=== PATIENT | female | born 1955 | race Caucasian/White ===

== ENCOUNTER → 2016-08-17 | Outpatient (CLI) | payer OTHER ==
[~2016-08-17] MED LIST: ADVIN25/60 INH; AMOX875T PO; ASPI81TA28 PO; BIOT1CAP8 PO; CEPH500C2 PO; CITA40TA4 PO; CYAN100T PO; DXM/4 PO; FLUT0.15 NAE; FLV1 PO; HYDR-5688 PO; IPRA1AER2 INH; LACTCHW3 PO; LEVO1TAB35 PO; MELATAB2 PO; MULT-506 PO; NLT50 PO; OPTIRAY 320 IV PRN; POTA20TA13 PO; PRD/1 PO; PRED10TA PO; PRLSR20 PO; PROC1TAB5 PO; SALI1SPR15 NAE; THIA100T11 PO; THM100 PO; VITACRE; ZINC1CAP PO
--- NOTE | 2016-08-17 13:51 | DIAGNOSTIC IMAGING REPORT ---
CHEST CT WITH CONTRAST CT DOSE: 248.95 mGycm HISTORY: Lung carcinoma LUNG CA, BREAST CA TECHNIQUE: Multiaxial CT images of the chest were performed following the intravenous administration of contrast. COMPARISON: Chest CT 05/21/2016. PET scan 06/07/2016 FINDINGS: Improved study. Findings of adenopathy involving the hilar region on the left, mediastinal, and right axillary adenopathy are considerably improved. The largest node in the high right axilla has diminished from 3.6 to 2.4 cm maximum dimension. Similar decreases at all additional foci are noted. Lateral right breast nodule is unchanged. 1.4 cm nodular density left lower lobe has diminished to 7 mm. There are no or interval pulmonary parenchymal nodular or infiltrative-type changes. Fibrotic changes anterior aspect left upper lobe medially appears stable. IMPRESSION: 1. Considerable improvement in the appearance of the chest. 2. All pathologic findings have diminished with the right axillary dominant node dimension decreasing from 3.6 cm to 2.4 cm. 3. Nodular density left lung base has diminished from 1.4 cm to 7 mm. 4. No evidence for new interval or progressive disease Electronically signed by: Mehul Savage M.D. 08/17/2016 1:50 PM Dictated Date/Time: 08/17/2016 1:43 PM
== END | disposition home or self-care (01) ==
LOC: C.CTS 13:08
PROVIDERS: ATTEND Internal Medicine Hematology & Oncology
DX: C50.411 Malignant neoplasm of upper-outer quadrant of right female breast (principal); C34.32 Malignant neoplasm of lower lobe, left bronchus or lung

== ENCOUNTER → 2016-08-24 | Day surgery (SDC) | payer OTHER ==
[~2016-08-24] VITALS: Ht 160 cm; Wt 59.0 kg
[~2016-08-24] MED LIST changes: +ATROPINE SULFATE 0.1 MG/ML 5ML SYR IV PRN; +CEFAZOLIN 2000 MG/60 ML D5W IV SCH; +CEFAZOLIN SOD 1 GM VIAL ONE; +EpHEDrine SULFATE INJ 50 MG/ML AMP IV PRN; +FENTANYL CITRATE INJ 50 MCG/1 ML 2 ML VIAL IV PRN; +FENTANYL CITRATE INJ 50 MCG/1 ML 2 ML VIAL ONE; +HEPARIN SOD (PORCINE) 1000 UNIT/ML 10 ML VIAL ONE; +HYDROCODONE/ACETAMOPHEN 5/325MG TAB PO PRN; +LACTATED RINGER'S 1000ML 1,000 ML IV SCH; +LIDOCAINE 2% 20 MG/ML 5ML SYR ONE; +LIDOCAINE HCL 1% 20 ML VIAL ONE; +MIDAZOLAM HCL 1 MG/ML 2ML VIAL ONE; +NURSING VERBAL MED ORDER ONE; +ONDANSETRON INJ 2 MG/ML 2 ML VIAL IV PRN; -OPTIRAY 320 IV PRN; +PROMETHAZINE HCL INJ 12.5 MG in SODIUM CHLORIDE 0.9% 50ML 50 ML IV PRN; +PROPOFOL IV EMULSION 10 MG/ML 20 ML VIAL IV ONE; +SCOPOLAMINE 1.5 MG TDSY TD ONE; +THROMBIN FOR SOLN 20000 UNIT KIT ONE
[2016-08-24 05:44] VITALS: BP 106/78; PULSE 74; TEMP 36.7; O2SAT 94; Ht 160 cm; Wt 59.0 kg
--- NOTE | 2016-08-24 06:14 | History and Physical ---
History & Physical Date Aug 24, 2016. History of Present Illness The patient is a 61 year old female with a history of Lt lung small cell Ca and also Rt breast cancer w/ positive Rt axillary LNs- undergoing neoadjuvant chemo. Chemo is currently ongoing and she is in need of an access port Past Medical/Surgical History Medical Problems: (1) Acute anxiety (2) Alcohol abuse (3) Alcohol abuse (4) Alcohol abuse (5) Alcohol intoxication (6) Alcohol intoxication (7) Alcohol withdrawal (8) Alcoholism (9) Anxiety (10) Anxiety (11) COPD exacerbation (12) COPD exacerbation (13) Depression (14) Dizzy (15) Fall (16) Fibromyalgia (17) Head trauma (18) Hepatitis (19) Hypokalemia (20) Hyponatremia (21) Hypoxia (22) Malnourished (23) Nasal fracture (24) PTSD (post-traumatic stress disorder) (25) Right shoulder injury Additional History Hepatic Disease: No Endocrine Disorder: No Allergies Coded Allergies: Vinegar (Verified Allergy, Severe, ANAPHYLAXIS, 08/24/16) Sulfa Antibiotics (Verified Allergy, Intermediate, HIVES, 08/24/16) Adhesives (Verified Adverse Reaction, Mild, `, 08/24/16) Home Medications Scheduled Aspirin (Aspirin Ec), 81 MG PO DAILY Biotin (Biotin), 1 CAN PO DAILY Citalopram (Citalopram Hydrobromide), 40 MG PO DAILY Multivitamin (Multivitamin), 1 TAB PO DAILY Naltrexone HCl (Naltrexone HCl), 50 MG PO DAILY Scheduled PRN Fluticasone Prop/Salmeterol (Advair Diskus 250/50 60 Dose), 1 PUFF INH BID PRN for SOB/Wheezing Ipratropium-Albuterol (Combivent Respimat), 1 PUFFS INH Q4 PRN for Shortness of Breath Physical Examination Skin: warm/dry, no rash Head: atraumatic Neck: supple Respiratory/Chest: no respiratory distress Cardiovascular: regular rate, rhythm Abdomen / GI: non tender Extremities: normal inspection Neurologic/Psych: alert Diagnosis Lung and breast cancer Plan of Treatment for access port
--- NOTE | 2016-08-24 07:52 | [facility] Post Operative Brief Note ---
Immediate Operative Summary Operative Date Aug 24, 2016. Pre-Operative Diagnosis Breast Cancer, lung cancer Post-Operative Diagnosis Same as preoperative Procedure(s) Performed Infusaport Insertion, Left Subclavian Vein Surgeon Dr. Raheem Mercer Can Runner Surgeon(s) nurse Estimated Blood Loss 10ml Findings placed via Lt subclav vein Specimens none per surgeon Anesthesia local/ sedation Complication(s) None Disposition Recovery Room / PACU
--- NOTE | 2016-08-24 07:56 | Discharge Instructions ---
Discharge Instructions Date of Service Aug 24, 2016. Visit Reason for Visit: Breast Cancer and lung cancer Discharge Discharge Diagnosis / Problem: breast and lung cancer Discharge Goals Goal(s): Decrease discomfort, Improve function, Improve disease control Activity Recommendations Activity Limitations: as noted below Lifting Limitations: no more than 10 pounds Exercise/Sports Limitations: until after follow-up appointment May Resume Sexual Activity: when tolerated Shower/Bathe: tomorrow Driving or Machine Use: resume 1 day after discharge SPECIAL CARE INSTRUCTIONS: * Cover incisions and change daily for comfort/drainage. * May use ibuprofen for pain as tolerated. * Expect some swelling and bruising. Call your doctor if: * Temperature above 101 degrees * Pain not relieved by pain medicine ordered * There is increased drainage or redness from any incision * You have any unanswered questions or concerns [phone]. FOLLOW UP VISIT: If not already scheduled, please call the office for a follow-up visit. for 2 weeks- suture removal OFFICE PHONE NUMBER: Dr. Mercer Office Anesthesia . Post Anesthesia Instructions: If you have had General Anesthesia or IV Sedation: * Do not drive today. * Resume driving when surgeon permits. * Do not make important decisions or sign legal documents today. * Call surgeon for: 1. Temperature elevations greater than 101 degrees F. 2. Uncontrollable pain. 3. Excessive bleeding. 4. Persistent nausea and vomiting. 5. Medication intolerance (nausea, vomiting or rash). * For nausea and vomiting use only clear liquids such as: tea, soda, bouillon until nausea subsides, then gradually increase diet as tolerated. * If you have any concerns or questions, call your surgeon's office. If physician is unavailable and it is an emergency, call 911 or go to the nearest emergency room. . Diet Recommendations Recommended Home Diet: resume previous diet Procedures Procedures Performed: Infusaport Insertion, Left Subclavian Vein Pending Studies Studies pending at discharge: no Medical Emergencies . Who to Call and When: Medical Emergencies: If at any time you feel your situation is an emergency, please call 911 immediately. . Non-Emergent Contact Non-Emergency issues call your: Oncologist, Surgeon . . "Provider Documentation" section prepared by Raheem Mercer.
--- NOTE | 2016-08-24 08:06 | OPERATIVE REPORT ---
DATE OF OPERATION: 08/24/2016 PREOPERATIVE DIAGNOSIS: Breast cancer and lung cancer. POSTOPERATIVE DIAGNOSIS: Same. NAME OF OPERATION: Access port placement. STAFF SURGEON: Dr. Mercer. ANESTHESIA: 1% plain lidocaine with sedation. PROCEDURE: The patient was brought in the operating room and placed on the operating table in supine position. A roll was placed between her shoulders. Her chest was prepped and draped in usual fashion. Using 1% plain lidocaine, skin and subcutaneous tissue over the left deltopectoral groove were anesthetized. Incision made carrying dissection down to the cephalic vein which was very small. I could not use the vein for placement. There was some mild bleeding. I placed a suture around the vein. At this point the patient was placed in Trendelenburg position. Using a puncture technique the left subclavian vein was localized, a wire passed under fluoroscopy and then the needle removed. At this point, the patient was placed supine and then the dilator and introducer passed over the wire under fluoroscopy. The dilator and wire were removed and then the catheter passed through the introducer, positioned appropriately and then the introducer removed. A pocket was fashioned in the chest wall. The catheter was shortened and then attached to the port. Port was aspirated and flushed with heparinized solution. The port was placed into the pocket and secured to the chest wall using 3-0 Prolene suture. The site was irrigated with antibiotic solution. Subcutaneous tissue reapproximated using 2-0 chromic catgut suture then the skin reapproximated using 4-0 nylon suture. The patient was transferred to recovery room in stable condition. I attest to the content of the Intraoperative Record and any orders documented therein. Any exceptio ns are noted below.
--- NOTE | 2016-08-24 08:12 | DIAGNOSTIC IMAGING REPORT ---
CHEST ONE VIEW PORTABLE CLINICAL HISTORY: port dyspnea. Replacement. COMPARISON STUDY: 05/22/2016 FINDINGS: Placement of a central catheter in the superior vena cava. No evidence pneumothorax. Lungs remain clear. IMPRESSION: Central catheter placed in the superior vena cava. No evidence pneumothorax. Electronically signed by: Mehul Savage M.D. 08/24/2016 8:10 AM Dictated Date/Time: 08/24/2016 8:09 AM
--- NOTE | 2016-08-24 08:14 | Anesthesiology Progress Note ---
Anesthesia Post Op Note Date & Time Aug 24, 2016 at 08:14 Vital Signs Pain Intensity: 0 Vital Signs Past 12 Hours Date Time Temp Pulse Resp B/P Pulse Ox O2 Delivery O2 Flow Rate FiO2 08/24/16 08:05 36.5 69 18 120/67 94 Room Air 08/24/16 07:55 75 16 127/76 93 Room Air 08/24/16 07:49 36.4 74 16 107/68 96 Room Air 08/24/16 05:44 36.7 74 18 106/78 94 Room Air Notes Mental Status: alert / awake / arousable, participated in evaluation Pt Amnestic to Procedure: Yes Nausea / Vomiting: adequately controlled Pain: adequately controlled Airway Patency, RR, SpO2: stable & adequate BP & HR: stable & adequate Hydration State: stable & adequate Anesthetic Complications: no major complications apparent
[2016-08-24 08:20] VITALS: BP 115/80; PULSE 76; TEMP 36.5; O2SAT 94
[2016-08-24 08:50] VITALS: BP 126/75; PULSE 69; TEMP 36.6; O2SAT 96
[2016-08-24 09:20] VITALS: BP 127/84; PULSE 72; TEMP 36.6; O2SAT 96
== END | disposition home or self-care (01) ==
LOC: C.ACU 04:52
PROVIDERS: ATTEND Surgery
DX: C50.919 Malignant neoplasm of unspecified site of unspecified female breast (principal); C34.90 Malignant neoplasm of unspecified part of unspecified bronchus or lung; M19.90 Unspecified osteoarthritis, unspecified site; J44.9 Chronic obstructive pulmonary disease, unspecified

== ENCOUNTER → 2016-12-18 | Outpatient (CLI) | payer OTHER ==
[~2016-12-18] MED LIST changes: -ATROPINE SULFATE 0.1 MG/ML 5ML SYR IV PRN; -BIOT1CAP8 PO; -CEFAZOLIN 2000 MG/60 ML D5W IV SCH; -CEFAZOLIN SOD 1 GM VIAL ONE; -CYAN100T PO; -EpHEDrine SULFATE INJ 50 MG/ML AMP IV PRN; -FENTANYL CITRATE INJ 50 MCG/1 ML 2 ML VIAL IV PRN; -FENTANYL CITRATE INJ 50 MCG/1 ML 2 ML VIAL ONE; +GADAVIST IV PRN; -HEPARIN SOD (PORCINE) 1000 UNIT/ML 10 ML VIAL ONE; -HYDROCODONE/ACETAMOPHEN 5/325MG TAB PO PRN; -LACTATED RINGER'S 1000ML 1,000 ML IV SCH; -LIDOCAINE 2% 20 MG/ML 5ML SYR ONE; -LIDOCAINE HCL 1% 20 ML VIAL ONE; -MELATAB2 PO; -MIDAZOLAM HCL 1 MG/ML 2ML VIAL ONE; -NURSING VERBAL MED ORDER ONE; -ONDANSETRON INJ 2 MG/ML 2 ML VIAL IV PRN; -POTA20TA13 PO; -PROMETHAZINE HCL INJ 12.5 MG in SODIUM CHLORIDE 0.9% 50ML 50 ML IV PRN; -PROPOFOL IV EMULSION 10 MG/ML 20 ML VIAL IV ONE; -SCOPOLAMINE 1.5 MG TDSY TD ONE; -THROMBIN FOR SOLN 20000 UNIT KIT ONE; -ZINC1CAP PO
--- NOTE | 2016-12-18 12:38 | DIAGNOSTIC IMAGING REPORT ---
MRI OF THE BRAIN COMBO CLINICAL HISTORY: Breast cancer. COMPARISON STUDY: MRI of the brain dated 06/05/2016 and 05/22/2016. TECHNIQUE: MRI of the brain was performed utilizing various T1 and T2-weighted sequences in the axial, sagittal, and coronal planes. Contrast-enhanced sequences were acquired following the administration of 6 cc of Gadavist. FINDINGS: Brain parenchyma: There is minimal patchy subcortical and periventricular microangiopathic disease. The brain parenchyma is otherwise normal in appearance. There is no hemorrhage or mass effect. There is no restricted diffusion to suggest acute ischemia. The small focus of restricted diffusion seen in the dejan seen on 06/05/2016 is no longer apparent. There is a punctate focus of abnormal enhancement identified within the left cerebellar peduncle on axial image #6, which was also corroborated on the sagittal sequence. An additional punctate focus of enhancement is questioned in the right posterior frontal lobe, best seen on sagittal postcontrast image #7 and coronal postcontrast image #14. There is no associated edema. Manzanares-white matter differentiation is preserved. No extra-axial fluid collection is seen. The cerebellar tonsils are normal in configuration. Ventricles, sulci, and cisterns: Normal in configuration. Pituitary and sella: Partially empty sella is incidentally noted. Intracranial vasculature: Normal flow voids are maintained at the skull base. Orbits: The bony orbits are grossly intact. Orbital contents are normal in appearance. Sinuses and mastoids: There are small bilateral mastoid effusions. Mild to moderate nodular mucosal thickening is seen in the left maxillary antrum. Trace mucosal thickening is seen in the right maxillary antrum. The remaining paranasal sinuses are clear. Calvarium: Unremarkable. Cervical cord: Partially visualized cervical spinal cord is normal in morphology and signal intensity. IMPRESSION: 1. Question 2 punctate foci of abnormal enhancement within the right frontal lobe and the left cerebellar peduncle. These were both seen on more than one sequence and were not clearly identified on prior MRI examinations. Although indeterminant, these are concerning for punctate foci of metastatic disease. Close attention at follow-up is recommended. 2. No additional enhancing lesions are identified. 3. There is no hemorrhage, mass effect, or evidence of acute ischemia. 4. The tiny focus of restricted diffusion in the dejan seen on 06/05/2016 is no longer apparent. Electronically signed by: Bryson Moyer M.D. 12/18/2016 12:37 PM Dictated Date/Time: 12/18/2016 12:24 PM
== END | disposition home or self-care (01) ==
LOC: C.MRIBC 11:35
PROVIDERS: ATTEND Nurse Practitioner Family
DX: C50.411 Malignant neoplasm of upper-outer quadrant of right female breast (principal)

== ENCOUNTER 2017-01-01 07:46 | Inpatient (IN) | payer OTHER ==
[2016-12-26 13:58] VITALS: BMI 23.0
--- NOTE | 2016-12-26 14:29 | PAT Medication Instructions ---
Service Date Dec 26, 2016. Current Home Medication List Aspirin (Aspirin Ec), 81 MG PO QPM Citalopram (Citalopram Hydrobromide), 40 MG PO QAM Fluticasone Prop/Salmeterol (Advair Diskus 250/50 60 Dose), 1 PUFF INH BID PRN for SOB/Wheezing Fluticasone Propionate (Nasal) (Flonase Allergy Relief), 2 SPRAYS GISSELLE PN Ipratropium-Albuterol (Combivent Respimat), 1 PUFFS INH Q4 PRN for Shortness of Breath Multivitamin (Multivitamin), 1 TAB PO QAM Omeprazole (Prilosec), 20 MG PO QAM Saline (Saline Nasal [place] Infant), 1-2 SPRY GISSELLE PRN Medication Instructions For Your Scheduled Surgery - Stopped already in anticipation of procedure: Aspirin (Aspirin Ec), 81 MG PO QPM - Hold the following medications the morning of surgery: Multivitamin (Multivitamin), 1 TAB PO QAM - Take the following medications the morning of surgery with a sip of water OTHERWISE NOTHING TO EAT OR DRINK AFTER MIDNIGHT: Saline (Saline Nasal [place] ), 1-2 SPRY GISSELLE PRN Omeprazole (Prilosec), 20 MG PO QAM Citalopram (Citalopram Hydrobromide), 40 MG PO QAM Fluticasone Prop/Salmeterol (Advair Diskus 250/50 60 Dose), 1 PUFF INH BID PRN for SOB/Wheezing Fluticasone Propionate (Nasal) (Flonase Allergy Relief), 2 SPRAYS GISSELLE PN Ipratropium-Albuterol (Combivent Respimat), 1 PUFFS INH Q4 PRN for Shortness of Breath - Take the following medications as scheduled the night before surgery: Saline (Saline Nasal [place] ), 1-2 SPRY GISSELLE PRN Fluticasone Prop/Salmeterol (Advair Diskus 250/50 60 Dose), 1 PUFF INH BID PRN for SOB/Wheezing Fluticasone Propionate (Nasal) (Flonase Allergy Relief), 2 SPRAYS GISSELLE PN Ipratropium-Albuterol (Combivent Respimat), 1 PUFFS INH Q4 PRN for Shortness of Breath If you have any questions please call us at [phone] or [phone] or [phone]
--- NOTE | 2016-12-26 15:13 | DIAGNOSTIC IMAGING REPORT ---
TWO VIEW CHEST CLINICAL HISTORY: Preoperative examination. FINDINGS: PA and lateral chest radiographs are compared to study dated 08/24/2016 and correlated with chest CT dated 08/17/2016. A left subclavian central venous infusion port is unchanged in position. The cardiomediastinal silhouette is unremarkable. There is atherosclerotic calcification of the thoracic aorta. Calcified mediastinal and hilar lymph nodes are observed. Dizziness and chronic interstitial thickening are similar to previous. No airspace consolidation or pleural effusion is identified. There is no pneumothorax. The skeletal structures are osteopenic. Degenerative change and scoliosis are noted in the thoracic spine. IMPRESSION: Emphysema and chronic changes as above. No acute cardiopulmonary abnormality is seen. Electronically signed by: Bryson Moyer M.D. 12/26/2016 3:12 PM Dictated Date/Time: 12/26/2016 3:10 PM
[2017-01-01] VITALS (8 sets, daily range): BP systolic 96–108; BP diastolic 64–70; PULSE 74–89; TEMP 36.5–36.6; O2SAT 92–95; Ht 160 cm; Wt 59.6 kg
[~2017-01-01] VITALS: Ht 160 cm; Wt 59.6 kg
[~2017-01-01 07:46] MED LIST changes: -AMOX875T PO; +CEFAZOLIN 2000 MG/60 ML D5W IV SCH; -CEPH500C2 PO; -DXM/4 PO; -FLV1 PO; -GADAVIST IV PRN; -HYDR-5688 PO; +LACTATED RINGER'S 1000ML 1,000 ML IV SCH; -LACTCHW3 PO; -LEVO1TAB35 PO; -NLT50 PO; -PRD/1 PO; -PRED10TA PO; -PROC1TAB5 PO; -THIA100T11 PO; -THM100 PO; -VITACRE
--- NOTE | 2017-01-01 10:09 | DIAGNOSTIC IMAGING REPORT ---
LYMPHOSCINTIGRAPHY CLINICAL HISTORY: 61-year-old female with right breast cancer. PROCEDURE: Using standard sterile technique, 4 intradermal and one deep injection of 0.506 mCi of Lymphoseek was placed in the right breast. The patient tolerated the procedure well. There were no immediate complications. The patient was subsequently transported to the surgical suite. No imaging was obtained at the referring physician's request. IMPRESSION: Injection of 0.506 mCi of Lymphoseek in the right breast. Electronically signed by: Ethan Benitez M.D. 01/01/2017 10:08 AM Dictated Date/Time: 01/01/2017 10:07 AM
--- NOTE | 2017-01-01 11:41 | History & Physical Bridge Note ---
H&P Re-Evaluation Bridge Note: I have examined the patient, reviewed the History & Physical and in the interval since the performance of the History & Physical I have noted the following changes of clinical significance: No changes noted
[2017-01-01] MEDS ORDERED: ISOSULFAN BLUE 10 MG/ML VIAL 5 ML ONE (11:43)
[2017-01-01] MEDS ORDERED: BUPIVACAINE 0.5 % 5 MG/1 ML MPF 30ML VIAL ONE (11:44)
[2017-01-01] MEDS ORDERED: MIDAZOLAM HCL 1 MG/ML 2ML VIAL ONE (11:47)
[2017-01-01] MEDS ORDERED: FENTANYL CITRATE INJ 50 MCG/1 ML 2 ML VIAL ONE (11:47)
[2017-01-01] MEDS ORDERED: HYDROmorphone INJ 2 MG/ML SYR/VIAL ONE (13:07)
[2017-01-01] MEDS ORDERED: LACTATED RINGER'S 1000ML 1,000 ML IV SCH (13:36)
[2017-01-01] MEDS ORDERED: HYDROCODONE/ACETAMOPHEN 5/325MG TAB PO PRN (13:45)
[2017-01-01] MEDS ORDERED: PROMETHAZINE HCL INJ 25 MG in SODIUM CHLORIDE 0.9% 50ML 50 ML IV PRN (13:45)
[2017-01-01] MEDS ORDERED: ONDANSETRON INJ 2 MG/ML 2 ML VIAL IV PRN ×2 (13:45→14:30)
[2017-01-01] MEDS ORDERED: MoRPHine SULFATE 4 MG/ML 1 ML CARP\\VIAL IV PRN (13:45)
[2017-01-01] MEDS ORDERED: HYDROmorphone INJ 1 MG/ML SYR ONE (14:01)
--- NOTE | 2017-01-01 14:21 | Anesthesiology Progress Note ---
Anesthesia Post Op Note Date & Time Jan 01, 2017 at 14:21 Vital Signs Pain Intensity: 2 Vital Signs Past 12 Hours Date Time Temp Pulse Resp B/P (MAP) Pulse Ox O2 Delivery O2 Flow Rate FiO2 01/01/17 14:05 89 16 101/64 (75) 97 Oxymask 8 01/01/17 13:55 92 17 105/56 (78) 99 Oxymask 10 01/01/17 13:47 36.6 97 14 96/63 (76) 98 Oxymask 10 01/01/17 09:56 36.5 86 20 107/64 (78) 94 Room Air Notes Mental Status: alert / awake / arousable, participated in evaluation Pt Amnestic to Procedure: Yes Nausea / Vomiting: adequately controlled Pain: adequately controlled Airway Patency, RR, SpO2: stable & adequate BP & HR: stable & adequate Hydration State: stable & adequate Anesthetic Complications: no major complications apparent
[2017-01-01] MEDS ORDERED: EpHEDrine SULFATE INJ 50 MG/ML AMP IV PRN (14:30)
[2017-01-01] MEDS ORDERED: ATROPINE SULFATE 0.1 MG/ML 5ML SYR IV PRN (14:30)
[2017-01-01] MEDS ORDERED: FENTANYL CITRATE INJ 50 MCG/1 ML 2 ML VIAL IV PRN (14:30)
[2017-01-01] MEDS ORDERED: HYDROmorphone INJ 1 MG/ML SYR IV PRN (14:30)
--- NOTE | 2017-01-01 14:43 | [facility] Operative Report ---
Operative Report Operative Date Jan 01, 2017. Pre-Operative Diagnosis Right breast cancer Post-Operative Diagnosis Same Procedure(s) Performed Right Breast Lumpectomy with Needle Localization, and Right [place] Lymph Node Biopsy Surgeon Dr Mercer Clinical Pharmacist Surgeon(s) Ronald Durbin PA-C Estimated Blood Loss 25ml Findings Large Rt axillary mass Specimens A. Right breast tissue needle and skin lateral, long silk medial, short silk superior B. Right breast tissue additional superior tissue silk lateral, methylene blue new margin C. Right breast tissue additional inferior tissue silk lateral, methylene blue new margin D. Right axillary tissue Drains #[id number] ALVARO to Rt axilla Anesthesia gen Complication(s) None Disposition Recovery Room / PACU Description of Procedure Patient was brought in the operative room placed in operative room table in the supine position. Her right arm was extended onto an arm board and her axilla and breast prepped and draped in usual fashion. He had a needle in the axilla and in the breast placed in the breast center. Scissors was made around the needle and the breast carry dissection down excising the tissue which was marked with the needle and skin lateral long silk suture medial short silk silk suture superior. Tissue was placed into into the Faxitron and the image sent to the breast center. The clip was within the center of the specimen. She'll superior and inferior tissue were taken sizing the medial deep margin. These specimens were marked with a silk suture lateral and methylene blue on the new margin. Tissue is reapproximated using 20 plain catgut suture and the skin reapproximated using 5-0 Prolene suture. Right axilla was approached and incision made around the needle. Needle was withdrawn and subcutaneous tissue but the mass was deep. A large right axillary mass and other lymph nodes which were excised. There were associated blood vessels which were ligated using 2-0 plain and chromic suture. Deep tissue was reapproximated using 20 plain catgut suture after a #15 round David-Valero drain was placed into the axilla secured to the skin using 3-0 nylon suture. It was reapproximated using 4-0 nylon suture. Resting is applied and patient transferred to recovery room. I attest to the content of the Intraoperative Record and any orders documented therein. Any exceptions are noted below.
--- NOTE | 2017-01-01 15:12 | MAMMOGRAPHY REPORT ---
BILATERAL DIGITAL DIAGNOSTIC MAMMOGRAM TOMOSYNTHESIS WITH CAD: 01/01/2017 CLINICAL HISTORY: 61-year-old woman presents for preoperative needle and wire localization for biopsy -proven right breast cancer and right axillary lymph node containing metastatic disease. She is stat us post chemotherapy, mostly targeting her lung cancer which was diagnosed just after her breast canc er. TECHNIQUE: Bilateral breast tomosynthesis in addition to standard 2D mammography was performed. Curre nt study was also evaluated with a Computer Aided Detection (CAD) system. COMPARISON: Comparison is made to exams dated: 04/24/2016 mammogram, 03/23/2016 mammogram, 04/02/2013 mammogram, 03/27/2012 mammogram, 03/22/2011 mammogram, and 03/16/2010 mammogram - [facility]. BREAST COMPOSITION: There are scattered areas of fibroglandular density in both breasts. FINDINGS: There is a ribbon shaped metallic biopsy marker in the upper outer middle one third of the right breast, denoting the previous location of the patient's biopsy proven cancer. Currently, there is minimal architectural distortion to the biopsy marker clip but no persistent mass as seen on the April 2016 mammograms. An 8.6 mm abnormal lymph node in the far posterior superior right breast o n the MLO view is no longer seen. A portion of an enlarged right axillary lymph node in the far supe rior and posterior MLO view is incompletely visualized. There are mild vascular calcifications and scattered benign-appearing calcifications within the left breast. No obvious new mass, focal area of architectural distortion or suspicious mass or calcificat ions are seen in the left breast. IMPRESSION: 1. There is near complete mammographic resolution of the patient's biopsy proven cancer in the right 10:00 breast. For needle localization purposes, targeted ultrasound will be performed to see if the biopsy marker clip is identified or if there is any residual masslike tissue for localization purpos es. Please refer to the needle localization report for full detail. 2. No mammographic evidence of malignancy in the left breast. Approximately 10% of breast cancers are not detected with mammography. A negative mammographic report should not delay biopsy if a clinically suggestive mass is present. Evie Power M.D. ay/:01/01/2017 12:33:38 House Mover: Bridgette ADAMS(Yesika)(Elizabeth), [facility] BI-RADS Code: n/a
[2017-01-01] MEDS ORDERED: PROMETHAZINE HCL INJ 12.5 MG in SODIUM CHLORIDE 0.9% 50ML 50 ML IV PRN (16:30)
[2017-01-01] MEDS: MoRPHine SULFATE 2 MG/ML CARP IV PRN ×2 (18:15→23:35)
[2017-01-01] MEDS: CEFAZOLIN IV 1,000 MG in DEXTROSE 5% 50ML 50 ML IV SCH ×2 (18:15→23:35)
--- NOTE | 2017-01-01 20:05 | Medical Consult ---
Consultation Date of Consultation: Jan 01, 2017. Attending Physician: Raheem Mercer M.D. Reason for Consultation: Medical Consultation History of Present Illness This is a 61 yo F with PMHx of small cell lung carcinoma stage IIIB origionally diagnosed via biopsy on 05/22/2016, s/p 6 cycles of taxotere and carboplatin completed on 10/02/16, XRT finished on 12/13/16. 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 Other PMHx includes alcohol abuse, anxiety, PTSD, COPD. She presents for an elective Left breast lumpectomy by Dr. Mercer. The patient was seen and examined at bedside s/p procedure. She is sitting up in bed and reports some soreness, but overall feels well. She has ambulated to the bathroom with assistance. She ate dinner without difficulty. She is currently wearing 4L via NC but reports she does not wear supplemental O2 at home. Past Medical/Surgical History Medical Problems: (1) Acute alcohol intoxication Status: Acute (2) Alcohol abuse Status: Chronic (3) Alteration in self-care ability Status: Acute (4) Anxiety Status: Chronic (5) Closed head injury Status: Acute (6) Depression Status: Chronic (7) Facial abrasion Status: Acute (8) Facial contusion Status: Acute (9) Fibromyalgia Status: Chronic (10) Generalized weakness Status: Acute (11) Hepatitis Status: Chronic (12) Hyponatremia Status: Acute (13) Malnourished Status: Chronic (14) PTSD (post-traumatic stress disorder) Status: Chronic Family History FH: cancer FH: heart disease Social History Smoking Status: Former Smoker Smokeless Tobacco Use: No Alcohol Use: occasionally Drug Use: none Marital Status: single Housing Status: lives alone Occupation Status: employed Allergies Coded Allergies: Vinegar (Verified Allergy, Severe, ANAPHYLAXIS, 01/01/17) Sulfa Antibiotics (Verified Allergy, Intermediate, HIVES,SWELLING,RASH, ) Latex (Verified Allergy, Mild, rash, 01/01/17) Adhesives (Verified Adverse Reaction, Mild, RASH IRRITATION, 01/01/17) Current Inpatient Medications Current Inpatient Medications Medications (Trade) Dose Ordered Sig/Gaudencio Route Start Time Stop Time Status Last Admin Dose Admin Pantoprazole Sodium (Protonix Tab) 40 mg QAM PO 01/02/17 09:00 02/01/17 08:59 Cefazolin Sodium 1000 mg/Dextrose 55 ml @ 100 mls/hr Q6 IV 01/01/17 18:00 01/11/17 17:59 01/01/17 18:15 100 MLS/HR Acetaminophen/ Hydrocodone Bitart ([place] 5/325 Tab) 1 tab Q4 PRN PO 01/01/17 13:45 01/15/17 13:44 Acetaminophen/ Hydrocodone Bitart ([place] 5/325 Tab) 2 tab Q4 PRN PO 01/01/17 13:45 01/15/17 13:44 Morphine Sulfate (MoRPHine SULFATE INJ) 2 mg Q4H PRN IV 01/01/17 13:45 01/15/17 13:44 01/01/17 18:15 2 MG Morphine Sulfate (MoRPHine SULFATE INJ) 4 mg Q4H PRN IV 01/01/17 13:45 01/15/17 13:44 Promethazine HCl 25 mg/Sodium Chloride 51 ml @ 204 mls/hr Q6H PRN IV 01/01/17 13:45 01/31/17 13:44 Ondansetron HCl (Zofran Inj) 4 mg Q6H PRN IV 01/01/17 13:45 01/31/17 13:44 Fentanyl Citrate (Fentanyl Inj) 25 mcg Q5M PRN IV 01/01/17 14:30 01/01/17 19:30 Hydromorphone HCl (Dilaudid Inj) 0.5 mg Q5M PRN IV 01/01/17 14:30 01/01/17 19:30 Ondansetron HCl (Zofran Inj) 4 mg ONE PRN IV 01/01/17 14:30 01/01/17 19:30 Ephedrine Sulfate (EpHEDrine SULFATE INJ) 5 mg Q5M PRN IV 01/01/17 14:30 01/01/17 19:30 Atropine Sulfate (Atropine Sulfate 0.1MG/Ml Inj) 0.5 mg Q1M PRN IV 01/01/17 14:30 01/01/17 19:30 Promethazine HCl 12.5 mg/Sodium Chloride 50.5 ml @ 204 mls/hr Q6H PRN IV 01/01/17 16:30 01/31/17 16:29 Review of Systems Constitutional: No fever, sweats or chills Eyes: No diplopia, no worsening or blurred vision ENT: normal hearing, no trouble swallowing Respiratory: No cough, sputum, dyspnea at rest or on exertion Cardiovascular: No chest pain, tightness or palpitations Abdomen: No pain, nausea, vomiting, diarrhea or constipation Musculoskeletal: No joint pain, calf pain, swelling Neurologic: No weakness, numbness/tingling, or balance problems Psychiatric: No anxiety or depression Skin: No rash or itch Physical Exam Date Time Temp Pulse Resp B/P (MAP) Pulse Ox O2 Delivery O2 Flow Rate FiO2 01/01/17 19:14 36.6 89 18 104/70 (81) 93 4.0 01/01/17 16:22 92 Nasal Cannula 4.0 01/01/17 16:05 36.6 81 18 103/66 (78) 92 Nasal Cannula 4.0 01/01/17 15:45 90 15 90/60 (74) 93 Nasal Cannula 4 01/01/17 15:30 89 16 93/62 (66) 93 Nasal Cannula 4 01/01/17 15:15 86 16 91/70 (77) 94 Nasal Cannula 4 01/01/17 15:00 91 15 95/74 (79) 92 Nasal Cannula 4 01/01/17 14:45 89 13 91/65 (76) 90 Nasal Cannula 4 01/01/17 14:35 91 16 95/67 (76) 94 Nasal Cannula 4 01/01/17 14:25 37.2 91 16 93/74 (80) 94 Nasal Cannula 4 01/01/17 14:15 89 16 102/63 (76) 96 Oxymask 6 01/01/17 14:05 89 16 101/64 (75) 97 Oxymask 8 01/01/17 13:55 92 17 105/56 (78) 99 Oxymask 10 01/01/17 13:47 36.6 97 14 96/63 (76) 98 Oxymask 10 01/01/17 09:56 36.5 86 20 107/64 (78) 94 Room Air General: awake, alert, no apparent distress, Head: Normocephalic, atraumatic, +hair growing back in ENT: PERRL, EOMI, no pharyngeal exudate, mucous membranes moist Chest: Diminished breath sounds throughout, on 4L via NC, no adventitious breath sounds, + bandage over left chest wall C/D/I, ALVARO drain in place with bloody outs. Cardiac: Regular rate and rhythm, no murmur, no JVD, normal peripheral pulses, good capillary refill Abdominal: NABS x 4 quadrants, soft, nontender to palpation, no rebound, guarding or tenderness Extremities: Normal inspection, no peripheral edema or erythema, calfs nontender to palpation Psych: Normal mood and affect Neuro: AAO x 3, strength intact bilaterally and related 5/5, no motor deficits, speech is clear, no peripheral sensory deficits Assessment & Plan This is a 61 yo F with PMHx of small cell lung carcinoma stage IIIB originally diagnosed via biopsy on 05/22/2016, s/p 6 cycles of taxotere and carboplatin completed on 10/02/16, XRT finished on 12/13/16. 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 Other PMHx includes alcohol abuse, anxiety, PTSD, COPD. Pt is s/p left lumpectomy. S/p Left lumpectomy Invasive ductal carcinoma with metastatic carcinoma to the axilla, stage IIIB - originally diagnosed 03/23/2016 via mammogram and confirmed with ultrasound guided biopsy on 04/24/2016,, ER, [place], & HER-2/maida negative with neoadjuvant chemotherapy with taxol and carboplatin. - Pain management per primary team - Bowel regimen in place with narcotics on board - Continue to monitor ALVARO drain with strict I/Os - Follow with Dr. Parrish for chemotherapy as an outpatient Small cell lung carcinoma, stage III B - originally diagnosed via biopsy on 05/22/2016, s/p 6 cycles of taxotere and carboplatin completed on 10/02/16, XRT finished on 12/13/16. - Currently requiring 4 L O2 via NC, attempt to wean as able - Consider a 2 step prior to discharge to determine O2 Needs COPD - Continue advair and combivent inhalers as directed. Alcohol abuse - Will need to discuss cessation with the patient prior to discharge. Anxiety PTSD - Continue celexa 40 mg daily DVT ppx: Resume asa 81 mg per primary team, TEDs, SCDs CODE STATUS: Full code Disposition: From home, discharge per primary team. Reviewed: Pt Seen/Exam by Me History Physician Nurse First Assist Supervision Note: I interviewed and examined the patient. Discussed with CHADWICK Johnson and agree with findings and plan as documented in the note. Any exceptions or clarifications are listed here: Pt here s/p RIGHT BREAST lumpectomy and sentinel node biopsy. SHe is having a sore throat and coughing, feels post-nasal gtt since surgery. SHe has a long h/ o smoking but quit smoking last year. She has a h/o primary lung CA with mets to LNs and primary RIGHT breast CA with mets to axilla and has undergone neoadjuvant chemo for both as well as XRT for the lung. She is requesting Flonase and says that she has been taking her Advair scheduled at home usually in the summer and Fall. Also is requesting magic mouthwash which has helped her in the past. Vitals reviewed NAD, alopecia on head, coughing at times RRR no mgr CTAB no wcr Right chest/breast and axilla with dressing c/d/i Abd +BS soft NT ND Ext no edema 61 yo female with right breast CA and lung CA, here s/p RIGHT lumpectomy and sentinel LN biopsy. -post-op care as per SUrgery -pain control -add on prn albuterol nebs for cough and h/o COPD -make Advair scheduled -add on Flonase from home and Magic mouthwash as per pt's request -Proph SCDs Documented By: Fernanda Wallis
[2017-01-01] MEDS ORDERED: NURSING VERBAL MED ORDER ONE (20:30)
[2017-01-01] MEDS ORDERED: ALBUTEROL 0.083% NEBU SOLN 3 ML VIAL INH PRN (20:45)
[2017-01-01] MEDS ORDERED: MAGIC MOUTHWASH PO PRN (20:45)
[2017-01-01] MEDS ORDERED: COUGH DROP (SUGAR FREE) LOZ 24 LOZ/1 BOX PO PRN (20:45)
[2017-01-01] MEDS: FLUTICASONE/SALMETEROL 250/50 (ADVAIR) 14 PUFF/1 INHALER INH SCH (21:00)
[2017-01-01] MEDS ORDERED: DEXAMETHASONE CONC SOLN 3.75 MG, NYSTATIN SUSP 30 ML, DiphenhydrAMINE HCL SYRUP 300 MG,... PO PRN ×5 (21:00)
[2017-01-01] MEDS ORDERED: FLUTICASONE PROPIONATE NA SPR 16 GM BTL SCH (21:00)
[2017-01-02] MEDS: HYDROCODONE/ACETAMOPHEN 5/325MG TAB PO PRN ×2 (02:01→08:39)
[2017-01-02 03:59] VITALS: BP 96/57; PULSE 70; TEMP 36.7; O2SAT 98
[2017-01-02 05:15] VITALS: O2SAT 84
[2017-01-02 05:20] VITALS: O2SAT 91
[2017-01-02] MEDS: CEFAZOLIN IV 1,000 MG in DEXTROSE 5% 50ML 50 ML IV SCH (05:38)
[2017-01-02 06:04] LABS: HEMATOCRIT 35.1 % (37-47); MEAN CELL VOLUME 103.5 fL (80-100); MEAN CORPUSCULAR HEMOGLOBIN 34.8 pg (25-34); MEAN CORPUSCULAR HGB CONC 33.6 g/dl (32-36); PLATELET COUNT 187 K/uL (130-400); RED BLOOD COUNT 3.39 M/uL (4.2-5.4); WHITE BLOOD COUNT 5.43 K/uL (4.8-10.8)
[2017-01-02] MEDS ORDERED: CEPH500C2 PO (06:29)
[2017-01-02] MEDS ORDERED: HYDR-5688 PO (06:29)
[2017-01-02 06:32] LABS: BUN/CREATININE RATIO 12.5 (10-20); CALCIUM 8.9 mg/dl (8.5-10.1); CREATININE 0.6 mg/dl (0.60-1.20); POTASSIUM 4.1 mmol/L (3.5-5.1)
--- NOTE | 2017-01-02 06:32 | Discharge Instructions ---
Discharge Instructions Date of Service Jan 02, 2017. Admission Reason for Admission: Breast Cancer Discharge Discharge Diagnosis / Problem: Rt breast cancer Discharge Goals Goal(s): Decrease discomfort, Improve function, Improve disease control Activity Recommendations Activity Limitations: as noted below Lifting Limitations: no more than 25 pounds Exercise/Sports Limitations: until after follow-up appointment May Resume Sexual Activity: when tolerated Shower/Bathe: no limitations (may shower- no bath until sutures removed) Driving or Machine Use: resume 3 days after discharge SPECIAL CARE INSTRUCTIONS: * Cover incisions and change daily for comfort/drainage. * Empty drain 2-3 times per day and record. * May use ibuprofen for pain as tolerated. * Expect some swelling and bruising. Call your doctor if: * Temperature above 101 degrees * Pain not relieved by pain medicine ordered * There is increased drainage or redness from any incision * You have any unanswered questions or concerns [phone]. FOLLOW UP VISIT: If not already scheduled, please call the office for a follow-up visit. for next Sunday/or Sunday- drain , wound check OFFICE PHONE NUMBER: Dr. Mercer Office . Current Hospital Diet Patient's current hospital diet: Regular Diet Discharge Diet Recommended Diet: Regular Diet Procedures Procedures Performed: Right Breast Lumpectomy with Needle Localization, and Right [place] Lymph Node Biopsy Pending Studies Studies pending at discharge: no Medical Emergencies . Who to Call and When: Medical Emergencies: If at any time you feel your situation is an emergency, please call 911 immediately. . Non-Emergent Contact Non-Emergency issues call your: Primary Care Provider, Surgeon . "Provider Documentation" section prepared by Raheem Mercer. . VTE Core Measure Inpt VTE Proph given/why not?: SCD's
--- NOTE | 2017-01-02 06:34 | Discharge Summary ---
Discharge Summary Date of Service Jan 02, 2017. Discharge Summary Admission Date: Jan 01, 2017 at 13:39 Discharge Date: Jan 02, 2017 Primary Diagnosis: Rt breast cancer Secondary Diagnoses/Problems: Medical Problems: (1) Acute alcohol intoxication Status: Acute (2) Alcohol abuse Status: Chronic (3) Alcohol withdrawal Status: Resolved (4) Alteration in self-care ability Status: Acute (5) Anxiety Status: Chronic (6) Closed head injury Status: Acute (7) COPD exacerbation Status: Resolved (8) Depression Status: Chronic (9) Dizzy Status: Resolved (10) Facial abrasion Status: Acute (11) Facial contusion Status: Acute (12) Fibromyalgia Status: Chronic (13) Generalized weakness Status: Acute (14) Hepatitis Status: Chronic (15) Hyponatremia Status: Resolved (16) Hyponatremia Status: Acute (17) Malnourished Status: Chronic (18) PTSD (post-traumatic stress disorder) Status: Chronic Procedures: Rt partial mastectomy with axillary dissection Discharge Instructions Last Recorded Wt (Kilograms): 59.600 Allergies: Coded Allergies: Vinegar (Verified Allergy, Severe, ANAPHYLAXIS, 01/01/17) Sulfa Antibiotics (Verified Allergy, Intermediate, HIVES,SWELLING,RASH, ) Latex (Verified Allergy, Mild, rash, 01/01/17) Adhesives (Verified Adverse Reaction, Mild, RASH IRRITATION, 01/01/17) Special Care: Call your doctor if: * Temperature above 101 degrees * Pain not relieved by pain medicine ordered * There is increased drainage or redness from any incision * You have any unanswered questions or concerns. Avoid all tobacco products. If you need help to stop smoking, call [place] FREE QUITLINE at . This is a free call. Admission Information Admission HPI: Patient with known right breast cancer. She also has a history of lung cancer. She underwent neoadjuvant chemotherapy. She is now brought in the hospital on January 01 for definitive breast surgery. She was taken to the operating room where she underwent right partial mastectomy with axillary dissection. This was done via needle localization. Patient has done very well overnight. He does have a drain in place and will be discharged home today with the drain and a visiting nurse. We'll check her in the surgical clinic early next week. Hospital Course Total time spent on discharge = This includes examination of the patient, discharge planning, medication reconciliation, and communication with other providers.
[2017-01-02 07:39] VITALS: BP 108/74; PULSE 74; TEMP 36.6; O2SAT 92
--- NOTE | 2017-01-02 07:40 | MAMMOGRAPHY REPORT ---
MULTIPLE NEEDLE LOCALIZATION RIGHT BREAST: 01/01/2017 CLINICAL HISTORY: Biopsy-proven right breast cancer and metastatic disease identified within a biopsi ed right axillary lymph node. Patient presents for preoperative localization. She has been undergoi ng chemotherapy for lung cancer which was diagnosed just after her right breast cancer, but also acti ng as neoadjuvant chemotherapy for the right breast cancer. COMPARISON: Comparison is made to exams dated: 04/24/2016 mammogram, 04/24/2016 ultrasound biopsy, 04/24/2016 ultrasound biopsy, 04/12/2016 ultrasound, 03/23/2016 mammogram, and 04/02/2013 mammogram - [facility]. PATIENT CONSENT: The risks of the procedure were explained to the patient and informed consent was ob tained. PROCEDURE DESCRIPTION: Prior to the procedure, bilateral diagnostic mammograms including tomosynthesi s images were obtained, given that no mammographic imaging or breast ultrasound was performed after t neoadjuvant chemotherapy. There is near-complete mammographic resolution of the biopsied mass in the 10:00 middle one third of the right breast. A ribbon-shaped biopsy marker clip remains in place. There is mild residual asymmetry at that site. Further evaluation with ultrasound was performed. An enlarged 8 mm lymph node in the right axillary tail is no longer seen. Portion of an enlarged axi llary lymph node more superiorly in the right axilla is partially visualized on the right MLO view. The lymph node and the biopsy marker clip in the 10:00 right breast on the intended target for preope rative localization. The skin of the right breast was cleansed with Betadine. 1% buffered lidocaine was administered in t he 10:00 axis in an area of vague hypoechoic tissue and barely evident biopsy marker clip. A 5 cm Sotelo wkins 2 needle and wire combination was inserted into the area of the biopsy marker clip and locked i n place. Then targeted ultrasound was performed in the right axilla. A morphologically abnormal lymph node wi th thickened cortex is still seen. 1% buffered lidocaine without epinephrine was administered as loc al anesthesia. A second 5 cm Lowry 2 needle and wire combination was inserted into this lymph node . Post-localization right CC and ML views were obtained. The post localization images demonstrate a lo calizing needle and wire in the 10:00 right breast. The biopsy marker clip is located adjacent to th e needle at the level of the heel of the biju. The localizing needle and wire in the right axilla ar e not included on the images. The surgical specimen radiograph was obtained in the 10:00 axis. There is a ribbon shaped clip, the localizing needle and wire and density within the tissue at the site of the lumpectomy. These findin gs are compatible with successful preoperative localization and subsequent surgical excision. The sp ecimen from the right axilla was not imaged. IMPRESSION: NEEDLE LOCALIZATION Status post successful preoperative localization in the right 10:00 breast and right axilla. A speci men radiograph was obtained in the 10:00 axis and this contains the biopsy marker clip. The patient will receive notification of the final pathology results from her referring physician. Evie Power M.D. ay/:01/01/2017 15:40:38 Recovery Advocate: Bridgette PEREIRA)([place]), [facility]
--- NOTE | 2017-01-02 08:18 | Anesthesiology Progress Note ---
Anesthesia Post Op Note Date & Time Jan 02, 2017 at 08:18 Vital Signs Pain Intensity: 4.0 Vital Signs Past 12 Hours Date Time Temp Pulse Resp B/P (MAP) Pulse Ox O2 Delivery O2 Flow Rate FiO2 01/02/17 07:39 36.6 74 17 108/74 (85) 92 Nasal Cannula 2.0 01/02/17 05:20 91 Nasal Cannula 2.0 01/02/17 05:15 84 Room Air 01/02/17 03:59 36.7 70 16 96/57 (70) 98 Nasal Cannula 4.0 01/01/17 23:35 Nasal Cannula 4.0 Humidified Oxygen 01/01/17 23:35 36.5 74 20 102/67 (79) 95 Nasal Cannula 4.0 Notes Mental Status: alert / awake / arousable, participated in evaluation Pt Amnestic to Procedure: Yes Nausea / Vomiting: adequately controlled Pain: adequately controlled Airway Patency, RR, SpO2: stable & adequate BP & HR: stable & adequate Hydration State: stable & adequate Anesthetic Complications: no major complications apparent
[2017-01-02] MEDS: FLUTICASONE/SALMETEROL 250/50 (ADVAIR) 14 PUFF/1 INHALER INH SCH (08:32)
[2017-01-02] MEDS ORDERED: MULTIVITAMIN TAB PO SCH (09:00)
[2017-01-02] MEDS ORDERED: PANTOprazole SOD 40 MG TAB PO SCH (09:00)
[2017-01-02] MEDS ORDERED: CITALOPRAM 40 MG TAB PO SCH (09:00)
[2017-01-02 09:05] VITALS: O2SAT 92
[2017-01-02 09:42] VITALS: BP 108/74; PULSE 74; TEMP 36.6; O2SAT 92
--- NOTE | 2017-01-02 11:57 | Hospitalist Progress Note ---
Hospitalist Progress Note Date of Service Jan 02, 2017. Subjective Pt evaluation today including: conversation w/ patient, physical exam, chart review, lab review, review of inpatient medication list Pain: Mild soreness at surgical site PO Intake: Tolerating PO diet Voiding: no voiding problems Patient reports feeling well. She does note a mild soreness/burning sensation in the right side of her chest at the incisions sites. She also notes a productive cough with thin, clear sputum, which she states is secondary to her post-nasal drip and is chronic. She is tolerating a PO diet well and urinating without any difficulties. She has not yet passed gas or had a bowel movement. The patient denies fevers, chills, sweats, chest pain, palpitations, claudication, wheezing, shortness of breath, nausea, vomiting, abdominal pain, dysuria, hematuria, urinary retention, paralysis, weakness, numbness and tingling. Additional Comments: See HPI for pertinent positives and negatives. All other systems reviewed and negative. Objective Vital Signs Date Time Temp Pulse Resp B/P (MAP) Pulse Ox O2 Delivery O2 Flow Rate FiO2 01/02/17 09:42 36.6 74 17 92 Room Air 01/02/17 09:05 92 Nasal Cannula 2.0 01/02/17 07:39 36.6 74 17 108/74 (85) 92 Nasal Cannula 2.0 01/02/17 05:20 91 Nasal Cannula 2.0 01/02/17 05:15 84 Room Air 01/02/17 03:59 36.7 70 16 96/57 (70) 98 Nasal Cannula 4.0 01/01/17 23:35 Nasal Cannula 4.0 Humidified Oxygen 01/01/17 23:35 36.5 74 20 102/67 (79) 95 Nasal Cannula 4.0 01/01/17 19:14 36.6 89 18 104/70 (81) 93 4.0 01/01/17 18:28 36.5 80 17 108/69 (82) 92 Nasal Cannula 4.0 01/01/17 17:05 36.5 84 16 96/65 (75) 92 Nasal Cannula 4.0 01/01/17 16:35 36.6 82 16 98/65 (76) 93 Nasal Cannula 4.0 01/01/17 16:22 92 Nasal Cannula 4.0 01/01/17 16:05 Nasal Cannula 4.0 01/01/17 16:05 36.6 81 18 103/66 (78) 92 Nasal Cannula 4.0 01/01/17 15:45 90 15 90/60 (74) 93 Nasal Cannula 4 01/01/17 15:30 89 16 93/62 (66) 93 Nasal Cannula 4 01/01/17 15:15 86 16 91/70 (77) 94 Nasal Cannula 4 01/01/17 15:00 91 15 95/74 (79) 92 Nasal Cannula 4 01/01/17 14:45 89 13 91/65 (76) 90 Nasal Cannula 4 01/01/17 14:35 91 16 95/67 (76) 94 Nasal Cannula 4 01/01/17 14:25 37.2 91 16 93/74 (80) 94 Nasal Cannula 4 01/01/17 14:15 89 16 102/63 (76) 96 Oxymask 6 01/01/17 14:05 89 16 101/64 (75) 97 Oxymask 8 01/01/17 13:55 92 17 105/56 (78) 99 Oxymask 10 01/01/17 13:47 36.6 97 14 96/63 (76) 98 Oxymask 10 Physical Exam Notes: General appearance: Well-developed, well-nourished, no apparent distress Head: Normocephalic, atraumatic Eyes: Normal inspection, PERRL, EOMI ENT: Normal ENT inspection, hearing grossly normal, pharynx normal Neck: Supple, no JVD, trachea midline Respiratory/Chest: +2 long incisions right lateral chest, c/d/i and small site for drain. Small amount of bloody drainage. Lungs clear to auscultation, normal breath sounds, no respiratory distress Cardiovascular: Regular rate & rhythm, no gallop, no murmur Abdomen/GI: Normal bowel sounds, non-tender, soft Extremities/Musculoskeletal: Normal inspection, no calf tenderness, no pedal edema Neurological/Psych: Alert, normal mood/affect, oriented x 3 Skin: Normal color, warm/dry, no rash Laboratory Results Last 24 Hours Test 01/02/17 05:46 White Blood Count 5.43 K/uL Red Blood Count 3.39 M/uL Hemoglobin 11.8 g/dL Hematocrit 35.1 % Mean Corpuscular Volume 103.5 fL Mean Corpuscular Hemoglobin 34.8 pg Mean Corpuscular Hemoglobin Concent 33.6 g/dl RDW Standard Deviation 44.0 fL RDW Coefficient of Variation 11.5 % Platelet Count 187 K/uL Mean Platelet Volume 8.0 fL Sodium Level 141 mmol/L Potassium Level 4.1 mmol/L Chloride Level 103 mmol/L Carbon Dioxide Level 31 mmol/L Anion Gap 7.0 mmol/L Blood Urea Nitrogen 7 mg/dl Creatinine 0.60 mg/dl Est Creatinine Clear Calc Drug Dose 82.5 ml/min Estimated GFR () 114.8 Estimated GFR (Non- 99.1 BUN/Creatinine Ratio 12.5 Random Glucose 102 mg/dl Calcium Level 8.9 mg/dl Assessment and Plan 61 y/o female with a history of small cell lung carcinoma stage IIIB originally diagnosed via biopsy on 05/22/2016 s/p chemo and radiation, invasive ductal carcinoma w/ mets to axilla diagnosed 03/23/2016 s/p chemo, alcohol abuse, anxiety, PTSD, and COPD who presents s/p right lumpectomy with Dr. Mercer on 01/01 for medical management. S/p right lumpectomy--stable. POD #1 - H/o Invasive ductal carcinoma with metastatic carcinoma to the axilla, stage IIIB - Originally diagnosed 03/23/2016 via mammogram and confirmed with ultrasound guided biopsy on 04/24/2016. ER, [place], & HER-2/maida negative with neoadjuvant chemotherapy with taxol and carboplatin. - Pain management, DVT prophylaxis, and PT/OT as per primary team - Bowel regimen in place with narcotics on board - Continue to monitor ALVARO drain - Follow with Dr. Parrish for chemotherapy as an outpatient. Pt scheduled for oncology f/u appt on 01/08 Small cell lung carcinoma, stage III B - Originally diagnosed via biopsy on 05/22/2016, s/p 6 cycles of taxotere and carboplatin completed on 10/02/16, XRT finished on 12/13/16. - O2 by protocol. Pt now stable on room air COPD - Continue Advair 1 puff inh BID and Combivent 1 puff inh q4h prn SOB/wheezing Alcohol abuse - Encourage cessation Anxiety/PTSD - Continue Celexa 40 mg PO qd DVT prophylaxis -Enoxaparin 40 mg SC q24h -MONO fong and TIMBOs Pt. is stable from a medical standpoint, we will sign off. Clear for discharge as per primary team.
[2017-02-09] MEDS ORDERED: THM100 PO (15:13)
[2017-02-09] MEDS ORDERED: AMOX875T PO (15:13)
[2017-02-09] MEDS ORDERED: PRED10TA PO (15:13)
[2017-02-09] MEDS ORDERED: HYDR-5688 PO (15:13)
[2017-02-09] MEDS ORDERED: LEVO1TAB35 PO (15:13)
[2017-02-09] MEDS ORDERED: FLV1 PO (15:13)
[2017-02-09] MEDS ORDERED: LACTCHW3 PO (15:13)
[2017-03-01] MEDS ORDERED: THIA100T11 PO (13:22)
[2017-03-05] MEDS ORDERED: PRD/1 PO (14:28)
[2017-03-19] MEDS ORDERED: DXM/4 PO (09:32)
== END 2017-01-02 11:30 | disposition home health service (06) | DRG 577 ==
LOC: C.ACU 07:46 → C.MSN 13:39 → ENRESERV 15:36
PROVIDERS: ADMIT Surgery; ATTEND Surgery
PROC: 0HBT0ZZ Excision of Right Breast, Open Approach (ICD-10-PCS; principal; 2017-01-01 10:45)
PROC: 0XB40ZZ Excision of Right Axilla, Open Approach (ICD-10-PCS; principal; 2017-01-01 10:45)
PROC: 07B50ZX Excision of Right Axillary Lymphatic, Open Approach, Diagnostic (ICD-10-PCS; principal; 2017-01-01 10:45)
DX: C50.911 Malignant neoplasm of unspecified site of right female breast (principal); C34.90 Malignant neoplasm of unspecified part of unspecified bronchus or lung; C79.89 Secondary malignant neoplasm of other specified sites; J44.9 Chronic obstructive pulmonary disease, unspecified; K70.10 Alcoholic hepatitis without ascites; K21.9 Gastro-esophageal reflux disease without esophagitis; M19.90 Unspecified osteoarthritis, unspecified site; F10.10 Alcohol abuse, uncomplicated; M79.7 Fibromyalgia; R09.82 Postnasal drip; F41.9 Anxiety disorder, unspecified; F32.9 Major depressive disorder, single episode, unspecified; F43.10 Post-traumatic stress disorder, unspecified; Z17.1 Estrogen receptor negative status [ER-]; Z99.81 Dependence on supplemental oxygen; Z87.891 Personal history of nicotine dependence; Z92.21 Personal history of antineoplastic chemotherapy; Z92.3 Personal history of irradiation; Z80.3 Family history of malignant neoplasm of breast; Z79.82 Long term (current) use of aspirin; Z79.51 Long term (current) use of inhaled steroids; Z79.899 Other long term (current) drug therapy

== ENCOUNTER 2017-02-05 20:45 | Inpatient (IN) | payer OTHER ==
[~2017-02-05] VITALS: Ht 160 cm; Wt 57.3 kg
[~2017-02-05 20:45] MED LIST changes: -CEFAZOLIN 2000 MG/60 ML D5W IV SCH; -LACTATED RINGER'S 1000ML 1,000 ML IV SCH; -PRLSR20 PO
[2017-02-05] MEDS ORDERED: VANCOMYCIN INJ 1,000 MG in SODIUM CHLORIDE 0.9% 250ML 250 ML IV STA (21:34)
[2017-02-05] MEDS ORDERED: PIPERACILL/TAZOBAC IV 4.5 GM in DEXTROSE 5% 100ML 100 ML IV STA (21:34)
[2017-02-05] MEDS ORDERED: SODIUM CHLORIDE 0.9% 1000ML 1,000 ML IV STA ×2 (21:34)
--- NOTE | 2017-02-05 21:37 | EMERGENCY ROOM VISIT NOTE ---
History Report prepared by Kasieibshasha: Meenakshi Tello Under the Supervision of: Dr. Clemente Mckinley M.D. First contact with patient: 21:17 Chief Complaint: FEVER Stated Complaint: FEVER, FATIGUE History of Present Illness The patient is a 61 year old white female with a past medical history of anxiety , alcohol abuse, COPD, small cell lung cancer, breast cancer, fibromyalgia and depression who presents to the ED with a cc of a fever beginning earlier today. Her temperature was 102 when she checked at home. Tylenol has provided minimal relief. Positive cough, chills, headache, body aches, fatigue. Negative urinary symptoms. The patient underwent a partial mastectomy and lumpectomy [address] Mercer and also had lymph nodes and cancer cells removed from her right breast this past week. She is scheduled to start radiation next week. The patient is a former smoker. She did receive a flu shot last year. Source of History: patient Onset: earlier today Position: other (global) Quality: other (fever) Timing: other (persistent) Associated Symptoms: + chills, + headache, + cough, No urinary symptoms Review of Systems See HPI for pertinent positives and negatives. A total of ten systems were reviewed and were otherwise negative. Past Medical & Surgical Medical Problems: (1) Acute anxiety (2) Alcohol abuse (3) Alcohol abuse (4) Alcohol abuse (5) Alcohol intoxication (6) Alcohol intoxication (7) Alcohol withdrawal (8) Alcoholism (9) Anxiety (10) Anxiety (11) COPD exacerbation (12) COPD exacerbation (13) Depression (14) Dizzy (15) Fall (16) Fibromyalgia (17) Head trauma (18) Hepatitis (19) Hypokalemia (20) Hyponatremia (21) Hypoxia (22) Malnourished (23) Nasal fracture (24) PTSD (post-traumatic stress disorder) (25) Right shoulder injury (26) Weakness Family History FH: cancer FH: heart disease Social History Smoking Status: Current Every Day Smoker Alcohol Use: heavy Drug Use: none Marital Status: single, Housing Status: lives alone Occupation Status: employed Current/Historical Medications Scheduled Aspirin (Aspirin Ec), 81 MG PO QPM Citalopram (Citalopram Hydrobromide), 40 MG PO QAM Multivitamin (Multivitamin), 1 TAB PO QAM Saline (Saline Nasal [place] ), 1-2 SPRY GISSELLE PRN Scheduled PRN Fluticasone Prop/Salmeterol (Advair Diskus 250/50 60 Dose), 1 PUFF INH BID PRN for SOB/Wheezing Fluticasone Propionate (Nasal) (Flonase Allergy Relief), 2 SPRAYS GISSELLE BID PRN for Nasal Congestion Ipratropium-Albuterol (Combivent Respimat), 1 PUFFS INH Q4 PRN for Shortness of Breath Allergies Coded Allergies: Vinegar (Verified Allergy, Severe, ANAPHYLAXIS, 02/05/17) Sulfa Antibiotics (Verified Allergy, Intermediate, HIVES,SWELLING,RASH, ) Latex (Verified Allergy, Mild, rash, 02/05/17) Adhesives (Verified Adverse Reaction, Mild, RASH IRRITATION, 02/05/17) Physical Exam Vital Signs Date Time Temp Pulse Resp B/P (MAP) Pulse Ox O2 Delivery O2 Flow Rate FiO2 02/06/17 01:20 90 Nasal Cannula 5.0 02/06/17 01:15 85 Nasal Cannula 2.0 02/06/17 00:25 Nasal Cannula 2.0 02/06/17 00:18 98 22 97/59 94 Nasal Cannula 2.0 02/05/17 23:02 102 24 92/63 92 Room Air 02/05/17 22:04 107 02/05/17 21:50 94 Nasal Cannula 2.0 02/05/17 21:45 88 Room Air 02/05/17 20:55 38.0 111 20 106/73 89 Room Air Physical Exam GENERAL: Awake, alert, well-appearing, NAD, on NC HENT: Normocephalic, atraumatic. EYES: Normal conjunctiva. Sclera non-icteric. NECK: Supple. No nuchal rigidity. FROM. RESPIRATORY: CTAB, no rhonchi, wheezing, crackles CARDIAC: RRR, no MRG ABDOMEN: Soft, NTND, BS+ MSK: No chest wall TTP, no LE edema NEURO: GCS 15, CN 2-12 intact, moves all 4s on command SKIN: No rash or jaundice noted. Area of induration over right lateral breast, measuring 4 cm by 4 cm, blanching erythema and calor, no fluctuance, multiple well healing incisions. Medical Decision & Procedures ER Provider Diagnostic Interpretation: Radiology results as stated below per my review and radiologist interpretation: CHEST ONE VIEW PORTABLE HISTORY: Evaluate Fever/Sepsis COMPARISON: Chest 12/26/2016. FINDINGS: Calcified mediastinal and hilar lymph nodes are again noted. Left subclavian Port-A-Cath terminates in the expected location of the distal SVC. This remains unchanged. The heart is normal in size. No pleural effusions. No pneumothorax. Old, healed right-sided rib fractures. No focal lung consolidations to suggest pneumonia. No evidence for pulmonary edema. The lungs demonstrate mild apical predominant emphysematous changes. IMPRESSION: No significant change compared to the prior study. No acute process. Electronically signed by: Natanael Rushing M.D. 02/05/2017 10:10 PM Radiology results as stated below per my review and radiologist interpretation: CHEST CT WITH CONTRAST CT DOSE: 294.71 mGy.cm HISTORY: recent R partial mastectomy, LN dissection, red, fluctuant chest wall. TECHNIQUE: Multiaxial CT images of the chest were performed following the intravenous administration of contrast. A dose lowering technique was utilized adhering to the principles of ALARA. COMPARISON: Chest CT 08/17/2016. FINDINGS: The central airways are patent. No pleural effusions. No pneumothorax. Patchy area of consolidation within the base of the left lower lobe has progressed. This measures over 4 cm. Mild emphysema. Stable 7 mm irregular density within the left lung apex. Stable linear scarlike densities within the left upper lobe anteriorly. No suspicious lytic or blastic osseous lesions. Subcentimeter mediastinal lymph nodes do not meet CT criteria for pathologic involvement. Multiple calcified bilateral hilar lymph nodes. The heart is normal in size. Skin and trabecular thickening within the right breast. There are few surgical clips within the lateral aspect of the right breast and a 2.7 x 2.9 cm fluid collection adjacent to the surgical clips. There is also a larger subcutaneous fluid collection within the right axilla which measures 7.2 x 5.2 cm. This demonstrates mild surrounding fat stranding. There are few mildly enlarged and partially necrotic right axillary lymph nodes. The largest axillary lymph node measures 1.9 x 1.3 cm. No left axillary lymphadenopathy. No evidence for dissection. The central pulmonary arteries are patent. Left subclavian Port-A-Cath terminates in the superior cavoatrial junction. Cholelithiasis. The liver, spleen, and adrenal glands are unremarkable. IMPRESSION: 1. A 7.2 x 5.2 cm fluid collection within the right axilla. This favors a postoperative seroma. However, there is surrounding fat stranding which raises the possibility of an infected fluid collection/abscess. There is no gas within this fluid collection at this time. 2. There is a smaller adjacent 2.9 x 2.7 cm fluid collection within the lateral right breast adjacent to a few surgical clips. This also favors a postoperative seroma. A second infected fluid collection cannot be excluded on the basis of CT imaging alone. 3. Mild skin thickening and trabecular thickening within the right breast which could be due to the recent postoperative change or a cellulitis. 4. Increase in size in the patchy air consolidation within the base of the left lower lobe. The appearance favors inflammatory/infectious process. However, one to [address] follow-up is recommended following a course of antibiotic therapy to ensure resolution. 5. A few mildly enlarged and partially necrotic right axillary lymph nodes. This could be reactive or due to metastatic disease. Electronically signed by: Natanael Rushing M.D. 02/05/2017 11:26 PM Laboratory Results 02/05/17 22:00 Red Blood Count 3.54, Mean Corpuscular Volume 100.6, Mean Corpuscular Hemoglobin 34.2, Mean Corpuscular Hemoglobin Concent 34.0, Mean Platelet Volume 8.3, Neutrophils (%) (Auto) 74.0, Lymphocytes (%) (Auto) 9.2, Monocytes (%) ( Auto) 15.4, Eosinophils (%) (Auto) 1.0, Basophils (%) (Auto) 0.1, Neutrophils # (Auto) 7.26, Lymphocytes # (Auto) 0.90, Monocytes # (Auto) 1.51, Eosinophils # ( Auto) 0.10, Basophils # (Auto) 0.01 02/05/17 22:00 Test 02/05/17 21:55 02/05/17 21:58 02/05/17 22:00 02/05/17 22:20 Influenza Type A Antigen Neg for Influ A (NEG) Influenza Type B Antigen Neg for Influ B (NEG) Venous Blood pH 7.46 (7.36-7.41) Venous Blood Partial Pressure CO2 40 mmHg (38.0-50.0) Venous Blood Partial Pressure O2 33 mmHg Venous Blood HCO3 28 mmol/L Venous Blood Oxygen Saturation 65.0 % Venous Blood Base Excess 3.6 mEq/L Lactic Acid Level 0.6 mmol/L (0.4-2.0) White Blood Count 9.81 K/uL (4.8-10.8) Red Blood Count 3.54 M/uL (4.2-5.4) Hemoglobin 12.1 g/dL (12.0-16.0) Hematocrit 35.6 % (37-47) Mean Corpuscular Volume 100.6 fL (80-100) Mean Corpuscular Hemoglobin 34.2 pg (25-34) Mean Corpuscular Hemoglobin Concent 34.0 g/dl (32-36) Platelet Count 255 K/uL (130-400) Mean Platelet Volume 8.3 fL (7.4-10.4) Neutrophils (%) (Auto) 74.0 % Lymphocytes (%) (Auto) 9.2 % Monocytes (%) (Auto) 15.4 % Eosinophils (%) (Auto) 1.0 % Basophils (%) (Auto) 0.1 % Neutrophils # (Auto) 7.26 K/uL (1.4-6.5) Lymphocytes # (Auto) 0.90 K/uL (1.2-3.4) Monocytes # (Auto) 1.51 K/uL (0.11-0.59) Eosinophils # (Auto) 0.10 K/uL (0-0.5) Basophils # (Auto) 0.01 K/uL (0-0.2) RDW Standard Deviation 45.5 fL (36.4-46.3) RDW Coefficient of Variation 12.4 % (11.5-14.5) Immature Granulocyte % (Auto) 0.3 % Immature Granulocyte # (Auto) 0.03 K/uL (0.00-0.02) Prothrombin Time 10.2 SECONDS (9.0-12.0) Prothromb Time International Ratio 1.0 (0.9-1.1) Activated Partial Thromboplast Time 37.2 SECONDS (21.0-31.0) Partial Thromboplastin Ratio 1.4 Anion Gap 7.0 mmol/L (3-11) Est Creatinine Clear Calc Drug Dose 73.8 ml/min Estimated GFR () 110.7 Estimated GFR (Non- 95.5 BUN/Creatinine Ratio 23.7 (10-20) Calcium Level 8.6 mg/dl (8.5-10.1) Total Bilirubin 0.4 mg/dl (0.2-1) Direct Bilirubin 0.1 mg/dl (0-0.2) Aspartate Amino Transf (AST/SGOT) 13 U/L (15-37) Alanine Aminotransferase (ALT/SGPT) 16 U/L (12-78) Alkaline Phosphatase 108 U/L (45-117) Total Protein 7.3 gm/dl (6.4-8.2) Albumin 3.3 gm/dl (3.4-5.0) Lipase 278 U/L (73-393) Urine Color YELLOW Urine Appearance CLEAR (CLEAR) Urine pH 8.5 (4.5-7.5) Urine Specific [place] 1.015 (1.000-1.030) Urine Protein NEG (NEG) Urine Glucose (UA) NEG (NEG) Urine Ketones NEG (NEG) Urine Occult Blood NEG (NEG) Urine Nitrite NEG (NEG) Urine Bilirubin NEG (NEG) Urine Urobilinogen NEG (NEG) Urine Leukocyte Esterase MODERATE (NEG) Urine WBC (Auto) 1-5 /hpf (0-5) Urine RBC (Auto) 0-4 /hpf (0-4) Urine Hyaline Casts (Auto) 0 /lpf (0-5) Urine Epithelial Cells (Auto) 10-20 /lpf (0-5) Urine Bacteria (Auto) NEG (NEG) Laboratory results reviewed by me Medications Administered Medications (Trade) Dose Ordered Sig/Gaudnecio Route Start Time Stop Time Status Last Admin Dose Admin Vancomycin HCl 1000 mg/Sodium Chloride 270 ml @ 125 mls/hr ONE STAT IV 02/05/17 21:34 02/05/17 23:43 DC 02/05/17 23:59 125 MLS/HR Sodium Chloride 1,000 ml @ 999 mls/hr Q1H1M STAT IV 02/05/17 21:34 02/05/17 22:34 DC 02/05/17 22:20 999 MLS/HR Sodium Chloride 1,000 ml @ 999 mls/hr Q1H1M STAT IV 02/05/17 21:34 02/05/17 22:34 DC 02/05/17 22:20 999 MLS/HR Piperacillin Sod/ Tazobactam Sod (Zosyn Iv) 4.5 gm STK-MED ONCE .ROUTE 02/05/17 21:55 02/05/17 21:56 DC 02/05/17 22:20 4.5 GM Metoclopramide HCl (Reglan Inj) 10 mg NOW STAT IV 02/05/17 22:20 02/05/17 22:21 DC 02/05/17 23:29 10 MG Diphenhydramine HCl (Benadryl Inj) 25 mg NOW STAT IV 02/05/17 22:20 02/05/17 22:21 DC 02/05/17 23:29 25 MG Azithromycin 500 mg/Dextrose 255 ml @ 125 mls/hr ONE ONCE IV 02/05/17 23:45 02/06/17 01:47 DC 02/06/17 00:16 125 MLS/HR ECG Indication: other (fever) Rate (beats per minute): 103 Rhythm: sinus tachycardia Findings: other (Right axis deviation. Normal intervals. No other STS changes or T-wave inversions.) ED Course 2120: The patient was evaluated in room C2. A complete history and physical exam was performed. 8: Nursing informed me the patient would like medication for pain. I will place orders. 2323: I discussed the patients case with Dr. Rushing, [facility] Radiology. Looking at the patients CT scan, there is likely an abscess in her right breast. 2327: I discussed the patients case with Dr. Bonilla, [facility] General Surgery. The patient will be further evaluated. 2351: I discussed the patients case with Dr. Phillips, [facility] Hospitalist. The patient will be further evaluated. 2355: I reevaluated the patient. She is resting comfortably. I discussed my recommendation she remain in the hospital for further evaluation and management and she verbalized complete understanding and agreement. Medical Decision The patient is a 61 year old white female with a past medical history of anxiety , alcohol abuse, COPD, small cell lung cancer, breast cancer, fibromyalgia and depression who presents to the ED with a cc of a fever beginning earlier today. Triage Nursing notes reviewed. The patient's presentation and history were concerning for pneumonia, breast abscess, cellulitis, UTI, URI and viral illness. Patient's exam concerning for possible abscess. Also h/o of COPD w/ mild hypoxia , satting 89% on RA. No gross wheezing on exam. Patient w/ blood work, abx, IVF , CXR and CT. Patient's WBC 9000. CXR neg acute. Patient given pain control and anti-pyretics. Patient had CT which showed two fluid collections. EGS was called. They recommended admit to medicine and they will see in AM. Radiology also stated they may be able to place a drain adn that fluid collections may be seroma but also possible infectious process. I spoke to medicine team, who agreed patient would benefit from additional trx and work up. CT also did show LLL consolidation concerning for PNA, and given recent hospitalization, azithro was also added to cover for HCAP. Medication Reconcilliation Current Medication List: was personally reviewed by me Blood Pressure Screening Patient's blood pressure: Normal blood pressure Blood pressure disposition: Did not require urgent referral Consults Time Called: [phone] Consulting Physician: Dr. Bonilla [facility] General Surgery Returned Call: [phone] I discussed the patients case with Dr. Bonilla [facility] General Surgery. The patient will be further evaluated. Additional Consults: Time Called: [phone] Consulted Physician: Dr. Phillips [facility] Hospitalist Returned Call: [phone] Additional Comments: I discussed the patients case with Dr. Phillips [facility] Hospitalist. The patient will be further evaluated. Impression Primary Impression: Breast abscess Additional Impressions: Cellulitis Pneumonia, community acquired Scribe Attestation The scribe's documentation has been prepared under my direction and personally reviewed by me in its entirety. I confirm that the note above accurately reflects all work, treatment, procedures, and medical decision making performed by me. Departure Information Dispostion Being Evaluated By Hospitalist Referrals Nadia Aldana M.D. (PCP) Patient Instructions My [facility] Problem Qualifiers Additional Impressions: Cellulitis Site of cellulitis: other site Qualified Codes: L03.818 - Cellulitis of other sites Pneumonia, community acquired Laterality: left Lung location: lower lobe of lung Qualified Codes: J18.1 - Lobar pneumonia, unspecified organism
[2017-02-05] MEDS ORDERED: OPTIRAY 320 IV PRN (21:45)
[2017-02-05] MEDS ORDERED: PIPERACILLIN/TAZOBACTAM 4.5 GM/100ML D5W ONE (21:55)
[2017-02-05 22:10] LABS: VEN BLOOD GAS BASE EXCESS 3.6 mEq/L
[2017-02-05 22:11] LABS: BASO % 0.1 %; BASO ABS # 0.01 K/uL (0-0.2); COMPLETE YES; HEMATOCRIT 35.6 % (37-47); IG% 0.3 %; LYMPH % 9.2 %; MEAN CELL VOLUME 100.6 fL (80-100); MEAN CORPUSCULAR HEMOGLOBIN 34.2 pg (25-34); MEAN PLATELET VOLUME 8.3 fL (7.4-10.4); MONO % 15.4 %; PLATELET COUNT 255 K/uL (130-400); RED BLOOD COUNT 3.54 M/uL (4.2-5.4); WHITE BLOOD COUNT 9.81 K/uL (4.8-10.8)
--- NOTE | 2017-02-05 22:11 | DIAGNOSTIC IMAGING REPORT ---
CHEST ONE VIEW PORTABLE HISTORY: Evaluate Fever/Sepsis COMPARISON: Chest 12/26/2016. FINDINGS: Calcified mediastinal and hilar lymph nodes are again noted. Left subclavian Port-A-Cath terminates in the expected location of the distal SVC. This remains unchanged. The heart is normal in size. No pleural effusions. No pneumothorax. Old, healed right-sided rib fractures. No focal lung consolidations to suggest pneumonia. No evidence for pulmonary edema. The lungs demonstrate mild apical predominant emphysematous changes. IMPRESSION: No significant change compared to the prior study. No acute process. Electronically signed by: Natanael Rushing M.D. 02/05/2017 10:10 PM Dictated Date/Time: 02/05/2017 10:08 PM
[2017-02-05] MEDS ORDERED: METOCLOPRAMIDE HCL INJ 5 MG/ML 2 ML VIAL IV STA (22:20)
[2017-02-05] MEDS ORDERED: DiphenhydrAMINE HCL 50 MG/ML VIAL IV STA (22:20)
[2017-02-05 22:21] LABS: PARTIAL THROMBOPLASTIN RATIO 1.4; PROTHROMBIN TIME (PATIENT) 10.2 SECONDS (9.0-12.0)
[2017-02-05 22:32] LABS: BUN/CREATININE RATIO 23.7 (10-20); CALCIUM 8.6 mg/dl (8.5-10.1); CREATININE 0.67 mg/dl (0.60-1.20)
[2017-02-05 22:39] LABS: MANUAL MICROSCOPIC REQUIRED? NO; REVIEW REQ? NO; URINE APPEARANCE CLEAR (CLEAR); URINE BILIRUBIN NEG (NEG); URINE COLOR YELLOW; URINE NITRITE NEG (NEG); URINE PH 8.5 (4.5-7.5); URINE SPECIFIC GRAVITY 1.015 (1.000-1.030); UROBILINOGEN NEG (NEG)
--- NOTE | 2017-02-05 23:27 | DIAGNOSTIC IMAGING REPORT ---
CHEST CT WITH CONTRAST CT DOSE: 294.71 mGy.cm HISTORY: recent R partial mastectomy, LN dissection, red, fluctuant chest wall. TECHNIQUE: Multiaxial CT images of the chest were performed following the intravenous administration of contrast. A dose lowering technique was utilized adhering to the principles of ALARA. COMPARISON: Chest CT 08/17/2016. FINDINGS: The central airways are patent. No pleural effusions. No pneumothorax. Patchy area of consolidation within the base of the left lower lobe has progressed. This measures over 4 cm. Mild emphysema. Stable 7 mm irregular density within the left lung apex. Stable linear scarlike densities within the left upper lobe anteriorly. No suspicious lytic or blastic osseous lesions. Subcentimeter mediastinal lymph nodes do not meet CT criteria for pathologic involvement. Multiple calcified bilateral hilar lymph nodes. The heart is normal in size. Skin and trabecular thickening within the right breast. There are few surgical clips within the lateral aspect of the right breast and a 2.7 x 2.9 cm fluid collection adjacent to the surgical clips. There is also a larger subcutaneous fluid collection within the right axilla which measures 7.2 x 5.2 cm. This demonstrates mild surrounding fat stranding. There are few mildly enlarged and partially necrotic right axillary lymph nodes. The largest axillary lymph node measures 1.9 x 1.3 cm. No left axillary lymphadenopathy. No evidence for dissection. The central pulmonary arteries are patent. Left subclavian Port-A-Cath terminates in the superior cavoatrial junction. Cholelithiasis. The liver, spleen, and adrenal glands are unremarkable. IMPRESSION: 1. A 7.2 x 5.2 cm fluid collection within the right axilla. This favors a postoperative seroma. However, there is surrounding fat stranding which raises the possibility of an infected fluid collection/abscess. There is no gas within this fluid collection at this time. 2. There is a smaller adjacent 2.9 x 2.7 cm fluid collection within the lateral right breast adjacent to a few surgical clips. This also favors a postoperative seroma. A second infected fluid collection cannot be excluded on the basis of CT imaging alone. 3. Mild skin thickening and trabecular thickening within the right breast which could be due to the recent postoperative change or a cellulitis. 4. Increase in size in the patchy air consolidation within the base of the left lower lobe. The appearance favors inflammatory/infectious process. However, one to [address] follow-up is recommended following a course of antibiotic therapy to ensure resolution. 5. A few mildly enlarged and partially necrotic right axillary lymph nodes. This could be reactive or due to metastatic disease. Electronically signed by: Natanael Rushing M.D. 02/05/2017 11:26 PM Dictated Date/Time: 02/05/2017 10:58 PM
[2017-02-05] MEDS ORDERED: AZITHROMYCIN IV 500 MG in DEXTROSE 5% 250ML 250 ML IV ONE (23:45)
[2017-02-06] VITALS (12 sets, daily range): BP systolic 76–94; BP diastolic 48–62; PULSE 78–94; TEMP 36.3–37.7; O2SAT 90–94; Ht 160 cm; Wt 57.3 kg
--- NOTE | 2017-02-06 01:31 | History and Physical ---
History & Physical Date & Time of Service: Feb 06, 2017 at 01:19 Chief Complaint: Fever, Fatigue Primary Care Physician: Nadia Aldana M.D. History of Present Illness Source: patient, family (niece) The patient presents to the ED complaining of one day of being achy, cold and having a fever of 102. She complains that her whole body has been very sore. Was also feeling slightly dizzy and unsteady on her feet. Feel some generalized weakness. No falls.Also has some generalized head pressure initially which is completely resolved at this time. She also has an incision site under her right axilla, from a previous lumpectomy with axillary node dissection which she notes has been feeling more swollen, tender and warm. She denies having any discharge from the site. She denies shortness of breath. She has been coughing, but has been per her baseline of COPD with no recent changes. Cough is non-productive. She denies wheezing. She denies any chest pain, palpitations, syncope or lower extremity swelling. She denies urinary symptoms or pain with urinating frequently. She denies abdominal pain, nausea or vomiting. She denies diarrhea or constipation. She has been following with Dr. Mercer for right-sided lumpectomy with axillary node dissection 3 weeks ago. Niece notes that she has had worsening swelling and drainage from the incision sites. She notes the incision sites are more tender than usual. She states that he is following along with her and drains it periodically in the office, via needle aspiration. She also had a port placed in September 2016. Currently has both breast and lung cancer (small cell). She is followed by Dr. Parrish. Currently, she is not having chemotherapy. She is starting her second round of radiation therapy this coming week. Past Medical/Surgical History Medical Problems: (1) Acute anxiety Status: Resolved (2) Alcohol abuse Status: Chronic (3) Alcohol abuse Status: Resolved (4) Alcohol abuse Status: Resolved (5) Alcohol intoxication Status: Resolved (6) Alcohol intoxication Status: Resolved (7) Alcohol withdrawal Status: Resolved (8) Alcoholism Status: Resolved (9) Anxiety Status: Chronic (10) Anxiety Status: Resolved (11) COPD exacerbation Status: Resolved (12) COPD exacerbation Status: Resolved (13) Depression Status: Chronic (14) Dizzy Status: Resolved (15) Fall Status: Resolved (16) Fibromyalgia Status: Chronic (17) Head trauma Status: Resolved (18) Hepatitis Status: Chronic (19) Hypokalemia Status: Resolved (20) Hyponatremia Status: Resolved (21) Hypoxia Status: Resolved (22) Malnourished Status: Chronic (23) Nasal fracture Status: Resolved (24) PTSD (post-traumatic stress disorder) Status: Chronic (25) Right shoulder injury Status: Resolved COPD Depression/Anxiety 2 x C-sections Hysterectomy Port-placement Family History FH: cancer FH: heart disease Social History Smoking Status: Former Smoker Smokeless Tobacco Use: No Alcohol Use: none Drug Use: none Marital Status: single, Housing status: lives alone (niece lives closeby; patient states she is independent at home.) Occupational Status: employed Immunizations History of Influenza Vaccine: Yes History of Tetanus Vaccine?: Yes History of Pneumococcal: Yes Pneumococcal Date: Jun 26, 2009 History of Hepatitis B Vaccine: No Multi-Drug Resistant Organisms History of MDRO: No Allergies Coded Allergies: Vinegar (Verified Allergy, Severe, ANAPHYLAXIS, 02/05/17) Sulfa Antibiotics (Verified Allergy, Intermediate, HIVES,SWELLING,RASH, ) Latex (Verified Allergy, Mild, rash, 02/05/17) Adhesives (Verified Adverse Reaction, Mild, RASH IRRITATION, 02/05/17) Home Medications Scheduled Aspirin (Aspirin Ec), 81 MG PO QPM Citalopram (Citalopram Hydrobromide), 40 MG PO QAM Multivitamin (Multivitamin), 1 TAB PO QAM Saline (Saline Nasal [place] ), 1-2 SPRY GISSELLE PRN Scheduled PRN Fluticasone Prop/Salmeterol (Advair Diskus 250/50 60 Dose), 1 PUFF INH BID PRN for SOB/Wheezing Fluticasone Propionate (Nasal) (Flonase Allergy Relief), 2 SPRAYS GISSELLE BID PRN for Nasal Congestion Ipratropium-Albuterol (Combivent Respimat), 1 PUFFS INH Q4 PRN for Shortness of Breath Review of Systems A 10 point review of systems was negative unless stated above. Physical Exam Vital Signs Date Time Temp Pulse Resp B/P (MAP) Pulse Ox O2 Delivery O2 Flow Rate FiO2 02/06/17 00:25 Nasal Cannula 2.0 02/06/17 00:18 98 22 97/59 94 Nasal Cannula 2.0 02/05/17 23:02 102 24 92/63 92 Room Air 02/05/17 22:04 107 02/05/17 20:55 38.0 111 20 106/73 89 Room Air General Appearance: WD/WN, no apparent distress Head: normocephalic, atraumatic Eyes: normal inspection, EOMI ENT: hearing grossly normal, pharynx normal Neck: supple, no adenopathy, no JVD Respiratory/Chest: + pertinent finding (bilatearl end-expiratory wheezing; fluctuant collection beneath right axilla with intact healed incision; no purulence, tender and warm to touch) Cardiovascular: regular rate, rhythm, no gallop, no murmur Abdomen/GI: normal bowel sounds, non tender, soft Back: no CVA tenderness, no muscle spasm Extremities/Musculoskelatal: no calf tenderness, no pedal edema Neurologic/Psych: alert, normal mood/affect, oriented x 3 Skin: normal color, warm/dry, no rash Lymphatic: no adenopathy Diagnostics Laboratory Results Results Past 24 Hours Test 02/05/17 21:55 02/05/17 21:58 02/05/17 22:00 02/05/17 22:20 Range/Units Influenza Type A Antigen Neg for Influ A NEG Influenza Type B Antigen Neg for Influ B NEG Venous Blood pH 7.46 7.36-7.41 Venous Blood Partial Pressure CO2 40 38.0-50.0 mmHg Venous Blood Partial Pressure O2 33 mmHg Venous Blood HCO3 28 mmol/L Venous Blood Oxygen Saturation 65.0 % Venous Blood Base Excess 3.6 mEq/L Lactic Acid Level 0.6 0.4-2.0 mmol/L White Blood Count 9.81 4.8-10.8 K/uL Red Blood Count 3.54 4.2-5.4 M/uL Hemoglobin 12.1 12.0-16.0 g/dL Hematocrit 35.6 37-47 % Mean Corpuscular Volume 100.6 80-100 fL Mean Corpuscular Hemoglobin 34.2 25-34 pg Mean Corpuscular Hemoglobin Concent 34.0 32-36 g/dl Platelet Count 255 130-400 K/uL Mean Platelet Volume 8.3 7.4-10.4 fL Neutrophils (%) (Auto) 74.0 % Lymphocytes (%) (Auto) 9.2 % Monocytes (%) (Auto) 15.4 % Eosinophils (%) (Auto) 1.0 % Basophils (%) (Auto) 0.1 % Neutrophils # (Auto) 7.26 1.4-6.5 K/uL Lymphocytes # (Auto) 0.90 1.2-3.4 K/uL Monocytes # (Auto) 1.51 0.11-0.59 K/uL Eosinophils # (Auto) 0.10 0-0.5 K/uL Basophils # (Auto) 0.01 0-0.2 K/uL RDW Standard Deviation 45.5 36.4-46.3 fL RDW Coefficient of Variation 12.4 11.5-14.5 % Immature Granulocyte % (Auto) 0.3 % Immature Granulocyte # (Auto) 0.03 0.00-0.02 K/uL Prothrombin Time 10.2 9.0-12.0 SECONDS Prothromb Time International Ratio 1.0 0.9-1.1 Activated Partial Thromboplast Time 37.2 21.0-31.0 SECONDS Partial Thromboplastin Ratio 1.4 Sodium Level 133 136-145 mmol/L Potassium Level 4.0 3.5-5.1 mmol/L Chloride Level 98 98-107 mmol/L Carbon Dioxide Level 28 21-32 mmol/L Anion Gap 7.0 3-11 mmol/L Blood Urea Nitrogen 16 7-18 mg/dl Creatinine 0.67 0.60-1.20 mg/dl Est Creatinine Clear Calc Drug Dose 73.8 ml/min Estimated GFR () 110.7 Estimated GFR (Non- 95.5 BUN/Creatinine Ratio 23.7 10-20 Random Glucose 93 70-99 mg/dl Calcium Level 8.6 8.5-10.1 mg/dl Total Bilirubin 0.4 0.2-1 mg/dl Direct Bilirubin 0.1 0-0.2 mg/dl Aspartate Amino Transf (AST/SGOT) 13 15-37 U/L Alanine Aminotransferase (ALT/SGPT) 16 12-78 U/L Alkaline Phosphatase 108 45-117 U/L Total Protein 7.3 6.4-8.2 gm/dl Albumin 3.3 3.4-5.0 gm/dl Lipase 278 73-393 U/L Urine Color YELLOW Urine Appearance CLEAR CLEAR Urine pH 8.5 4.5-7.5 Urine Specific [place] 1.015 1.000-1.030 Urine Protein NEG NEG Urine Glucose (UA) NEG NEG Urine Ketones NEG NEG Urine Occult Blood NEG NEG Urine Nitrite NEG NEG Urine Bilirubin NEG NEG Urine Urobilinogen NEG NEG Urine Leukocyte Esterase MODERATE NEG Urine WBC (Auto) 1-5 0-5 /hpf Urine RBC (Auto) 0-4 0-4 /hpf Urine Hyaline Casts (Auto) 0 0-5 /lpf Urine Epithelial Cells (Auto) 10-20 0-5 /lpf Urine Bacteria (Auto) NEG NEG Microbiology Results 02/05/17 Blood Culture, Received Pending 02/05/17 Blood Culture, Received Pending 02/05/17 Urine Culture, Received Pending Diagnostic Radiology [~ rep ct add3]] CHEST CT WITH CONTRAST CT DOSE: 294.71 mGy.cm HISTORY: recent R partial mastectomy, LN dissection, red, fluctuant chest wall. TECHNIQUE: Multiaxial CT images of the chest were performed following the intravenous administration of contrast. A dose lowering technique was utilized adhering to the principles of ALARA. COMPARISON: Chest CT 08/17/2016. FINDINGS: The central airways are patent. No pleural effusions. No pneumothorax. Patchy area of consolidation within the base of the left lower lobe has progressed. This measures over 4 cm. Mild emphysema. Stable 7 mm irregular density within the left lung apex. Stable linear scarlike densities within the left upper lobe anteriorly. No suspicious lytic or blastic osseous lesions. Subcentimeter mediastinal lymph nodes do not meet CT criteria for pathologic involvement. Multiple calcified bilateral hilar lymph nodes. The heart is normal in size. Skin and trabecular thickening within the right breast. There are few surgical clips within the lateral aspect of the right breast and a 2.7 x 2.9 cm fluid collection adjacent to the surgical clips. There is also a larger subcutaneous fluid collection within the right axilla which measures 7.2 x 5.2 cm. This demonstrates mild surrounding fat stranding. There are few mildly enlarged and partially necrotic right axillary lymph nodes. The largest axillary lymph node measures 1.9 x 1.3 cm. No left axillary lymphadenopathy. No evidence for dissection. The central pulmonary arteries are patent. Left subclavian Port-A-Cath terminates in the superior cavoatrial junction. Cholelithiasis. The liver, spleen, and adrenal glands are unremarkable. IMPRESSION: 1. A 7.2 x 5.2 cm fluid collection within the right axilla. This favors a postoperative seroma. However, there is surrounding fat stranding which raises the possibility of an infected fluid collection/abscess. There is no gas within this fluid collection at this time. 2. There is a smaller adjacent 2.9 x 2.7 cm fluid collection within the lateral right breast adjacent to a few surgical clips. This also favors a postoperative seroma. A second infected fluid collection cannot be excluded on the basis of CT imaging alone. 3. Mild skin thickening and trabecular thickening within the right breast which could be due to the recent postoperative change or a cellulitis. 4. Increase in size in the patchy air consolidation within the base of the left lower lobe. The appearance favors inflammatory/infectious process. However, one to [address] follow-up is recommended following a course of antibiotic therapy to ensure resolution. 5. A few mildly enlarged and partially necrotic right axillary lymph nodes. This could be reactive or due to metastatic disease. Electronically signed by: Natanael Rushing M.D. 02/05/2017 11:26 PM Dictated Date/Time: 02/05/2017 10:58 PM The status of this report is Signed. Draft = Not yet reviewed or approved by Radiologist. Signed = Reviewed and approved by Radiologist. CHEST ONE VIEW PORTABLE HISTORY: Evaluate Fever/Sepsis COMPARISON: Chest 12/26/2016. FINDINGS: Calcified mediastinal and hilar lymph nodes are again noted. Left subclavian Port-A-Cath terminates in the expected location of the distal SVC. This remains unchanged. The heart is normal in size. No pleural effusions. No pneumothorax. Old, healed right-sided rib fractures. No focal lung consolidations to suggest pneumonia. No evidence for pulmonary edema. The lungs demonstrate mild apical predominant emphysematous changes. IMPRESSION: No significant change compared to the prior study. No acute process. Electronically signed by: Natanael Rushing M.D. 02/05/2017 10:10 PM Dictated Date/Time: 02/05/2017 10:08 PM Impression Assessment and Plan 61-year-old female, with non-small cell lung cancer and history of breast cancer with lumpectomy and node dissection. She denies the ED, meeting criteria for SIRS (systemic tachycardia and tachypnea). This also meets criteria for sepsis as there are multiple possible sources for infection including a left-sided pneumonia, a right axillary incisional site cellulitis, or urinary tract infection. In addition to this, she has acute respiratory failure as noted by the new hypoxia that she has on admission. Our plan for her is as follows: Sepsis - Multifactorial etiologies, left PNA, UTI, and right axillary cellulitis - IV vancomycin and Zosyn - Blood cultures pending - UA positive for leukocyte esterase, without nitrites; Urine cultures pending - The patient was fortunately not hypotensive on arrival and first lactate was normal Acute Respiratory Failure - 2/2 PNA vs COPD exacerbation - COPD: Solu-Medrol 125 mg IV now ; DuoNeb q4h Gaudencio and q2h PRN for SOB - Pneumonia: IV antibiotics as above Chronic COPD - Continue Advair - Patient on DuoNebs. Can be transitioned back over to Combivent as she improves Right Breast/Axillary Seroma vs Cellulitis - IV antibiotics as above - We will consult general surgery to evaluate the patient History of Lung and Breast Ca - Due for radiotherapy in 2 days; recommend day team communicate with radiation oncology to determine if this needs to be delayed while being acutely treated Depression - Continue Citalopram DVT Prophylaxis - SCD - MONO - Lovenox Code Status - Level I Disposition - Telemetry - OT/PT evaluations ordered Attending Addendum: I have physically seen and examined this patient, have supervised the medical residents activities, and agree with the H&P as noted above with the following exceptions as noted. The patient presents to the ED with complaints of being generally achy and sore , slightly dizzy and off-balance. She has generalized weakness. She has tenderness, swelling and warmth to the right axillary lymph node lumpectomy with axillary node dissection site and a temperature of 102F. The patient denies chest pain, palpitations, shortness of breath, lower extremity swelling, vision change, hearing change, sore throat, nausea, vomiting , abdominal pain, pelvic pain, blood in urine or stool, dysuria, urinary frequency or urgency, memory loss, rash, abnormal bruising or bleeding, imbalance, focal weakness, numbness or tingling in arms or legs, back or neck pain, night sweats, or allergy symptoms. The review of systems is otherwise negative other than for that already noted above, and at least 10 systems have been reviewed. The patient is awake, well-developed and adequately nourished, alert and oriented 3, normocephalic and atraumatic, lying in bed and in no acute distress. HEENT--PERRL, EOMI, mucous membranes and oropharynx dry. Neck--supple, no JVD or bruits, thyroid normal, trachea midline, no adenopathy. Heart--normal S1 and S2, no extra beats, no murmurs, rubs or gallops. Lungs--wheezes bilaterally, no respiratory distress, no accessory muscle use. Abdomen--normal bowel sounds and soft, nontender and nondistended, no hernias or masses, no organomegaly. Extremities--no cyanosis, clubbing or edema. There are good distal pulses b/l. Dermatologic--right axilla with fluctuant fluid collection, intact incision. Tender and warm to touch. Neurologic--cranial nerves II through XII grossly intact, motor and sensory examination normal. Rheumatologic--normal range of motion, nontender, muscles and joints. Psychiatric--normal affect. Assessment and Plan: 1. Sepsis/pneumonia/UTI/right axillary cellulitis-- Place on vancomycin IV and Zosyn IV. Follow blood and urine culture and sensitivity reports. Solu-Medrol 125 mg IV now and then 60 mg IV every 6 hours. Duonebs every 4 hours while awake and every 2 hours when necessary. Level of Care Telemetry Advanced Directives Existing Advance Directive: No Existing Living Will: No Existing Power of Elementary Principal: No Resuscitation Status FULL RESUSCITATION VTE Prophylaxis Risk Level: Moderate Given or contraindicated: Enoxaparin (Lovenox)SQ Social Service Consult Cancer Patient Under [place]
[2017-02-06] MEDS ORDERED: ONDANSETRON INJ 2 MG/ML 2 ML VIAL IV PRN ×2 (02:00→12:45)
[2017-02-06] MEDS ORDERED: IPRATROPIUM BROMIDE/ALBUTEROL respimat INH INH PRN (02:00)
[2017-02-06] MEDS ORDERED: SODIUM CHLORIDE 0.65% NA SOLN 45 ML (OCEAN) NAE PRN (02:00)
[2017-02-06] MEDS ORDERED: ACETAMINOPHEN 325 MG TAB PO PRN (02:00)
[2017-02-06] MEDS ORDERED: MAGNESIUM HYDROXIDE SUSP 30 ML UDC PO PRN (02:00)
[2017-02-06] MEDS ORDERED: POLYETHYLENE (MIRALAX) 17 GM PACK PO PRN (02:00)
[2017-02-06] MEDS ORDERED: FLUTICASONE/SALMETEROL 250/50 (ADVAIR) 14 PUFF/1 INHALER INH PRN (02:00)
[2017-02-06] MEDS ORDERED: ALUMINUM/MAGNESIUM/SIMETH (MAALOX MAX) 30 ML UDC PO PRN (02:00)
[2017-02-06] MEDS ORDERED: FLUTICASONE PROPIONATE NA SPR 16 GM BTL NAE PRN (02:00)
[2017-02-06] MEDS ORDERED: VANCOMYCIN CONSULT ACTIVE PRN (02:30)
[2017-02-06] MEDS ORDERED: PIPERACILL/TAZOBAC CONSULT ACTIVE PRN (02:45)
[2017-02-06] MEDS: NSS + 20MEQ KCL 1000ML 1,000 ML IV SCH ×3 (03:14→21:09)
[2017-02-06] MEDS: PIPERACILL/TAZOBAC IV 3.375 GM in DEXTROSE 5% 100ML 100 ML IV SCH ×3 (03:14→19:56)
[2017-02-06 06:02] LABS: BASO % 0.1 %; BASO ABS # 0.01 K/uL (0-0.2); COMPLETE YES; EOS % 0.6 %; HEMATOCRIT 31.7 % (37-47); IG% 0.1 %; LYMPH % 8.9 %; LYMPH ABS # 0.73 K/uL (1.2-3.4); MEAN CELL VOLUME 99.7 fL (80-100); MEAN CORPUSCULAR HEMOGLOBIN 34.6 pg (25-34); MEAN CORPUSCULAR HGB CONC 34.7 g/dl (32-36); MEAN PLATELET VOLUME 7.8 fL (7.4-10.4); MONO % 17.8 %; NEUT % 72.5 %; PLATELET COUNT 205 K/uL (130-400); RED BLOOD COUNT 3.18 M/uL (4.2-5.4); WHITE BLOOD COUNT 8.22 K/uL (4.8-10.8)
[2017-02-06 06:48] LABS: BUN/CREATININE RATIO 12.2 (10-20); CREATININE 0.69 mg/dl (0.60-1.20); POTASSIUM 3.6 mmol/L (3.5-5.1)
--- NOTE | 2017-02-06 07:00 | Medical Consult ---
Consultation Date of Consultation: Feb 06, 2017. Attending Physician: Bhanu Phillips M.D. Reason for Consultation: Rt axillary seroma History of Present Illness 61 y/o female w/ h/o Rt breast ca w/ met dz and also Lung Ca adm w/ fever. Has recurrent seroma Rt axilla- 01/01/17- Rt partial mastectomy w/ excision Rt axillary mass . Aspiration seroma Rt axilla 01/26 and with recurrence w/n 4 days- pt now with fever Past Medical/Surgical History Medical Problems: (1) Acute alcohol intoxication Status: Acute (2) Alcohol abuse Status: Chronic (3) Alteration in self-care ability Status: Acute (4) Anxiety Status: Chronic (5) Breast abscess Status: Acute (6) Cellulitis Status: Acute (7) Closed head injury Status: Acute (8) Depression Status: Chronic (9) Facial abrasion Status: Acute (10) Facial contusion Status: Acute (11) Fibromyalgia Status: Chronic (12) Generalized weakness Status: Acute (13) Hepatitis Status: Chronic (14) Hyponatremia Status: Acute (15) Malnourished Status: Chronic (16) Pneumonia, community acquired Status: Acute (17) PTSD (post-traumatic stress disorder) Status: Chronic Family History FH: cancer FH: heart disease Social History Smoking Status: Former Smoker Smokeless Tobacco Use: No Alcohol Use: none Drug Use: none Marital Status: single, Housing Status: lives alone Occupation Status: employed Allergies Coded Allergies: Vinegar (Verified Allergy, Severe, ANAPHYLAXIS, 02/05/17) Sulfa Antibiotics (Verified Allergy, Intermediate, HIVES,SWELLING,RASH, ) Latex (Verified Allergy, Mild, rash, 02/05/17) Adhesives (Verified Adverse Reaction, Mild, RASH IRRITATION, 02/05/17) Current Inpatient Medications Current Inpatient Medications Medications (Trade) Dose Ordered Sig/Gaudencio Route Start Time Stop Time Status Last Admin Dose Admin Ioversol (Optiray 320) 100 ml UD PRN IV 02/05/17 21:45 02/09/17 21:44 Enoxaparin Sodium (Lovenox Inj) 40 mg Q24H SC 02/06/17 09:00 03/08/17 08:59 Acetaminophen (Tylenol Tab) 650 mg Q4H PRN PO 02/06/17 02:00 03/08/17 01:59 Al Hydrox/Mg Hydrox/Simethicone (Maalox Max Susp) 15 ml Q4H PRN PO 02/06/17 02:00 03/08/17 01:59 Magnesium Hydroxide (Milk Of Magnesia Susp) 30 ml Q12H PRN PO 02/06/17 02:00 03/08/17 01:59 Ondansetron HCl (Zofran Inj) 4 mg Q6H PRN IV 02/06/17 02:00 03/08/17 01:59 Polyethylene (Miralax Powder Packet) 17 gm DAILY PRN PO 02/06/17 02:00 03/08/17 01:59 Vancomycin HCl 750 mg/Sodium Chloride 265 ml @ 125 mls/hr Q12H IV 02/06/17 10:00 02/13/17 09:59 Piperacillin Sod/ Tazobactam Sod 3.375 gm/Dextrose 115 ml @ 28.75 mls/ hr Q8H IV 02/06/17 04:00 02/13/17 03:59 02/06/17 03:14 28.75 MLS/HR Aspirin (Ecotrin Tab) 81 mg QPM PO 02/06/17 21:00 03/08/17 20:59 Citalopram Hydrobromide (celeXA TAB) 40 mg QAM PO 02/06/17 09:00 03/08/17 08:59 Salmeterol Xinafoate/ Fluticasone (Advair Diskus 250/50 Inh) 1 puff BID PRN INH 02/06/17 02:00 03/08/17 01:59 Fluticasone Propionate (Flonase Nasal Gaylord) 2 sprays BID PRN GISSELLE 02/06/17 02:00 03/08/17 01:59 Albuterol/ Ipratropium (Combivent Respimat Inh) 1 puffs Q4 PRN INH 02/06/17 02:00 03/08/17 01:59 Multivitamins (Multivitamin Tab) 1 tab QAM PO 02/06/17 09:00 03/08/17 08:59 Sodium Chloride ([place] Nasal Gaylord) 1 sprays PRN PRN GISSELLE 02/06/17 02:00 03/08/17 01:59 Albuterol/ Ipratropium (Duoneb) 3 ml QIDR INH 02/06/17 08:00 03/08/17 07:59 Potassium Chloride/Sodium Chloride 1,000 ml @ 125 mls/hr Q8H IV 02/06/17 03:00 03/08/17 02:59 02/06/17 03:14 125 MLS/HR Vancomycin HCl (Consult) 1 ea UD PRN N/A 02/06/17 02:30 03/08/17 02:29 Piperacillin Sod/ Tazobactam Sod (Consult) 1 ea UD PRN N/A 02/06/17 02:45 03/08/17 02:44 Review of Systems Constitutional: + fever, + chills Respiratory: + cough, + sputum Cardiovascular: No chest pain Abdomen: No nausea, No vomiting Genitourinary - Female: No dysuria Neurologic: + weakness Integumentary: No rash Physical Exam Date Time Temp Pulse Resp B/P (MAP) Pulse Ox O2 Delivery O2 Flow Rate FiO2 02/06/17 06:00 37.7 02/06/17 04:00 37.2 86 21 94/60 (71) 93 Nasal Cannula 5.0 Humidified Oxygen 02/06/17 02:18 90 24 93/53 93 02/06/17 02:01 37.7 90 24 93/53 93 Nasal Cannula 5.0 02/06/17 01:20 90 Nasal Cannula 5.0 02/06/17 01:15 85 Nasal Cannula 2.0 02/06/17 00:25 Nasal Cannula 2.0 02/06/17 00:18 98 22 97/59 94 Nasal Cannula 2.0 02/05/17 23:02 102 24 92/63 92 Room Air 02/05/17 22:04 107 02/05/17 21:50 94 Nasal Cannula 2.0 02/05/17 21:45 88 Room Air 02/05/17 20:55 38.0 111 20 106/73 89 Room Air General Appearance: no apparent distress Neck: supple Respiratory/Chest: + crackles, + rales Cardiovascular: regular rate, rhythm Extremities/Musculoskelatal: + pertinent finding (pt has mass Rt axilla- recurrent seroma, mild erythema) Laboratory Results Last 24 Hours Test 02/05/17 21:55 02/05/17 21:58 02/05/17 22:00 02/05/17 22:20 Influenza Type A Antigen Neg for Influ A Influenza Type B Antigen Neg for Influ B Venous Blood pH 7.46 Venous Blood Partial Pressure CO2 40 mmHg Venous Blood Partial Pressure O2 33 mmHg Venous Blood HCO3 28 mmol/L Venous Blood Oxygen Saturation 65.0 % Venous Blood Base Excess 3.6 mEq/L Lactic Acid Level 0.6 mmol/L White Blood Count 9.81 K/uL Red Blood Count 3.54 M/uL Hemoglobin 12.1 g/dL Hematocrit 35.6 % Mean Corpuscular Volume 100.6 fL Mean Corpuscular Hemoglobin 34.2 pg Mean Corpuscular Hemoglobin Concent 34.0 g/dl Platelet Count 255 K/uL Mean Platelet Volume 8.3 fL Neutrophils (%) (Auto) 74.0 % Lymphocytes (%) (Auto) 9.2 % Monocytes (%) (Auto) 15.4 % Eosinophils (%) (Auto) 1.0 % Basophils (%) (Auto) 0.1 % Neutrophils # (Auto) 7.26 K/uL Lymphocytes # (Auto) 0.90 K/uL Monocytes # (Auto) 1.51 K/uL Eosinophils # (Auto) 0.10 K/uL Basophils # (Auto) 0.01 K/uL RDW Standard Deviation 45.5 fL RDW Coefficient of Variation 12.4 % Immature Granulocyte % (Auto) 0.3 % Immature Granulocyte # (Auto) 0.03 K/uL Prothrombin Time 10.2 SECONDS Prothromb Time International Ratio 1.0 Activated Partial Thromboplast Time 37.2 SECONDS Partial Thromboplastin Ratio 1.4 Sodium Level 133 mmol/L Potassium Level 4.0 mmol/L Chloride Level 98 mmol/L Carbon Dioxide Level 28 mmol/L Anion Gap 7.0 mmol/L Blood Urea Nitrogen 16 mg/dl Creatinine 0.67 mg/dl Est Creatinine Clear Calc Drug Dose 73.8 ml/min Estimated GFR () 110.7 Estimated GFR (Non- 95.5 BUN/Creatinine Ratio 23.7 Random Glucose 93 mg/dl Calcium Level 8.6 mg/dl Total Bilirubin 0.4 mg/dl Direct Bilirubin 0.1 mg/dl Aspartate Amino Transf (AST/SGOT) 13 U/L Alanine Aminotransferase (ALT/SGPT) 16 U/L Alkaline Phosphatase 108 U/L Total Protein 7.3 gm/dl Albumin 3.3 gm/dl Lipase 278 U/L Urine Color YELLOW Urine Appearance CLEAR Urine pH 8.5 Urine Specific Maud 1.015 Urine Protein NEG Urine Glucose (UA) NEG Urine Ketones NEG Urine Occult Blood NEG Urine Nitrite NEG Urine Bilirubin NEG Urine Urobilinogen NEG Urine Leukocyte Esterase MODERATE Urine WBC (Auto) 1-5 /hpf Urine RBC (Auto) 0-4 /hpf Urine Hyaline Casts (Auto) 0 /lpf Urine Epithelial Cells (Auto) 10-20 /lpf Urine Bacteria (Auto) NEG Test 02/06/17 05:46 White Blood Count 8.22 K/uL Red Blood Count 3.18 M/uL Hemoglobin 11.0 g/dL Hematocrit 31.7 % Mean Corpuscular Volume 99.7 fL Mean Corpuscular Hemoglobin 34.6 pg Mean Corpuscular Hemoglobin Concent 34.7 g/dl Platelet Count 205 K/uL Mean Platelet Volume 7.8 fL Neutrophils (%) (Auto) 72.5 % Lymphocytes (%) (Auto) 8.9 % Monocytes (%) (Auto) 17.8 % Eosinophils (%) (Auto) 0.6 % Basophils (%) (Auto) 0.1 % Neutrophils # (Auto) 5.96 K/uL Lymphocytes # (Auto) 0.73 K/uL Monocytes # (Auto) 1.46 K/uL Eosinophils # (Auto) 0.05 K/uL Basophils # (Auto) 0.01 K/uL RDW Standard Deviation 45.4 fL RDW Coefficient of Variation 12.5 % Immature Granulocyte % (Auto) 0.1 % Immature Granulocyte # (Auto) 0.01 K/uL Sodium Level 137 mmol/L Potassium Level 3.6 mmol/L Chloride Level 105 mmol/L Carbon Dioxide Level 26 mmol/L Anion Gap 6.0 mmol/L Blood Urea Nitrogen 8 mg/dl Creatinine 0.69 mg/dl Est Creatinine Clear Calc Drug Dose 71.7 ml/min Estimated GFR () 109.7 Estimated GFR (Non- 94.6 BUN/Creatinine Ratio 12.2 Random Glucose 103 mg/dl Calcium Level 8.0 mg/dl Assessment & Plan 02/06/17- Recurrent Rt axillary seroma- possible infection- favor OR incision and drainage- culture, possible wound vac. Cont atbx pending culture results Ask for wound clinic/nurse followup there is no evidence of cancer w/n the Rt axilla- drainage and seroma is lymphatic drainage causing a lymphocele most likely could also have pneumonia- findings on CT and productive cough
[2017-02-06] MEDS ORDERED: METHYLPREDNISOLONE IV 125 MG in SYRINGE 0 ML IV ONE (07:15)
--- NOTE | 2017-02-06 07:26 | SURGICAL CONSULTATION ---
DATE OF CONSULTATION: 02/06/2017 NOTICE TO RECEIVING [employer]EN [employer]Y/AGENCY This information is strictly Confidential and protected under [place] law. [place] law prohibits you from making any further disclosure of this information unless further disclosure is expressly permitted by the written consent of the person to whom it pertains or is authorized by law. A general authorization for the release of medical or other information is not sufficient for this purpose. Hospital accepts no responsibility if the information is made available to any other person, INCLUDING THE PATIENT. Seen on 02/06/2017 at 5:15 in the morning. SUMMARY: This is a 61-year-old female who I was called by Dr. Mckinley yesterday from the ER where he was concerned that she might have an axillary abscess accounting for her 24-hour history of a temperature of 102 that started just today. She denies any general malaise. She does have a cough which is persistent. She also is complaining of headaches and body aches and fatigue; no urinary symptoms. The patient had a history of Dr. Mercer doing a right breast lumpectomy with needle localization and right sentinel node biopsy on 01/01/2017, in fact the patient has been seen regularly in the office and she had a seroma that has been aspirated and was recently aspirated approximately 5 days ago and she is due back to see Dr. Mercer in the office on to do further aspiration if need be. The path report on that lumpectomy specimen showed infiltrating ductal carcinoma. She had 8 matted nodes which were mildly ER negative and mildly positive [place]. PAST MEDICAL HISTORY: Her past medical history included that she had a history of lung cancer that has been treated with radiation; last radiation was in the remote past. She is scheduled to have radiation next week for axilla. She has anxiety disorder, alcohol abuse, COPD, fibromyalgia. FAMILY HISTORY: Positive for cancer and heart disease. She is single and . MEDICATIONS: Her present medicine include aspirin and multivitamin. ALLERGIES: SHE HAS AN ALLERGY TO VINEGAR, SULFA ANTIBIOTICS, LATEX AND ADHESIVE. PHYSICAL EXAMINATION: GENERAL: As I see her this morning the patient is resting comfortably. She is having no distress. VITAL SIGNS: Her last vitals showed a temperature of 37.2, pulse 90, respirations 24, blood pressure 93/53. This was per nurse's report. She is alert, coherent and as stated in no distress. She is resting comfortably. HEAD: The head shows the effects of radiation and chemotherapy with hair loss. NECK: There is no cervical lymphadenopathy. RIGHT AXILLA: The right axillary area showed a well-healed incision from previous surgery. There is minimal erythema. There is no evidence of any tissue necrosis. The patient is not having any pain, but you can appreciate easily the fluid collection, the seroma that has persisted. HEART AND LUNGS: Unremarkable. ABDOMEN: Negative. EXTREMITIES: Grossly normal. LABORATORY: Her white count on admission showed it to be 9.81. She does have a slight left shift. Her BUN was 16, creatinine 0.67. Hemoglobin is 12.1. Lactic acid on admission was 0.6. The imaging showed by CAT scan of the chest two collections at 1.7 x 2 x 5.2 and another 2.9 x 2.7. There is some fat stranding, but there is no evidence of any gas in the area. She also has increase in size a patchy area of consolidation within the base of the left lower lobe. The appearance favors an inflammatory infectious process. At this point I will discuss the situation with Dr. Mercer since he has seen her and is scheduled to see her in the office soon. The seroma in the axilla I will leave this treatment to Dr. Mercer, but certainly I think an aspiration would be indicated with some cultures, although I doubt this is the reason why she is having the present febrile illness. This was discussed with the patient. We will keep her n.p.o. and make further recommendations later today.
[2017-02-06] MEDS: ALBUT/IPRATROP 3MG/0.5MG NEB 3 ML VIAL INH SCH ×4 (07:32→19:55)
[2017-02-06] MEDS ORDERED: SODIUM CHLORIDE 0.9% 1000ML 1,000 ML IV ONE (08:15)
[2017-02-06] MEDS: ENOXAPARIN 40 MG/0.4 ML SYR SC SCH (09:52)
[2017-02-06] MEDS: VANCOMYCIN INJ 750 MG in SODIUM CHLORIDE 0.9% 250ML 250 ML IV SCH (09:52)
[2017-02-06] MEDS: MULTIVITAMIN TAB PO SCH (09:52)
[2017-02-06] MEDS: CITALOPRAM 40 MG TAB PO SCH (09:52)
--- NOTE | 2017-02-06 10:58 | Pharmacy Progress Note ---
Pharmacy Abx Initial Consult Date of Service Feb 06, 2017. Pharmacy Dosing Scope Date of Consult: 02/05/17 Consultation requested by: Dr. Pollock Pharmacy is consulted to initiate Zosyn + Vancomycin IV therapy, order appropriate labs and adjust drug dose/frequency. Subjective The patient is a 61 year old female admitted on Feb 06, 2017 at 01:49 for fever , achiness, dizziness, chills and cough. She had also c/o increased pain, warmth and drainage from R axillary incision site. Patient felt to be septic with possible sources: skin/skin structure (axillary cellulitis) vs pulmonary vs urinary. Empiric broad spectrum abx therapy ordered. Objective Height (Feet): 5 Height (Inches): 3.00 Weight (Kilograms): 59.800 Vital Signs (Past 12Hrs) Vital Signs Past 12 Hours Date Time Temp Pulse Resp B/P (MAP) Pulse Ox O2 Delivery O2 Flow Rate FiO2 02/06/17 07:43 37.6 91 20 91/62 (72) 94 Nasal Cannula 5.0 02/06/17 07:32 90 16 93 Nasal Cannula 5.0 02/06/17 06:00 37.7 02/06/17 04:00 37.2 86 21 94/60 (71) 93 Nasal Cannula 5.0 Humidified Oxygen 02/06/17 02:18 90 24 93/53 93 02/06/17 02:01 37.7 90 24 93/53 93 Nasal Cannula 5.0 02/06/17 01:20 90 Nasal Cannula 5.0 02/06/17 01:15 85 Nasal Cannula 2.0 02/06/17 00:25 Nasal Cannula 2.0 02/06/17 00:18 98 22 97/59 94 Nasal Cannula 2.0 02/05/17 23:02 102 24 92/63 92 Room Air Lab Results (24Hrs) Laboratory Tests (24 Hours) Test 02/05/17 21:58 02/06/17 05:46 Lactic Acid Level 0.6 mmol/L (0.4-2.0) White Blood Count 8.22 K/uL (4.8-10.8) Red Blood Count 3.18 M/uL (4.2-5.4) L Hemoglobin 11.0 g/dL (12.0-16.0) L Hematocrit 31.7 % (37-47) L Mean Corpuscular Volume 99.7 fL (80-100) Mean Corpuscular Hemoglobin 34.6 pg (25-34) H Mean Corpuscular Hemoglobin Concent 34.7 g/dl (32-36) Platelet Count 205 K/uL (130-400) Mean Platelet Volume 7.8 fL (7.4-10.4) Neutrophils (%) (Auto) 72.5 % Lymphocytes (%) (Auto) 8.9 % Monocytes (%) (Auto) 17.8 % Eosinophils (%) (Auto) 0.6 % Basophils (%) (Auto) 0.1 % Neutrophils # (Auto) 5.96 K/uL (1.4-6.5) Lymphocytes # (Auto) 0.73 K/uL (1.2-3.4) L Monocytes # (Auto) 1.46 K/uL (0.11-0.59) H Eosinophils # (Auto) 0.05 K/uL (0-0.5) Basophils # (Auto) 0.01 K/uL (0-0.2) Procalcitonin < 0.05 ng/ml (0-0.5) Micro Results Date/Time Source Procedure Growth Status 02/05/17 22:10 Blood Blood Culture Pending Received 02/05/17 22:00 Blood Blood Culture Pending Received 02/05/17 22:20 Urine , Clean Catch Urine Culture Pending Received Risk Factors for Resistance * Antimicrobial use within the last 90 days:: given Keflex 01/02/17 Assessment & Plan Assessment * Patient admitted for sepsis, possibly from axillary incision site vs pulm vs urine * UA was not suggest of infxn: clear, only 1-5 WBC and no bacteria * Blood Cx's still pending * CT chest: fluid collection noted in R axilla suggestive of post-op seroma and possible infected fluid collection. Also increased air consolidation in L lower lobe - possible inflammatory/infectious process * VS are stable, mildly hypotensive (SBP 90's, DBP's 50-60's; unsure of patient' s baseline), HR in 80-90's thus far today; currently requiring 5L NC to maintain sats low 90's Plan Vancomycin IV * Initiated by shift engineer pharmacist: * Loading dose: 1000 mg (15.8 mg/kg) x 1 given in ER * Maintenance dose: 750 mg IV (12.5 mg/kg) every 12 hours * Goal trough level for sepsis : 15 to 20 mcg/mL * Trough level ordered for 02/07/17 Piperacillin/tazobactam * 4.5 g bolus administered over 30 minutes, then 3.375 g IV extended infusion every 8 hours for CrCl greater than 20 mL/min * BMI 23.4 Pharmacy will continue to follow and will adjust dose/frequency as necessary. Thank you.
[2017-02-06] MEDS ORDERED: MIDAZOLAM HCL 1 MG/ML 2ML VIAL ONE (11:14)
[2017-02-06] MEDS ORDERED: FENTANYL CITRATE INJ 50 MCG/1 ML 2 ML VIAL ONE (11:14)
[2017-02-06] MEDS ORDERED: ONDANSETRON INJ 2 MG/ML 2 ML VIAL ONE (11:19)
[2017-02-06] MEDS ORDERED: PROPOFOL IV EMULSION 10 MG/ML 20 ML VIAL IV ONE (11:19)
[2017-02-06] MEDS ORDERED: LIDOCAINE HCL 2% 2 ML VIAL (20MG/ML) ONE (11:19)
[2017-02-06] MEDS ORDERED: BUPIVACAINE 0.5 % 5 MG/1 ML MPF 30ML VIAL ONE (11:53)
[2017-02-06] MEDS ORDERED: BACITRACIN 50000 UNIT VIAL ONE (11:54)
[2017-02-06] MEDS ORDERED: EpHEDrine SULFATE 50MG/5ML SYR ONE (12:20)
--- NOTE | 2017-02-06 12:37 | [facility] Operative Report ---
Operative Report Operative Date Feb 06, 2017. Pre-Operative Diagnosis Rt axillary seroma Post-Operative Diagnosis same Procedure(s) Performed incision/ drainage Rt axillary seroma Surgeon Mercer Findings clear, light yellow serous fluid skin with erythema/ cellulitis Specimens fluid Drains packed open Anesthesia gen./LMA Complication(s) None Disposition Recovery Room / PACU I attest to the content of the Intraoperative Record and any orders documented therein. Any exceptions are noted below.
[2017-02-06] MEDS ORDERED: MoRPHine SULFATE 4 MG/ML 1 ML CARP\\VIAL IV PRN (12:45)
[2017-02-06] MEDS ORDERED: PROMETHAZINE HCL INJ 12.5 MG in SODIUM CHLORIDE 0.9% 50ML 50 ML IV PRN (12:45)
[2017-02-06] MEDS ORDERED: FLUMAZENIL 0.1 MG/1 ML 10 ML VIAL IV PRN (12:45)
[2017-02-06] MEDS ORDERED: LABETALOL HCL IV 5 MG/ML 20ML IV PRN (12:45)
[2017-02-06] MEDS ORDERED: NALOXONE HCL 0.4 MG/1 ML VIAL/CARP IV PRN (12:45)
[2017-02-06] MEDS ORDERED: FENTANYL CITRATE INJ 50 MCG/1 ML 2 ML VIAL IV PRN (12:45)
[2017-02-06] MEDS ORDERED: ATROPINE SULFATE 0.1 MG/ML 5ML SYR IV PRN (12:45)
[2017-02-06] MEDS ORDERED: EpHEDrine SULFATE INJ 50 MG/ML AMP IV PRN (12:45)
[2017-02-06] MEDS ORDERED: HYDROmorphone INJ 1 MG/ML SYR IV PRN (12:45)
[2017-02-06] MEDS ORDERED: MoRPHine SULFATE 2 MG/ML CARP IV PRN (12:45)
--- NOTE | 2017-02-06 13:46 | OPERATIVE REPORT ---
DATE OF OPERATION: 02/06/2017 PREOPERATIVE DIAGNOSIS: Recurrent right axillary seroma. POSTOPERATIVE DIAGNOSIS: Same. NAME OF OPERATION: Incision and drainage of right axillary seroma with culture. STAFF SURGEON: Dr. Mercer. ANESTHESIA: General LMA. PROCEDURE: The patient was brought in the operating room and placed on the operating table in supine position. Her right arm was extended on an arm board. Her right axilla was prepped and draped in usual fashion. Using an 18 gauge needle and syringe, I was able to aspirate what appeared to be clear light yellow fluid from the seroma which was then sent for culture. At this point, the old incision was opened using a scalpel and Bovie and encountering serous fluid which was aspirated. The site was then irrigated and then a Betadine gauze packing lightly placed into the wound and covered with dry gauze. The patient did have some mild erythema surrounding the incision which appeared to be cellulitis. The fluid did not appear to be infected; however cultures are pending. I attest to the content of the Intraoperative Record and any orders documented therein. Any exception s are noted below.
--- NOTE | 2017-02-06 14:04 | Anesthesiology Progress Note ---
Anesthesia Post Op Note Date & Time Feb 06, 2017 at 14:04 Vital Signs Pain Intensity: 0 Vital Signs Past 12 Hours Date Time Temp Pulse Resp B/P (MAP) Pulse Ox O2 Delivery O2 Flow Rate FiO2 02/06/17 13:40 88 20 83/50 93 Nasal Cannula 4 02/06/17 13:30 87 15 80/51 92 Nasal Cannula 4 02/06/17 13:20 88 23 79/51 93 Nasal Cannula 4 02/06/17 13:10 85 20 89/52 95 Nasal Cannula 4 02/06/17 13:00 85 16 89/51 95 Oxymask 10 02/06/17 12:50 85 14 87/59 98 Oxymask 10 02/06/17 12:40 36.2 80 13 91/57 97 Oxymask 10 02/06/17 12:00 94 Nasal Cannula 5.0 02/06/17 11:34 94 Nasal Cannula 5.0 02/06/17 11:34 36.8 81 20 88/52 (64) 92 Nasal Cannula 5 02/06/17 07:43 37.6 91 20 91/62 (72) 94 Nasal Cannula 5.0 02/06/17 07:32 90 16 93 Nasal Cannula 5.0 02/06/17 06:00 37.7 02/06/17 04:00 37.2 86 21 94/60 (71) 93 Nasal Cannula 5.0 Humidified Oxygen 02/06/17 02:18 90 24 93/53 93 Notes Mental Status: alert / awake / arousable, participated in evaluation Pt Amnestic to Procedure: Yes Nausea / Vomiting: adequately controlled Pain: adequately controlled Airway Patency, RR, SpO2: stable & adequate BP & HR: stable & adequate Hydration State: stable & adequate Anesthetic Complications: no major complications apparent
[2017-02-06] MEDS ORDERED: LORAZEPAM 1 MG TAB PO PRN (19:45)
--- NOTE | 2017-02-06 19:50 | Progress Note ---
Subjective Date of Service: Feb 06, 2017. Subjective Pt evaluation today including: conversation w/ patient, physical exam, chart review, lab review, review of studies (CT chest), review of inpatient medication list Pain: denies pain (in fact, right axillary pain is improved s/p I & D) PO Intake: just returned from OR - was NPO Voiding: no voiding problems tele stable overnight denies any significant dyspnea mild cough but no worse than normal appetite had been poor last few days confirms her "blood pressure is always low" records from previous hospital stay show average systolic BP was in the 90s Problem List Medical Problems: (1) Acute alcohol intoxication Status: Acute (2) Alcohol abuse Status: Chronic (3) Alteration in self-care ability Status: Acute (4) Anxiety Status: Chronic (5) Breast abscess Status: Acute (6) Cellulitis Status: Acute (7) Closed head injury Status: Acute (8) Depression Status: Chronic (9) Facial abrasion Status: Acute (10) Facial contusion Status: Acute (11) Fibromyalgia Status: Chronic (12) Generalized weakness Status: Acute (13) Hepatitis Status: Chronic (14) Hyponatremia Status: Acute (15) Malnourished Status: Chronic (16) Pneumonia, community acquired Status: Acute (17) PTSD (post-traumatic stress disorder) Status: Chronic Review of Systems Constitutional: No fever, No chills (had had chills now resolved ) Respiratory: + cough Cardiac: No chest pain, No orthopnea Abdomen: No pain Objective Vital Signs Date Time Temp Pulse Resp B/P (MAP) Pulse Ox O2 Delivery O2 Flow Rate FiO2 02/06/17 16:00 94 Nasal Cannula 4.0 02/06/17 15:48 36.6 94 22 84/56 (65) 90 Nasal Cannula 4.0 02/06/17 15:21 86 16 94 Nasal Cannula 4.0 02/06/17 14:31 79 16 89/58 (68) 93 Nasal Cannula 4.0 Humidified Oxygen 02/06/17 14:26 36.3 86 16 76/48 (57) 91 Nasal Cannula 4.0 02/06/17 14:10 36.2 82 16 98/58 91 Nasal Cannula 4 02/06/17 14:00 82 14 89/55 89 Nasal Cannula 4 02/06/17 13:50 82 16 97/56 91 Nasal Cannula 4 02/06/17 13:40 88 20 83/50 93 Nasal Cannula 4 02/06/17 13:30 87 15 80/51 92 Nasal Cannula 4 02/06/17 13:20 88 23 79/51 93 Nasal Cannula 4 02/06/17 13:10 85 20 89/52 95 Nasal Cannula 4 02/06/17 13:00 85 16 89/51 95 Oxymask 10 02/06/17 12:50 85 14 87/59 98 Oxymask 10 02/06/17 12:40 36.2 80 13 91/57 97 Oxymask 10 02/06/17 12:00 94 Nasal Cannula 5.0 02/06/17 11:34 94 Nasal Cannula 5.0 02/06/17 11:34 36.8 81 20 88/52 (64) 92 Nasal Cannula 5 02/06/17 07:43 37.6 91 20 91/62 (72) 94 Nasal Cannula 5.0 02/06/17 07:32 90 16 93 Nasal Cannula 5.0 02/06/17 06:00 37.7 02/06/17 04:00 37.2 86 21 94/60 (71) 93 Nasal Cannula 5.0 Humidified Oxygen 02/06/17 02:18 90 24 93/53 93 02/06/17 02:01 37.7 90 24 93/53 93 Nasal Cannula 5.0 02/06/17 01:20 90 Nasal Cannula 5.0 02/06/17 01:15 85 Nasal Cannula 2.0 02/06/17 00:25 Nasal Cannula 2.0 02/06/17 00:18 98 22 97/59 94 Nasal Cannula 2.0 02/05/17 23:02 102 24 92/63 92 Room Air 02/05/17 22:04 107 02/05/17 21:50 94 Nasal Cannula 2.0 02/05/17 21:45 88 Room Air 02/05/17 20:55 38.0 111 20 106/73 89 Room Air Physical Exam General Appearance: no apparent distress, + thin ENT: pharynx normal Neck: no JVD Respiratory/Chest: no respiratory distress, no accessory muscle use, + decreased breath sounds (left base, with rales and scattered wheezes) Cardiovascular: regular rate, rhythm, no gallop, no murmur Abdomen: normal bowel sounds, non tender, soft, no organomegaly Extremities: no pedal edema Neurologic/Psychiatric: alert, oriented x 3, + pertinent finding (mild tremor noted) Skin: + pertinent finding (large dressing in place right axillae) Laboratory Results Last 24 Hours Test 02/05/17 21:55 02/05/17 21:58 02/05/17 22:00 02/05/17 22:20 Influenza Type A Antigen Neg for Influ A Influenza Type B Antigen Neg for Influ B Venous Blood pH 7.46 Venous Blood Partial Pressure CO2 40 mmHg Venous Blood Partial Pressure O2 33 mmHg Venous Blood HCO3 28 mmol/L Venous Blood Oxygen Saturation 65.0 % Venous Blood Base Excess 3.6 mEq/L Lactic Acid Level 0.6 mmol/L White Blood Count 9.81 K/uL Red Blood Count 3.54 M/uL Hemoglobin 12.1 g/dL Hematocrit 35.6 % Mean Corpuscular Volume 100.6 fL Mean Corpuscular Hemoglobin 34.2 pg Mean Corpuscular Hemoglobin Concent 34.0 g/dl Platelet Count 255 K/uL Mean Platelet Volume 8.3 fL Neutrophils (%) (Auto) 74.0 % Lymphocytes (%) (Auto) 9.2 % Monocytes (%) (Auto) 15.4 % Eosinophils (%) (Auto) 1.0 % Basophils (%) (Auto) 0.1 % Neutrophils # (Auto) 7.26 K/uL Lymphocytes # (Auto) 0.90 K/uL Monocytes # (Auto) 1.51 K/uL Eosinophils # (Auto) 0.10 K/uL Basophils # (Auto) 0.01 K/uL RDW Standard Deviation 45.5 fL RDW Coefficient of Variation 12.4 % Immature Granulocyte % (Auto) 0.3 % Immature Granulocyte # (Auto) 0.03 K/uL Prothrombin Time 10.2 SECONDS Prothromb Time International Ratio 1.0 Activated Partial Thromboplast Time 37.2 SECONDS Partial Thromboplastin Ratio 1.4 Sodium Level 133 mmol/L Potassium Level 4.0 mmol/L Chloride Level 98 mmol/L Carbon Dioxide Level 28 mmol/L Anion Gap 7.0 mmol/L Blood Urea Nitrogen 16 mg/dl Creatinine 0.67 mg/dl Est Creatinine Clear Calc Drug Dose 73.8 ml/min Estimated GFR () 110.7 Estimated GFR (Non- 95.5 BUN/Creatinine Ratio 23.7 Random Glucose 93 mg/dl Calcium Level 8.6 mg/dl Total Bilirubin 0.4 mg/dl Direct Bilirubin 0.1 mg/dl Aspartate Amino Transf (AST/SGOT) 13 U/L Alanine Aminotransferase (ALT/SGPT) 16 U/L Alkaline Phosphatase 108 U/L Total Protein 7.3 gm/dl Albumin 3.3 gm/dl Lipase 278 U/L Urine Color YELLOW Urine Appearance CLEAR Urine pH 8.5 Urine Specific [place] 1.015 Urine Protein NEG Urine Glucose (UA) NEG Urine Ketones NEG Urine Occult Blood NEG Urine Nitrite NEG Urine Bilirubin NEG Urine Urobilinogen NEG Urine Leukocyte Esterase MODERATE Urine WBC (Auto) 1-5 /hpf Urine RBC (Auto) 0-4 /hpf Urine Hyaline Casts (Auto) 0 /lpf Urine Epithelial Cells (Auto) 10-20 /lpf Urine Bacteria (Auto) NEG Test 02/06/17 05:46 White Blood Count 8.22 K/uL Red Blood Count 3.18 M/uL Hemoglobin 11.0 g/dL Hematocrit 31.7 % Mean Corpuscular Volume 99.7 fL Mean Corpuscular Hemoglobin 34.6 pg Mean Corpuscular Hemoglobin Concent 34.7 g/dl Platelet Count 205 K/uL Mean Platelet Volume 7.8 fL Neutrophils (%) (Auto) 72.5 % Lymphocytes (%) (Auto) 8.9 % Monocytes (%) (Auto) 17.8 % Eosinophils (%) (Auto) 0.6 % Basophils (%) (Auto) 0.1 % Neutrophils # (Auto) 5.96 K/uL Lymphocytes # (Auto) 0.73 K/uL Monocytes # (Auto) 1.46 K/uL Eosinophils # (Auto) 0.05 K/uL Basophils # (Auto) 0.01 K/uL RDW Standard Deviation 45.4 fL RDW Coefficient of Variation 12.5 % Immature Granulocyte % (Auto) 0.1 % Immature Granulocyte # (Auto) 0.01 K/uL Sodium Level 137 mmol/L Potassium Level 3.6 mmol/L Chloride Level 105 mmol/L Carbon Dioxide Level 26 mmol/L Anion Gap 6.0 mmol/L Blood Urea Nitrogen 8 mg/dl Creatinine 0.69 mg/dl Est Creatinine Clear Calc Drug Dose 71.7 ml/min Estimated GFR () 109.7 Estimated GFR (Non- 94.6 BUN/Creatinine Ratio 12.2 Random Glucose 103 mg/dl Calcium Level 8.0 mg/dl Procalcitonin < 0.05 ng/ml Assessment and Plan 61yo female: 1. acute hypoxic respiratory failure - 2nd to COPD exacerbation + LLL pneumonia. Cont O2, incentive yaw, abx, and steroids along with nebs. 2. COPD exacerbation - nebs, o2, pulmonary toilet, abx, and IV steroids - leave steroids as is today. 3. LLL pneumonia - cover for hospital acquired given hospital stay within <90 days. Cont vanco + zosyn. 4. sepsis 2nd to #3 and #5 - ongoing. 5. low-normal BP - gave additional fluid bolus this am; cont maintenance fluids. Despite low-normal BP making good urine. She tends to run in the 90s systolic even when well and she denied any dizziness during the encounter today. 6. right axillary seroma vs abscess - s/p I & D today by Dr. Mercer - appreciate his assistance. await culture continue IV abx 7. h/o alcohol abuse - early etoh withdrawal?? thiamine/folic acid/MVI start etoh withdrawal protocol make ativan available continue tele status check mag level in am 8. DVT proph - lovenox 9. h/o lung cancer and breast cancer - noted 10. hyponatremia - resolved PT, OT when able Continued [facility] stay due to: inadequate po fluid intake, multiple IV medications needed Discharge planning: uncertain
[2017-02-06] MEDS: ASPIRIN 81 MG ECTAB PO SCH (20:37)
[2017-02-06] MEDS: THIAMINE HCL 100 MG TAB PO SCH (20:43)
[2017-02-06] MEDS: FLUTICASONE/SALMETEROL 250/50 (ADVAIR) 14 PUFF/1 INHALER INH SCH (20:44)
[2017-02-07] VITALS (11 sets, daily range): BP systolic 89–116; BP diastolic 55–72; PULSE 66–88; TEMP 36.6–36.8; O2SAT 93–98
[2017-02-07] MEDS: VANCOMYCIN INJ 750 MG in SODIUM CHLORIDE 0.9% 250ML 250 ML IV SCH ×3 (00:21→17:56)
[2017-02-07] MEDS: HYDROCODONE/ACETAMOPHEN 5/325MG TAB PO PRN ×4 (00:26→22:12)
[2017-02-07] MEDS: PIPERACILL/TAZOBAC IV 3.375 GM in DEXTROSE 5% 100ML 100 ML IV SCH ×3 (04:44→21:02)
[2017-02-07] MEDS: NSS + 20MEQ KCL 1000ML 1,000 ML IV SCH (04:44)
[2017-02-07 05:07] LABS: HEMATOCRIT 28.9 % (37-47); MEAN CELL VOLUME 102.8 fL (80-100); MEAN CORPUSCULAR HEMOGLOBIN 33.5 pg (25-34); MEAN CORPUSCULAR HGB CONC 32.5 g/dl (32-36); MEAN PLATELET VOLUME 8.2 fL (7.4-10.4); PLATELET COUNT 202 K/uL (130-400); RED BLOOD COUNT 2.81 M/uL (4.2-5.4); WHITE BLOOD COUNT 9.49 K/uL (4.8-10.8)
[2017-02-07 05:42] LABS: BUN/CREATININE RATIO 13.4 (10-20); CALCIUM 7.8 mg/dl (8.5-10.1); CREATININE 0.48 mg/dl (0.60-1.20); MAGNESIUM 1.8 mg/dl (1.8-2.4); POTASSIUM 4.1 mmol/L (3.5-5.1)
--- NOTE | 2017-02-07 06:36 | Surgery Progress Note ---
Surgery Progress Note Date of Service Feb 07, 2017. Subjective clinically doing much better w/ IV atbx and fluid expected drainage from axilla cult pending Objective Vital Signs: Date Time Temp Pulse Resp B/P (MAP) Pulse Ox O2 Delivery O2 Flow Rate FiO2 02/07/17 04:00 36.7 88 22 89/55 (66) 95 Nasal Cannula 5.0 02/07/17 04:00 Nasal Cannula 5.0 02/07/17 00:04 Nasal Cannula 5.0 02/07/17 00:00 36.7 76 20 92/60 (71) 94 Nasal Cannula 5.0 02/06/17 20:00 Nasal Cannula 5.0 02/06/17 19:56 78 16 91 Nasal Cannula 5.0 02/06/17 16:00 94 Nasal Cannula 4.0 02/06/17 15:48 36.6 94 22 84/56 (65) 90 Nasal Cannula 4.0 02/06/17 15:21 86 16 94 Nasal Cannula 4.0 02/06/17 14:31 79 16 89/58 (68) 93 Nasal Cannula 4.0 Humidified Oxygen 02/06/17 14:26 36.3 86 16 76/48 (57) 91 Nasal Cannula 4.0 02/06/17 14:10 36.2 82 16 98/58 91 Nasal Cannula 4 02/06/17 14:00 82 14 89/55 89 Nasal Cannula 4 02/06/17 13:50 82 16 97/56 91 Nasal Cannula 4 02/06/17 13:40 88 20 83/50 93 Nasal Cannula 4 02/06/17 13:30 87 15 80/51 92 Nasal Cannula 4 02/06/17 13:20 88 23 79/51 93 Nasal Cannula 4 02/06/17 13:10 85 20 89/52 95 Nasal Cannula 4 02/06/17 13:00 85 16 89/51 95 Oxymask 10 02/06/17 12:50 85 14 87/59 98 Oxymask 10 02/06/17 12:40 36.2 80 13 91/57 97 Oxymask 10 02/06/17 12:00 94 Nasal Cannula 5.0 02/06/17 11:34 94 Nasal Cannula 5.0 02/06/17 11:34 36.8 81 20 88/52 (64) 92 Nasal Cannula 5 02/06/17 07:43 37.6 91 20 91/62 (72) 94 Nasal Cannula 5.0 02/06/17 07:32 90 16 93 Nasal Cannula 5.0 Incision(s): intact, drainage Laboratory Results: Results Past 24 Hours Test 02/07/17 04:16 Range/Units White Blood Count 9.49 4.8-10.8 K/uL Red Blood Count 2.81 4.2-5.4 M/uL Hemoglobin 9.4 12.0-16.0 g/dL Hematocrit 28.9 37-47 % Mean Corpuscular Volume 102.8 80-100 fL Mean Corpuscular Hemoglobin 33.5 25-34 pg Mean Corpuscular Hemoglobin Concent 32.5 32-36 g/dl RDW Standard Deviation 46.4 36.4-46.3 fL RDW Coefficient of Variation 12.4 11.5-14.5 % Platelet Count 202 130-400 K/uL Mean Platelet Volume 8.2 7.4-10.4 fL Sodium Level 138 136-145 mmol/L Potassium Level 4.1 3.5-5.1 mmol/L Chloride Level 109 98-107 mmol/L Carbon Dioxide Level 26 21-32 mmol/L Anion Gap 3.0 3-11 mmol/L Blood Urea Nitrogen 6 7-18 mg/dl Creatinine 0.48 0.60-1.20 mg/dl Est Creatinine Clear Calc Drug Dose 103.1 ml/min Estimated GFR () 123.6 Estimated GFR (Non- 106.6 BUN/Creatinine Ratio 13.4 10-20 Random Glucose 114 70-99 mg/dl Calcium Level 7.8 8.5-10.1 mg/dl Magnesium Level 1.8 1.8-2.4 mg/dl Microbiology Results 02/06/17 Gram Stain, Received Pending 02/06/17 Bacterial Culture, Received Pending 02/06/17 Gram Stain, Received Pending 02/06/17 Bacterial Culture, Received Pending Assessment & Plan 02/07/17- s/p Incision/ drainage Rt axillary seroma- cult pending fluid was serous/clear. For eval by wound clinic team- hopefully can use wound vac- cont atbx- some concern for other source of fever- lung, urine?
[2017-02-07] MEDS: ALBUT/IPRATROP 3MG/0.5MG NEB 3 ML VIAL INH SCH ×4 (07:10→19:13)
--- NOTE | 2017-02-07 07:56 | Anesthesiology Progress Note ---
Anesthesia Post Op Note Date & Time Feb 07, 2017 at 07:56 Vital Signs Pain Intensity: 0.0 Vital Signs Past 12 Hours Date Time Temp Pulse Resp B/P (MAP) Pulse Ox O2 Delivery O2 Flow Rate FiO2 02/07/17 07:13 66 16 98 Nasal Cannula 5.0 02/07/17 04:00 36.7 88 22 89/55 (66) 95 Nasal Cannula 5.0 02/07/17 04:00 Nasal Cannula 5.0 02/07/17 00:04 Nasal Cannula 5.0 02/07/17 00:00 36.7 76 20 92/60 (71) 94 Nasal Cannula 5.0 02/06/17 20:00 Nasal Cannula 5.0 Notes Mental Status: alert / awake / arousable, participated in evaluation Pt Amnestic to Procedure: Yes Nausea / Vomiting: adequately controlled Pain: adequately controlled Airway Patency, RR, SpO2: stable & adequate BP & HR: stable & adequate Hydration State: stable & adequate Anesthetic Complications: no major complications apparent
[2017-02-07] MEDS: THIAMINE HCL 100 MG TAB PO SCH ×2 (09:12→20:59)
[2017-02-07] MEDS: FLUTICASONE/SALMETEROL 250/50 (ADVAIR) 14 PUFF/1 INHALER INH SCH ×2 (09:12→20:00)
[2017-02-07] MEDS: CITALOPRAM 40 MG TAB PO SCH (09:12)
[2017-02-07] MEDS: MULTIVITAMIN TAB PO SCH (09:12)
[2017-02-07] MEDS: ENOXAPARIN 40 MG/0.4 ML SYR SC SCH (09:13)
[2017-02-07] MEDS ORDERED: VANCOMYCIN TROUGH SCH (09:30)
--- NOTE | 2017-02-07 12:42 | Pharmacy Progress Note ---
Pharmacy Abx Dose Short Note Date of Service Feb 07, 2017. Assessment & Plan Assessment * 61 year old female receiving VANCOMYCIN 750mg IV Q 12 hours + ZOSYN 3.375gm extended-infusion IV Q 8 hours for treatment of HCAP/COPD exacerbation as well as possible infected axillary fluid collection * Thus far no growth in cultures * Axillary fluid drainage reported to be clear and serous in appearance, no organisms visualized on gram stains but many WBC present, cx's still pending * WBC has been stable and not climbing - she really never did mount a leukocytosis although she did have a L shift and neutrophilia on admission (has resolved) * VS stable, sat well on the same O2 requirements (5L NC) * Renal fxn stable based upon labs and U.O. Plan Vancomycin * Trough level of 8.9 mcg/mL is subtherapeutic. The level was drawn at the appropriate time. The prior dose was hung about 2 hrs late, thus this trough is likely a little higher than it would have been if dose had been given on schedule. This level was drawn prior to achieving steady-state, and may continue to rise a little w/ repeat dosing however I doubt our goal trough would be achieved at steady-state. * Change to 750 mg IV every 8 hours * Goal trough level for HCAP : 15 to 20 mcg/mL * Trough level ordered for: 02/09/17 Zosyn * No change in dose is required at this time. Pharmacy will continue to follow and will adjust dose/frequency as necessary. Thank you.
--- NOTE | 2017-02-07 13:14 | Wound Consultation: Inpatient ---
Wound Consultation Date of Consultation: Feb 07, 2017. Attending Physician: Favian Avilez MD Reason for Consultation: Postoperative wound right chest wall History of Present Illness The patient underwent a evacuation of a seroma on the right axillary chest wall region yesterday per Dr. Mercer. Patient was admitted to [facility] yesterday for evaluation of fever and other systemic complaints. Patient the current time states she is feeling improved however still has intermittent headaches. Patient denies any significant pain in the chest area of the incision. Patient denies any fever or chills at this time. Patient denies any shortness of breath abdominal discomfort nausea or vomiting. Patient denies any other systemic complaints. Family History FH: cancer FH: heart disease Social History Smoking Status: Former Smoker Smokeless Tobacco Use: No Alcohol Use: none Drug Use: none Marital Status: single, Housing Status: lives alone Occupation Status: employed Allergies Coded Allergies: Vinegar (Verified Allergy, Severe, ANAPHYLAXIS, 02/05/17) Sulfa Antibiotics (Verified Allergy, Intermediate, HIVES,SWELLING,RASH, ) Latex (Verified Allergy, Mild, rash, 02/05/17) Adhesives (Verified Adverse Reaction, Mild, RASH IRRITATION, 02/05/17) Home Medications Scheduled Aspirin (Aspirin Ec), 81 MG PO QPM Citalopram (Citalopram Hydrobromide), 40 MG PO QAM Multivitamin (Multivitamin), 1 TAB PO QAM Saline (Saline Nasal [place] Infant), 1-2 SPRY GISSELLE PRN Scheduled PRN Fluticasone Prop/Salmeterol (Advair Diskus 250/50 60 Dose), 1 PUFF INH BID PRN for SOB/Wheezing Fluticasone Propionate (Nasal) (Flonase Allergy Relief), 2 SPRAYS G[place] BID PRN for Nasal Congestion Ipratropium-Albuterol (Combivent Respimat), 1 PUFFS INH Q4 PRN for Shortness of Breath Inpatient Medications Current Inpatient Medications Medications (Trade) Dose Ordered Sig/Gaudencio Route Start Time Stop Time Status Last Admin Dose Admin Enoxaparin Sodium (Lovenox Inj) 40 mg Q24H SC 02/06/17 09:00 03/08/17 08:59 02/07/17 09:13 40 MG Acetaminophen (Tylenol Tab) 650 mg Q4H PRN PO 02/06/17 02:00 03/08/17 01:59 02/06/17 09:59 650 MG Al Hydrox/Mg Hydrox/Simethicone (Maalox Max Susp) 15 ml Q4H PRN PO 02/06/17 02:00 03/08/17 01:59 Magnesium Hydroxide (Milk Of Magnesia Susp) 30 ml Q12H PRN PO 02/06/17 02:00 03/08/17 01:59 Ondansetron HCl (Zofran Inj) 4 mg Q6H PRN IV 02/06/17 02:00 03/08/17 01:59 Polyethylene (Miralax Powder Packet) 17 gm DAILY PRN PO 02/06/17 02:00 03/08/17 01:59 Piperacillin Sod/ Tazobactam Sod 3.375 gm/Dextrose 115 ml @ 28.75 mls/ hr Q8H IV 02/06/17 04:00 02/13/17 03:59 02/07/17 12:52 28.75 MLS/HR Aspirin (Ecotrin Tab) 81 mg QPM PO 02/06/17 21:00 03/08/17 20:59 02/06/17 20:37 81 MG Citalopram Hydrobromide (celeXA TAB) 40 mg QAM PO 02/06/17 09:00 03/08/17 08:59 02/07/17 09:12 40 MG Fluticasone Propionate (Flonase Nasal [place]) 2 sprays BID PRN GISSELLE 02/06/17 02:00 03/08/17 01:59 Albuterol/ Ipratropium (Combivent Respimat Inh) 1 puffs Q4 PRN INH 02/06/17 02:00 03/08/17 01:59 Multivitamins (Multivitamin Tab) 1 tab QAM PO 02/06/17 09:00 03/08/17 08:59 02/07/17 09:12 1 TAB Sodium Chloride ([place] Nasal [place]) 1 sprays PRN PRN GISSELLE 02/06/17 02:00 03/08/17 01:59 Albuterol/ Ipratropium (Duoneb) 3 ml QIDR INH 02/06/17 08:00 03/08/17 07:59 02/07/17 11:31 3 ML Vancomycin HCl (Consult) 1 ea UD PRN N/A 02/06/17 02:30 03/08/17 02:29 Piperacillin Sod/ Tazobactam Sod (Consult) 1 ea UD PRN N/A 02/06/17 02:45 03/08/17 02:44 Acetaminophen/ Hydrocodone Bitart ([place] 5/325 Tab) 1 tab Q4 PRN PO 02/06/17 12:45 02/20/17 12:44 02/07/17 11:09 1 TAB Acetaminophen/ Hydrocodone Bitart ([place] 5/325 Tab) 2 tab Q4 PRN PO 02/06/17 12:45 02/20/17 12:44 Morphine Sulfate (MoRPHine SULFATE INJ) 2 mg Q4H PRN IV 02/06/17 12:45 02/20/17 12:44 Morphine Sulfate (MoRPHine SULFATE INJ) 4 mg Q4H PRN IV 02/06/17 12:45 02/20/17 12:44 Salmeterol Xinafoate/ Fluticasone (Advair Diskus 250/50 Inh) 1 puff BID INH 02/06/17 21:00 03/08/17 01:59 02/07/17 09:12 1 PUFF Thiamine HCl (Vitamin B-1 Tab) 200 mg BID PO 02/06/17 21:00 03/08/17 20:59 02/07/17 09:12 200 MG Folic Acid (Folvite Tab) 1 mg QAM PO 02/07/17 09:00 03/09/17 08:59 02/07/17 09:12 1 MG Lorazepam (Ativan Tab) 1 mg UD PRN PO 02/06/17 19:45 03/08/17 19:44 Methylprednisolone Sodium Succinate 20 mg/Syringe 0.32 ml @ 1.5 mls/min Q12H IV 02/07/17 21:00 03/09/17 20:59 Vancomycin HCl 750 mg/Sodium Chloride 265 ml @ 125 mls/hr Q8H IV 02/07/17 18:00 02/13/17 09:59 Physical Exam Date Time Temp Pulse Resp B/P (MAP) Pulse Ox O2 Delivery O2 Flow Rate FiO2 02/07/17 12:13 36.8 82 18 96/62 (73) 97 02/07/17 11:44 70 16 95 Nasal Cannula 4.0 02/07/17 08:22 36.8 72 18 90/60 (70) 98 02/07/17 08:00 Nasal Cannula 5.0 02/07/17 07:13 66 16 98 Nasal Cannula 5.0 02/07/17 04:00 36.7 88 22 89/55 (66) 95 Nasal Cannula 5.0 02/07/17 04:00 Nasal Cannula 5.0 02/07/17 00:04 Nasal Cannula 5.0 02/07/17 00:00 36.7 76 20 92/60 (71) 94 Nasal Cannula 5.0 02/06/17 20:00 Nasal Cannula 5.0 02/06/17 19:56 78 16 91 Nasal Cannula 5.0 02/06/17 16:00 94 Nasal Cannula 4.0 02/06/17 15:48 36.6 94 22 84/56 (65) 90 Nasal Cannula 4.0 02/06/17 15:21 86 16 94 Nasal Cannula 4.0 02/06/17 14:31 79 16 89/58 (68) 93 Nasal Cannula 4.0 Humidified Oxygen 02/06/17 14:26 36.3 86 16 76/48 (57) 91 Nasal Cannula 4.0 02/06/17 14:10 36.2 82 16 98/58 91 Nasal Cannula 4 02/06/17 14:00 82 14 89/55 89 Nasal Cannula 4 02/06/17 13:50 82 16 97/56 91 Nasal Cannula 4 02/06/17 13:40 88 20 83/50 93 Nasal Cannula 4 02/06/17 13:30 87 15 80/51 92 Nasal Cannula 4 02/06/17 13:20 88 23 79/51 93 Nasal Cannula 4 General: The patient is lying in a hospital bed in no distress. Alert, cooperative and appropriate to all questions. HEENT: Pupils equal and reactive to light. Sclera clear, EOM intact. Neck: Supple, No JVD noted Chest: A postoperative wound is present in the right lateral chest wall distal to the axilla measuring 7.5 x 1.2 x 2.4 cm. No central slough, bleeding or drainage noted at this time. No periwound erythema tenderness or fluctuance present. Heart: RRR without murmurs, S3, S4, thrills, rubs or heaves Neurological: Alert and oriented x3. No focal deficits. Laboratory Results Last 24 Hours Test 02/07/17 04:16 02/07/17 09:37 White Blood Count 9.49 K/uL Red Blood Count 2.81 M/uL Hemoglobin 9.4 g/dL Hematocrit 28.9 % Mean Corpuscular Volume 102.8 fL Mean Corpuscular Hemoglobin 33.5 pg Mean Corpuscular Hemoglobin Concent 32.5 g/dl RDW Standard Deviation 46.4 fL RDW Coefficient of Variation 12.4 % Platelet Count 202 K/uL Mean Platelet Volume 8.2 fL Sodium Level 138 mmol/L Potassium Level 4.1 mmol/L Chloride Level 109 mmol/L Carbon Dioxide Level 26 mmol/L Anion Gap 3.0 mmol/L Blood Urea Nitrogen 6 mg/dl Creatinine 0.48 mg/dl Est Creatinine Clear Calc Drug Dose 103.1 ml/min Estimated GFR () 123.6 Estimated GFR (Non- 106.6 BUN/Creatinine Ratio 13.4 Random Glucose 114 mg/dl Calcium Level 7.8 mg/dl Magnesium Level 1.8 mg/dl Vancomycin Level Trough 8.9 mcg/ml Assessment & Plan Assessment: Postoperative wound right chest wall Drained seroma Plan: No debridement is indicated at this time. The wound site will be managed with a wound VAC black foam 125 mm of negative pressure wound VAC change Sunday. Patient will continue to be monitored during her hospital course and evaluated in the wound clinic following discharge. Patient understands the plan of treatment and is in agreement.
--- NOTE | 2017-02-07 14:40 | Surgery Progress Note ---
Surgery Progress Note Date of Service Feb 07, 2017. Subjective see below- A/P Objective Vital Signs: Date Time Temp Pulse Resp B/P (MAP) Pulse Ox O2 Delivery O2 Flow Rate FiO2 02/07/17 12:13 36.8 82 18 96/62 (73) 97 02/07/17 12:00 Nasal Cannula 5.0 02/07/17 11:44 70 16 95 Nasal Cannula 4.0 02/07/17 08:22 36.8 72 18 90/60 (70) 98 02/07/17 08:00 Nasal Cannula 5.0 02/07/17 07:13 66 16 98 Nasal Cannula 5.0 02/07/17 04:00 36.7 88 22 89/55 (66) 95 Nasal Cannula 5.0 02/07/17 04:00 Nasal Cannula 5.0 02/07/17 00:04 Nasal Cannula 5.0 02/07/17 00:00 36.7 76 20 92/60 (71) 94 Nasal Cannula 5.0 02/06/17 20:00 Nasal Cannula 5.0 02/06/17 19:56 78 16 91 Nasal Cannula 5.0 02/06/17 16:00 94 Nasal Cannula 4.0 02/06/17 15:48 36.6 94 22 84/56 (65) 90 Nasal Cannula 4.0 02/06/17 15:21 86 16 94 Nasal Cannula 4.0 Laboratory Results: Results Past 24 Hours Test 02/07/17 04:16 02/07/17 09:37 Range/Units White Blood Count 9.49 4.8-10.8 K/uL Red Blood Count 2.81 4.2-5.4 M/uL Hemoglobin 9.4 12.0-16.0 g/dL Hematocrit 28.9 37-47 % Mean Corpuscular Volume 102.8 80-100 fL Mean Corpuscular Hemoglobin 33.5 25-34 pg Mean Corpuscular Hemoglobin Concent 32.5 32-36 g/dl RDW Standard Deviation 46.4 36.4-46.3 fL RDW Coefficient of Variation 12.4 11.5-14.5 % Platelet Count 202 130-400 K/uL Mean Platelet Volume 8.2 7.4-10.4 fL Sodium Level 138 136-145 mmol/L Potassium Level 4.1 3.5-5.1 mmol/L Chloride Level 109 98-107 mmol/L Carbon Dioxide Level 26 21-32 mmol/L Anion Gap 3.0 3-11 mmol/L Blood Urea Nitrogen 6 7-18 mg/dl Creatinine 0.48 0.60-1.20 mg/dl Est Creatinine Clear Calc Drug Dose 103.1 ml/min Estimated GFR () 123.6 Estimated GFR (Non- 106.6 BUN/Creatinine Ratio 13.4 10-20 Random Glucose 114 70-99 mg/dl Calcium Level 7.8 8.5-10.1 mg/dl Magnesium Level 1.8 1.8-2.4 mg/dl Vancomycin Level Trough 8.9 SEE COMMENT mcg/ml Assessment & Plan 02/07/17- cult shows coag neg staph in seroma fluid- culture is not final- cont current atbx for now 02/07/17- s/p Incision/ drainage Rt axillary seroma- cult pending fluid was serous/clear. For eval by wound clinic team- hopefully can use wound vac- cont atbx- some concern for other source of fever- lung, urine? 02/07/17- s/p Incision/ drainage Rt axillary seroma- cult pending fluid was serous/clear. For eval by wound clinic team- hopefully can use wound vac- cont atbx- some concern for other source of fever- lung, urine?
--- NOTE | 2017-02-07 20:03 | Progress Note ---
Subjective Date of Service: Feb 07, 2017. Subjective Pt evaluation today including: conversation w/ patient, physical exam, chart review, lab review, conversation w/ bridal stylist sales consultant (Dr. Mercer - surgery; Dr. Downs - rad onc) Pain: denies any cp or abd pain PO Intake: improved Voiding: no voiding problems tele stable overnight feels much better today denies significant cough or dyspnea right axillary region feels much better no fevers or chills Problem List Medical Problems: (1) Acute alcohol intoxication Status: Acute (2) Alcohol abuse Status: Chronic (3) Alteration in self-care ability Status: Acute (4) Anxiety Status: Chronic (5) Breast abscess Status: Acute (6) Cellulitis Status: Acute (7) Closed head injury Status: Acute (8) Depression Status: Chronic (9) Facial abrasion Status: Acute (10) Facial contusion Status: Acute (11) Fibromyalgia Status: Chronic (12) Generalized weakness Status: Acute (13) Hepatitis Status: Chronic (14) Hyponatremia Status: Acute (15) Malnourished Status: Chronic (16) Pneumonia, community acquired Status: Acute (17) PTSD (post-traumatic stress disorder) Status: Chronic Review of Systems Constitutional: No fever, No chills Respiratory: No cough, No shortness of breath Cardiac: No chest pain Abdomen: No pain, No diarrhea Objective Vital Signs Date Time Temp Pulse Resp B/P (MAP) Pulse Ox O2 Delivery O2 Flow Rate FiO2 02/07/17 19:28 78 16 94 Nasal Cannula 1.0 02/07/17 16:00 96 Nasal Cannula 2.0 02/07/17 16:00 36.8 72 18 116/72 (87) 96 Nasal Cannula 2.0 02/07/17 14:35 36.6 74 18 95/57 (70) 93 Nasal Cannula 2.0 02/07/17 14:15 36.8 82 18 97 4.0 02/07/17 12:13 36.8 82 18 96/62 (73) 97 02/07/17 12:00 Nasal Cannula 5.0 02/07/17 11:44 70 16 95 Nasal Cannula 4.0 02/07/17 08:22 36.8 72 18 90/60 (70) 98 02/07/17 08:00 Nasal Cannula 5.0 02/07/17 07:13 66 16 98 Nasal Cannula 5.0 02/07/17 04:00 36.7 88 22 89/55 (66) 95 Nasal Cannula 5.0 02/07/17 04:00 Nasal Cannula 5.0 02/07/17 00:04 Nasal Cannula 5.0 02/07/17 00:00 36.7 76 20 92/60 (71) 94 Nasal Cannula 5.0 02/06/17 20:00 Nasal Cannula 5.0 Physical Exam General Appearance: no apparent distress ENT: pharynx normal Neck: no JVD Respiratory/Chest: no respiratory distress, no accessory muscle use, + decreased breath sounds (mild, left base), + crackles (fine, mild, both bases) Cardiovascular: regular rate, rhythm, no gallop, + systolic murmur (LSB) Abdomen: normal bowel sounds, non tender, soft, no organomegaly Extremities: no pedal edema Neurologic/Psychiatric: alert, oriented x 3 Skin: + pertinent finding (large incision in right axillae - no surrounding erythema, minimal drainage) Laboratory Results Last 24 Hours Test 02/07/17 04:16 02/07/17 09:37 White Blood Count 9.49 K/uL Red Blood Count 2.81 M/uL Hemoglobin 9.4 g/dL Hematocrit 28.9 % Mean Corpuscular Volume 102.8 fL Mean Corpuscular Hemoglobin 33.5 pg Mean Corpuscular Hemoglobin Concent 32.5 g/dl RDW Standard Deviation 46.4 fL RDW Coefficient of Variation 12.4 % Platelet Count 202 K/uL Mean Platelet Volume 8.2 fL Sodium Level 138 mmol/L Potassium Level 4.1 mmol/L Chloride Level 109 mmol/L Carbon Dioxide Level 26 mmol/L Anion Gap 3.0 mmol/L Blood Urea Nitrogen 6 mg/dl Creatinine 0.48 mg/dl Est Creatinine Clear Calc Drug Dose 103.1 ml/min Estimated GFR () 123.6 Estimated GFR (Non- 106.6 BUN/Creatinine Ratio 13.4 Random Glucose 114 mg/dl Calcium Level 7.8 mg/dl Magnesium Level 1.8 mg/dl Vancomycin Level Trough 8.9 mcg/ml Assessment and Plan 61yo female: 1. acute hypoxic respiratory failure - 2nd to COPD exacerbation + LLL pneumonia. Resolving. Wean O2. Cont incentive yaw, abx, and steroids along with nebs. 2. COPD exacerbation - improved. nebs, o2, pulmonary toilet, abx, and IV steroids but wean such to 20mg q12h anticipate we can transition to PO prednisone in AM 3. LLL pneumonia - cover for hospital acquired given hospital stay within <90 days. Cont vanco + zosyn. Day # 3 of IV abx 4. sepsis 2nd to #3 and #5 - resolved. 5. low-normal BP - resolved. She tends to run in the 90s systolic even when well and she denied any dizziness again today. 6. right axillary seroma vs abscess - POD #1 s/p I & D by Dr. Mercer - appreciate his assistance. culture with coag negative staph [facility]AN[facility] will cover such will ask lab to run sensitivity panel 7. h/o alcohol abuse - no signs of withdrawal thiamine/folic acid/MVI etoh withdrawal protocol ativan prn 8. DVT proph - lovenox 9. h/o lung cancer and breast cancer - noted 10. hyponatremia - resolved ok to transfer to med/surg PT, OT to determine post-discharge disposition Continued [facility] stay due to: multiple IV medications needed Discharge planning: uncertain
[2017-02-07] MEDS: METHYLPREDNISOLONE IV 20 MG in SYRINGE 0 ML IV SCH (20:58)
[2017-02-07] MEDS: ASPIRIN 81 MG ECTAB PO SCH (20:58)
[2017-02-07] MEDS ORDERED: METHYLPREDNISOLONE IV 40 MG in SYRINGE 0 ML IV SCH (21:00)
[2017-02-08] VITALS (11 sets, daily range): BP systolic 111–121; BP diastolic 66–81; PULSE 69–100; TEMP 36.4–36.7; O2SAT 90–96
[2017-02-08] MEDS: VANCOMYCIN INJ 750 MG in SODIUM CHLORIDE 0.9% 250ML 250 ML IV SCH ×3 (02:46→17:59)
[2017-02-08] MEDS: PIPERACILL/TAZOBAC IV 3.375 GM in DEXTROSE 5% 100ML 100 ML IV SCH ×3 (05:16→20:39)
--- NOTE | 2017-02-08 06:09 | Surgery Progress Note ---
Surgery Progress Note Date of Service Feb 08, 2017. Subjective feeling ok- much improved since adm cult- coag neg staph- sensitivities pending Objective Vital Signs: Date Time Temp Pulse Resp B/P (MAP) Pulse Ox O2 Delivery O2 Flow Rate FiO2 02/08/17 04:00 36.7 74 18 111/72 (85) 95 2.0 02/08/17 00:13 36.5 69 18 114/74 (87) 90 2.0 02/08/17 00:00 Nasal Cannula 2.0 02/07/17 20:26 36.6 78 16 102/59 (73) 93 Nasal Cannula 2.0 02/07/17 19:28 78 16 94 Nasal Cannula 1.0 02/07/17 16:00 96 Nasal Cannula 2.0 02/07/17 16:00 36.8 72 18 116/72 (87) 96 Nasal Cannula 2.0 02/07/17 14:35 36.6 74 18 95/57 (70) 93 Nasal Cannula 2.0 02/07/17 14:15 36.8 82 18 97 4.0 02/07/17 12:13 36.8 82 18 96/62 (73) 97 02/07/17 12:00 Nasal Cannula 5.0 02/07/17 11:44 70 16 95 Nasal Cannula 4.0 02/07/17 08:22 36.8 72 18 90/60 (70) 98 02/07/17 08:00 Nasal Cannula 5.0 02/07/17 07:13 66 16 98 Nasal Cannula 5.0 General Appearance: no apparent distress Respiratory/Chest: no respiratory distress Incision(s): intact (wound vac in place) Laboratory Results: Results Past 24 Hours Test 02/07/17 09:37 02/08/17 05:23 Range/Units Vancomycin Level Trough 8.9 SEE COMMENT mcg/ml Assessment & Plan 02/08/17- wound vac in place - Rt axilla, doing well on current regime- adjust atbx after sensitivities back then can d/c, f/u wound clinic 02/07/17- cult shows coag neg staph in seroma fluid- culture is not final- cont current atbx for now 02/07/17- s/p Incision/ drainage Rt axillary seroma- cult pending fluid was serous/clear. For eval by wound clinic team- hopefully can use wound vac- cont atbx- some concern for other source of fever- lung, urine? 02/07/17- cult shows coag neg staph in seroma fluid- culture is not final- cont current atbx for now 02/07/17- s/p Incision/ drainage Rt axillary seroma- cult pending fluid was serous/clear. For eval by wound clinic team- hopefully can use wound vac- cont atbx- some concern for other source of fever- lung, urine?
[2017-02-08 07:20] LABS: CREATININE 0.53 mg/dl (0.60-1.20)
[2017-02-08] MEDS: FLUTICASONE/SALMETEROL 250/50 (ADVAIR) 14 PUFF/1 INHALER INH SCH ×2 (07:37→20:00)
[2017-02-08] MEDS: THIAMINE HCL 100 MG TAB PO SCH ×2 (07:38→20:40)
[2017-02-08] MEDS: METHYLPREDNISOLONE IV 20 MG in SYRINGE 0 ML IV SCH (07:38)
[2017-02-08] MEDS: MULTIVITAMIN TAB PO SCH (07:38)
[2017-02-08] MEDS: ENOXAPARIN 40 MG/0.4 ML SYR SC SCH (07:38)
[2017-02-08] MEDS: CITALOPRAM 40 MG TAB PO SCH (07:38)
[2017-02-08] MEDS: ALBUT/IPRATROP 3MG/0.5MG NEB 3 ML VIAL INH SCH ×4 (08:08→19:16)
[2017-02-08] MEDS: POLYETHYLENE (MIRALAX) 17 GM PACK PO SCH (10:00)
[2017-02-08] MEDS: SENNA 8.6 MG TAB PO SCH (10:00)
[2017-02-08] MEDS: ASPIRIN 81 MG ECTAB PO SCH (20:40)
[2017-02-08] MEDS: HYDROCODONE/ACETAMOPHEN 5/325MG TAB PO PRN (20:48)
--- NOTE | 2017-02-08 20:59 | Progress Note ---
Subjective Date of Service: Feb 08, 2017. Subjective Pt evaluation today including: conversation w/ patient, conversation w/ family (at bedside), physical exam, chart review, lab review, review of inpatient medication list Pain: denies PO Intake: much improved Voiding: no voiding problems feels "so much better" today more energy, appetite more robust denies dyspnea denies any significant cough Problem List Medical Problems: (1) Acute alcohol intoxication Status: Acute (2) Alcohol abuse Status: Chronic (3) Alteration in self-care ability Status: Acute (4) Anxiety Status: Chronic (5) Breast abscess Status: Acute (6) Cellulitis Status: Acute (7) Closed head injury Status: Acute (8) Depression Status: Chronic (9) Facial abrasion Status: Acute (10) Facial contusion Status: Acute (11) Fibromyalgia Status: Chronic (12) Generalized weakness Status: Acute (13) Hepatitis Status: Chronic (14) Hyponatremia Status: Acute (15) Malnourished Status: Chronic (16) Pneumonia, community acquired Status: Acute (17) PTSD (post-traumatic stress disorder) Status: Chronic Review of Systems Constitutional: No fever, No chills Respiratory: + dyspnea on exertion (minimal), No dyspnea at rest Cardiac: No chest pain, No orthopnea Abdomen: + problem reported (had bowel movement this am), No pain, No diarrhea Objective Vital Signs Date Time Temp Pulse Resp B/P (MAP) Pulse Ox O2 Delivery O2 Flow Rate FiO2 02/08/17 19:37 36.6 100 16 111/66 (81) 95 Room Air 02/08/17 19:16 77 16 92 Room Air 02/08/17 16:24 36.4 88 18 121/81 (94) 94 Room Air 02/08/17 16:00 93 Room Air 02/08/17 15:56 81 16 93 Room Air 02/08/17 13:14 36.5 92 20 113/72 (86) 92 Room Air 02/08/17 11:53 75 16 92 Nasal Cannula 02/08/17 08:09 71 15 91 Nasal Cannula 2.0 02/08/17 08:00 36.7 82 18 119/76 (90) 96 Nasal Cannula 2.0 02/08/17 08:00 Nasal Cannula 2.0 02/08/17 04:00 36.7 74 18 111/72 (85) 95 2.0 02/08/17 00:13 36.5 69 18 114/74 (87 90 2.0 02/08/17 00:00 Nasal Cannula 2.0 Physical Exam General Appearance: no apparent distress, + pertinent finding (looks very good today) ENT: pharynx normal Neck: no JVD Respiratory/Chest: no respiratory distress, no accessory muscle use, + decreased breath sounds (left base), + rales (mild, left base) Cardiovascular: regular rate, rhythm, no gallop Abdomen: normal bowel sounds, non tender, soft, no organomegaly Extremities: no pedal edema Neurologic/Psychiatric: alert, oriented x 3 Skin: + pertinent finding (wound vac in place, right axillae; no surrounding erythema ) Laboratory Results Last 24 Hours Test 02/08/17 05:23 Creatinine 0.53 mg/dl Est Creatinine Clear Calc Drug Dose 93.4 ml/min Estimated GFR () 119.6 Estimated GFR (Non- 103.2 Assessment and Plan 61yo female: 1. acute hypoxic respiratory failure - 2nd to COPD exacerbation + LLL pneumonia. Resolved. She is off O2 today. Cont incentive yaw, abx, and steroids along with nebs. 2. COPD exacerbation - improved/resolving. nebs, o2, pulmonary toilet, abx. Change steroids to prednisone. 3. LLL pneumonia - cover for hospital acquired given hospital stay within <90 days. Cont vanco + zosyn. Day # 4 of IV abx 4. sepsis 2nd to #3 and #5 - resolved. 5. low-normal BP - resolved. She tends to run in the 90s systolic even when well and she denied any dizziness again today. 6. right axillary seroma vs abscess - POD #2 s/p I & D by Dr. Mercer - appreciate his assistance. culture with coag negative staph, sensitivities pending [facility] will cover such for now 7. h/o alcohol abuse - no signs of withdrawal thiamine/folic acid/MVI etoh withdrawal protocol in place as precautionary measure ativan prn 8. DVT proph - lovenox 9. h/o lung cancer and breast cancer - noted 10. hyponatremia - resolved cleared by PT, OT for home SW to assist with wound vac for home use await final culture results home tomorrow hopefully family updated Continued [facility] stay due to: multiple IV medications needed Discharge planning: home
[2017-02-09] VITALS (9 sets, daily range): BP systolic 93–122; BP diastolic 65–73; PULSE 79–96; TEMP 36.3–36.7; O2SAT 90–98
[2017-02-09] MEDS ORDERED: VANCOMYCIN TROUGH ONE (01:30)
[2017-02-09] MEDS: VANCOMYCIN INJ 750 MG in SODIUM CHLORIDE 0.9% 250ML 250 ML IV SCH ×2 (02:09→09:20)
[2017-02-09] MEDS: PIPERACILL/TAZOBAC IV 3.375 GM in DEXTROSE 5% 100ML 100 ML IV SCH (04:56)
[2017-02-09 06:52] LABS: CREATININE 0.6 mg/dl (0.60-1.20)
--- NOTE | 2017-02-09 06:54 | Surgery Progress Note ---
Surgery Progress Note Date of Service Feb 09, 2017. Subjective doing well cult final- no sensitivity Objective Vital Signs: Date Time Temp Pulse Resp B/P (MAP) Pulse Ox O2 Delivery O2 Flow Rate FiO2 02/09/17 03:49 36.6 90 20 116/68 (84) 92 Room Air 02/09/17 00:18 36.7 82 18 110/73 (85) 92 Room Air 02/09/17 00:00 92 Room Air 02/08/17 19:37 36.6 100 16 111/66 (81) 95 Room Air 02/08/17 19:16 77 16 92 Room Air 02/08/17 16:24 36.4 88 18 121/81 (94) 94 Room Air 02/08/17 16:00 93 Room Air 02/08/17 15:56 81 16 93 Room Air 02/08/17 13:14 36.5 92 20 113/72 (86) 92 Room Air 02/08/17 11:53 75 16 92 Nasal Cannula 02/08/17 08:09 71 15 91 Nasal Cannula 2.0 02/08/17 08:00 36.7 82 18 119/76 (90) 96 Nasal Cannula 2.0 02/08/17 08:00 Nasal Cannula 2.0 Incision(s): intact Laboratory Results: Results Past 24 Hours Test 02/09/17 01:26 02/09/17 05:32 Range/Units Vancomycin Level Trough 16.8 SEE COMMENT mcg/ml Assessment & Plan 02/09/17- for wound vac chg today. will ask ID thoughts on atbx- I will call. d/c home possibly today if ok with med team. f/u wound clinic and my office 02/08/17- wound vac in place - Rt axilla, doing well on current regime- adjust atbx after sensitivities back then can d/c, f/u wound clinic 02/07/17- cult shows coag neg staph in seroma fluid- culture is not final- cont current atbx for now 02/07/17- s/p Incision/ drainage Rt axillary seroma- cult pending fluid was serous/clear. For eval by wound clinic team- hopefully can use wound vac- cont atbx- some concern for other source of fever- lung, urine? 02/08/17- wound vac in place - Rt axilla, doing well on current regime- adjust atbx after sensitivities back then can d/c, f/u wound clinic 02/07/17- cult shows coag neg staph in seroma fluid- culture is not final- cont current atbx for now 02/07/17- s/p Incision/ drainage Rt axillary seroma- cult pending fluid was serous/clear. For eval by wound clinic team- hopefully can use wound vac- cont atbx- some concern for other source of fever- lung, urine?
--- NOTE | 2017-02-09 06:57 | Discharge Instructions ---
Discharge Instructions Date of Service Feb 09, 2017. Admission Reason for Admission: Hypoxia, Weakness Discharge Discharge Diagnosis / Problem: infected Rt axillary seroma Discharge Goals Goal(s): Decrease discomfort, Improve function, Improve disease control Activity Recommendations Activity Limitations: as noted below Lifting Limitations: no more than 25 pounds Exercise/Sports Limitations: until after follow-up appointment May Resume Sexual Activity: when tolerated Shower/Bathe: keep incision dry (per wound vac instructions) Driving or Machine Use: resume 3 days after discharge . Instructions / Follow-Up Instructions / Follow-Up call Dr Mercer's office [phone] for appt for 2-3 weeks Current Hospital Diet Patient's current hospital diet: Regular Diet Discharge Diet Recommended Diet: Regular Diet Procedures Procedures Performed: incision/ drainage Rt axillary seroma Pending Studies Studies pending at discharge: no Medical Emergencies . Who to Call and When: Medical Emergencies: If at any time you feel your situation is an emergency, please call 911 immediately. . Non-Emergent Contact Non-Emergency issues call your: Primary Care Provider, Oncologist, Surgeon . "Provider Documentation" section prepared by Raheem Mercer. . VTE Core Measure Inpt VTE Proph given/why not?: Enoxaparin (Lovenox)SQ, SCD's
[2017-02-09] MEDS: ALBUT/IPRATROP 3MG/0.5MG NEB 3 ML VIAL INH SCH ×3 (07:15→15:48)
[2017-02-09] MEDS: FLUTICASONE/SALMETEROL 250/50 (ADVAIR) 14 PUFF/1 INHALER INH SCH (07:49)
[2017-02-09] MEDS: THIAMINE HCL 100 MG TAB PO SCH (07:50)
[2017-02-09] MEDS: MULTIVITAMIN TAB PO SCH (07:50)
[2017-02-09] MEDS: CITALOPRAM 40 MG TAB PO SCH (07:50)
[2017-02-09] MEDS: SENNA 8.6 MG TAB PO SCH (07:51)
[2017-02-09] MEDS: ENOXAPARIN 40 MG/0.4 ML SYR SC SCH (07:51)
[2017-02-09] MEDS: POLYETHYLENE (MIRALAX) 17 GM PACK PO SCH (07:52)
[2017-02-09] MEDS: HYDROCODONE/ACETAMOPHEN 5/325MG TAB PO PRN (09:16)
[2017-02-09] MEDS ORDERED: THM100 PO (15:13)
[2017-02-09] MEDS ORDERED: PRED10TA PO (15:13)
[2017-02-09] MEDS ORDERED: AMOX875T PO (15:13)
[2017-02-09] MEDS ORDERED: FLV1 PO (15:13)
[2017-02-09] MEDS ORDERED: HYDR-5688 PO (15:13)
[2017-02-09] MEDS ORDERED: LEVO1TAB35 PO (15:13)
[2017-02-09] MEDS ORDERED: LACTCHW3 PO (15:13)
--- NOTE | 2017-02-12 00:17 | Discharge Summary ---
Discharge Summary Date of Service Feb 09, 2017. Discharge Summary Admission Date: Feb 06, 2017 at 01:49 Discharge Date: Feb 09, 2017 Discharge Disposition: Home Principal Diagnosis: infected right-sided axillary seroma Problems/Secondary Diagnoses: 1. acute hypoxic respiratory failure 2nd to LLL pneumonia 2. COPD with exacerbation 3. sepsis 2nd to LLL pneumonia and infected right-sided axillary seroma 4. h/o right-sided breast cancer 5. h/o alcohol abuse 6. anxiety 7. depression 8. h/o fibromyalgia 9. hyponatremia - resolved Immunizations: Have You Had Influenza Vaccine: Yes History of Tetanus Vaccine?: Yes History of Pneumococcal: Yes Pneumococcal Date: Jun 26, 2009 History of Hepatitis B Vaccine: No Procedures: 1. CT chest: IMPRESSION: 1. A 7.2 x 5.2 cm fluid collection within the right axilla. This favors a postoperative seroma. However, there is surrounding fat stranding which raises the possibility of an infected fluid collection/abscess. There is no gas within this fluid collection at this time. 2. There is a smaller adjacent 2.9 x 2.7 cm fluid collection within the lateral right breast adjacent to a few surgical clips. This also favors a postoperative seroma. A second infected fluid collection cannot be excluded on the basis of CT imaging alone. 3. Mild skin thickening and trabecular thickening within the right breast which could be due to the recent postoperative change or a cellulitis. 4. Increase in size in the patchy air consolidation within the base of the left lower lobe. The appearance favors inflammatory/infectious process. However, one to [address] follow-up is recommended following a course of antibiotic therapy to ensure resolution. 5. A few mildly enlarged and partially necrotic right axillary lymph nodes. This could be reactive or due to metastatic disease. 2. Incision & Drainage of axillary seroma 3. application of wound vac to right axillary wound Consultations: 1. general surgery - Raheem Mercer MD 2. wound care - Mehul Collins DO 3. PT, OT Medication Reconciliation New Medications: Amoxicillin & Pot Clavulanate (Augmentin 875-125 mg) 1 Tab Tab 875 MG PO BID for 7 Days, #14 TAB 0 Refills start 02/10/17 Lactobacillus (Lactinex) Chw 3 TAB PO TID for 7 Days, #63 CHW 0 Refills Levofloxacin (Levaquin) 750 Mg Tab 750 MG PO DAILY for 2 Days, #2 TAB 0 Refills start 02/10/17 Folic Acid (Folic Acid) 1 Mg Tab 1 MG PO QAM, #30 TAB 0 Refills Hydrocodone/Acetaminophen 5MG/325MG ([place] 5MG/325MG) Tab 1 TAB PO Q4 PRN for Pain, #20 TAB 0 Refills PRN PAIN Prednisone Tab (Prednisone) 10 Mg Tab 10 MG PO DIRECTED, #12 TAB 0 Refills start 02/10/17: 3 tabs daily x 2 days, 2 tabs daily x 2 days, then 1 tab daily x 2 days, then stop. Take with food. Thiamine HCl (Vitamin B-1) 100 Mg Tab 200 MG PO BID for 30 Days, #120 TAB 0 Refills Continued Medications: Aspirin (Aspirin Ec) 81 Mg Tab 81 MG PO QPM Citalopram (Citalopram Hydrobromide) 40 Mg Tab 40 MG PO QAM, #30 Fluticasone Prop/Salmeterol (Advair Diskus 250/50 60 Dose) 1 Ea Aerp 1 PUFF INH BID PRN for SOB/Wheezing, INHALER Fluticasone Propionate (Nasal) (Flonase Allergy Relief) 50 Mcg/Act Spr 2 SPRAYS GISSELLE BID PRN for Nasal Congestion Ipratropium-Albuterol (Combivent Respimat) 1 Aer Aer 1 PUFFS INH Q4 PRN for Shortness of Breath, INH Multivitamin (Multivitamin) Tab 1 TAB PO QAM, TAB Saline (Saline Nasal [place] Infant) 0.65 % Spr 1-2 SPRY GISSELLE PRN, #30 ML Discharge Exam Physical Exam: General Appearance: no apparent distress ENT: pharynx normal Neck: no JVD Respiratory/Chest: no respiratory distress, no accessory muscle use, + decreased breath sounds (left base), + rales (LLL) Cardiovascular: regular rate, rhythm, no gallop, no murmur, normal peripheral pulses Abdomen / GI: normal bowel sounds, non tender, soft, no organomegaly Extremities: no pedal edema Neurologic/Psychiatric: alert, oriented x 3 Skin: + pertinent finding (wound vac in place, right axillae ) Hospital Course HISTORY OF PRESENT ILLNESS: The patient presents to the ED complaining of one day of being achy, cold and having a fever of 102. She complains that her whole body has been very sore. Was also feeling slightly dizzy and unsteady on her feet. Feel some generalized weakness. No falls.Also has some generalized head pressure initially which is completely resolved at this time. She also has an incision site under her right axilla, from a previous lumpectomy with axillary node dissection which she notes has been feeling more swollen, tender and warm. She denies having any discharge from the site. She denies shortness of breath. She has been coughing, but has been per her baseline of COPD with no recent changes. Cough is non-productive. She denies wheezing. She denies any chest pain, palpitations, syncope or lower extremity swelling. She denies urinary symptoms or pain with urinating frequently. She denies abdominal pain, nausea or vomiting. She denies diarrhea or constipation. She has been following with Dr. Mercer for right-sided lumpectomy with axillary node dissection 3 weeks ago. Niece notes that she has had worsening swelling and drainage from the incision sites. She notes the incision sites are more tender than usual. She states that he is following along with her and drains it periodically in the office, via needle aspiration. She also had a port placed in September 2016. Currently has both breast and lung cancer (small cell). She is followed by Dr. Parrish. Currently, she is not receiving chemotherapy. She is starting her second round of radiation therapy this coming week. HOSPITAL COURSE: The patient's sepsis was due to her LLL pneumonia as well as a right-sided axillary seroma, ultimately found to be infected. The LLL pneumonia and COPD with exacerbation caused acute hypoxic respiratory failure. She was treated with IV antibiotics, IV steroids, oxygen, and supportive care. She was seen in consult by Dr. Raheem Mercer, general surgery, who took her to the OR and performed incision & drainage of the right axillary seroma. Intra-operative culture grew garcia-sensitive coag negative staph. She clinically improved following the I & D and several days of IV antibiotic therapy. [place] O2 was weaned off over several days. She was seen in consult by Dr. Mehul Collins, wound care, who recommended placement of a wound vac to the right axillary incision. Prior to discharge the social work team secured a home wound vac for the patient. She will [facility] with [facility] every Sunday/Sunday/Sunday for wound vac changes. At discharge she will complete a course of two antibiotics (levaquin and augmentin) along with a course of prednisone. Lastly, despite a history of alcohol abuse, the patient exhibited NO signs of alcohol withdrawal while hospitalized. Total Time Spent: Greater than 30 minutes This includes examination of the patient, discharge planning, medication reconciliation, and communication with other providers. Discharge Instructions Please refer to the electronic Patient Visit Report (Discharge Instructions) for additional information. Follow-Up 1. [facility] - Sunday02/12/17 at 9:[address] Mercer, general surgery - Sunday02/13/17 at 9:[address] Aldana's office with Lilly LAO - 02/15/17 at 12:50 pm Additional Copies To Raheem Mercer M.D.; Nadia Aldana M.D.; Lilly Gaines, C.R.N.P.; Mehul Collins, DO
--- NOTE | 2017-02-12 13:00 | EDITING REQUIRED CODING QUERY ---
CODING QUERY To promote full compliance with coding requirements relating to patient care, provider participation is requested in all cases of concrete panel installer uncertainty. Please assist us with the question(s) below: Coding Question(s): There is documentation of infected right-sided axillary seroma. Please clarify below, in your clinical opinion. ( ) Infected right-sided axillary seroma is a postoperative complication ( ) Infected right-sided axillary seroma is not a postoperative complication If possible please send this inquiry to Dr. Adrian Mercer from surgery. Dr. Mercer would be better suited to answer this. Thanks! Favian Francisco Physician's Response(s): Thank you Shena Moon Principal Diagnosis: "_that condition established after study, to be chiefly responsible for occasioning the admission of the patient to the hospital for care." Co-Existing Principal Diagnosis: "_when two or more diagnoses equally meet the criteria for principal diagnosis as determined by the circumstances of admission, diagnostic work up, and/or therapy provided, and the Alphabetic Index, Tabular List, or another coding guideline does not provide sequencing direction, any one of the diagnoses may be sequenced first." "When the physician has documented what appears to be a current diagnosis in the body of the record, but has not included the diagnosis in the final diagnostic statement, the physician should be asked whether the diagnosis should be added." (Source Coding [facility] 2 QTR90. p3-4)
--- NOTE | 2017-02-16 06:50 | EDITING REQUIRED CODING QUERY ---
CODING QUERY To promote full compliance with coding requirements relating to patient care, provider participation is requested in all cases of shank turner uncertainty. Please assist us with the question(s) below: Coding Question(s): There is documentation of infected right-sided axillary seroma. Please clarify below, in your clinical opinion. (X ) Infected right-sided axillary seroma is a postoperative complication ( ) Infected right-sided axillary seroma is not a postoperative complication Physician's Response(s): Thank you Shena Moon Principal Diagnosis: "_that condition established after study, to be chiefly responsible for occasioning the admission of the patient to the hospital for care." Co-Existing Principal Diagnosis: "_when two or more diagnoses equally meet the criteria for principal diagnosis as determined by the circumstances of admission, diagnostic work up, and/or therapy provided, and the Alphabetic Index, Tabular List, or another coding guideline does not provide sequencing direction, any one of the diagnoses may be sequenced first." "When the physician has documented what appears to be a current diagnosis in the body of the record, but has not included the diagnosis in the final diagnostic statement, the physician should be asked whether the diagnosis should be added." ([facility] 2 QTR90. p3-4)
[2017-03-01] MEDS ORDERED: THIA100T11 PO (13:22)
[2017-03-05] MEDS ORDERED: PRD/1 PO (14:28)
[2017-03-19] MEDS ORDERED: DXM/4 PO (09:32)
== END 2017-02-09 17:00 | disposition home or self-care (01) | DRG 862 ==
LOC: C.EDB 20:46 → C.2E 02-06 01:49 → ENRESERV 02-06 02:01 → C.MS4W 02-07 14:25
PROVIDERS: ADMIT Student in an Organized Health Care Education/Training Program; ATTEND Internal Medicine
PROC: 0J9D3ZX Drainage of Right Upper Arm Subcutaneous Tissue and Fascia, Percutaneous Approach, Diagnostic (ICD-10-PCS; principal; 2017-02-06 10:30)
DX: T81.4XXA Infection following a procedure, initial encounter (principal); A41.9 Sepsis, unspecified organism; J18.9 Pneumonia, unspecified organism; M96.843 Postprocedural seroma of a musculoskeletal structure following other procedure; J96.01 Acute respiratory failure with hypoxia; J44.0 Chronic obstructive pulmonary disease with (acute) lower respiratory infection; J44.1 Chronic obstructive pulmonary disease with (acute) exacerbation; E87.1 Hypo-osmolality and hyponatremia; B95.8 Unspecified staphylococcus as the cause of diseases classified elsewhere; F32.9 Major depressive disorder, single episode, unspecified; J44.9 Chronic obstructive pulmonary disease, unspecified; F10.10 Alcohol abuse, uncomplicated; Z51.81 Encounter for therapeutic drug level monitoring; Z79.899 Other long term (current) drug therapy; Z79.82 Long term (current) use of aspirin; Z85.3 Personal history of malignant neoplasm of breast; Z85.118 Personal history of other malignant neoplasm of bronchus and lung; Z87.891 Personal history of nicotine dependence; Y83.8 Other surgical procedures as the cause of abnormal reaction of the patient, or of later complication, without mention of misadventure at the time of the procedure

== ENCOUNTER → 2017-02-23 | Outpatient (CLI) | payer OTHER ==
[~2017-02-23] MED LIST changes: +DXM/4 PO; +FLV1 PO; +GADAVIST IV PRN; +HYDR-5688 PO; +LACTCHW3 PO; +PRD/1 PO; +PRED10TA PO; +THIA100T11 PO; +THM100 PO
--- NOTE | 2017-02-23 15:54 | DIAGNOSTIC IMAGING REPORT ---
Brain MRI WITH AND WITHOUT CONTRAST HISTORY: Breast cancer. Assess for metastatic disease. TECHNIQUE: Multiplanar multisequence MRI of the brain was performed both before and after the intravenous administration of contrast. COMPARISON STUDY: Brain MRI 06/05/2016. FINDINGS: Paranasal sinuses are clear. The orbits are unremarkable. A few partially opacified mastoid air cells. The major flow voids at the skull base are well-maintained. The ventricles are stable in size. There has been interval development of a total of 4 T2 hyperintense ring-enhancing lesions within the brain. These are located within the left cerebellar hemisphere, left temporal lobe, left parietal lobe, and right frontal lobe. Dominant lesion within the right frontal lobe measures 7 mm. There is also a nonenhancing 8 mm subependymal nodule within the occipital horn of the right lateral ventricle best seen on axial T2 image 11. These lesions favor metastatic foci. The T2 hyperintense focus within the central dejan has significantly improved. No acute infarct, mass effect, midline shift, or hematoma. IMPRESSION: Interval development of a total of 5 lesions within the brain as described above. These are consistent with metastatic disease until proven otherwise. Electronically signed by: Natanael Rushing M.D. 02/23/2017 3:53 PM Dictated Date/Time: 02/23/2017 3:27 PM
== END | disposition home or self-care (01) ==
LOC: C.MRI 14:20
PROVIDERS: ATTEND Nurse Practitioner Family
DX: C50.411 Malignant neoplasm of upper-outer quadrant of right female breast (principal); C34.32 Malignant neoplasm of lower lobe, left bronchus or lung; G93.9 Disorder of brain, unspecified

== ENCOUNTER → 2017-03-06 | Outpatient (CLI) | payer OTHER ==
[~2017-03-06] MED LIST changes: -GADAVIST IV PRN; -HYDR-5688 PO; -LACTCHW3 PO; +OPTIRAY 320 IV PRN; -PRED10TA PO; -THM100 PO
--- NOTE | 2017-03-06 15:42 | DIAGNOSTIC IMAGING REPORT ---
ABD/PELVIS IV AND ORAL CONT CLINICAL HISTORY: 61 years-old Female presenting with breast, lung CA. TECHNIQUE: Multidetector CT of the abdomen and pelvis was performed after the administration of oral and intravenous contrast. IV contrast: 120 mL of Optiray 320. A dose lowering technique was used consistent with the principles of ALARA (as low as reasonably achievable). COMPARISON: 05/19/2016. CT DOSE (mGy.cm): The estimated cumulative dose is 518.23. FINDINGS: Tool Dresser topogram: Unremarkable. Lung bases: Only minimal vague reticulation persists at the previous site of the left lower lobe nodule. No new pulmonary nodule. Normal heart size. No pericardial or pleural effusion. Liver: Normal morphology. Interval development of multiple (at least 5) hypodensities in the liver with irregular vague margins, which are suspicious and not present on prior exam. This involves both lobes of the liver, the largest in the medial left lobe measuring 9 mm (series 6 image 80). Patent hepatic vasculature. Biliary: Calcification noted along the course of the common bile duct, unchanged from prior and not definitively intraluminal. No intrahepatic or extra hepatobiliary ductal dilatation. Gallbladder contains gallstones. Pancreas: Normal. Spleen: Normal. Adrenal glands: Normal. 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 Extrarenal pelvises bilaterally. No nephrolithiasis. No renal mass. Ureters grossly normal. Bladder: The urinary bladder has an abnormal configuration that likely suggests pelvic ligamentous laxity. Pelvic organs: Uterus surgically absent. No adnexal masses. Bowel: Moderate stool burden in the right and transverse colon. Postsurgical changes of appendectomy. No bowel obstruction. Peripheral low-density in the duodenal bulb and descending portion of the duodenum. Few hypodensities along the mucosa in the jejunum also noted, which may represent Sharlene gland hyperplasia, intramural fat deposition, or prominent mucosal secretions. Peritoneal cavity: No free fluid or intraperitoneal gas. Vasculature: Atherosclerosis of the normal caliber abdominal aorta. IVC patent. Lymph nodes: No enlarged lymph nodes in the abdomen or pelvis. Abdominal wall: Diastasis of the rectus abdominis. Musculoskeletal: Degenerative changes of the spine. IMPRESSION: 1. Interval development of multiple (at least 5) suspicious lesions in the liver compatible with metastatic disease. This involves both lobes of the liver with the largest lesion measuring 9 mm. No lymphadenopathy or other sites of metastatic disease. 2. Only minimal vague reticulation persists at the previous site of the left lower lobe nodule. Electronically signed by: Ethan Benitez M.D. 03/06/2017 3:40 PM Dictated Date/Time: 03/06/2017 3:30 PM
--- NOTE | 2017-03-06 15:48 | DIAGNOSTIC IMAGING REPORT ---
CT SCAN OF THE CHEST WITH IV CONTRAST CLINICAL HISTORY: Breast cancer. Lung cancer. COMPARISON STUDY: Chest CT scans dated 02/05/2017 and 06/20/2009. Abdominal CT dated 05/19/2016 TECHNIQUE: Following the IV administration of 120 cc of Optiray 320, CT scan of the thorax was performed from the thoracic inlet to the upper abdomen. Images are reviewed in the axial, sagittal, and coronal planes. IV contrast was administered without complication. A dose lowering technique was utilized adhering to the principles of ALARA. CT DOSE: 518.23 mGy.cm FINDINGS: Thyroid: Imaged portions of the thyroid gland are normal in size and attenuation. Thoracic aorta: There is mild atherosclerotic calcification of the thoracic aorta, which is normal in caliber and demonstrates 4-vessel variant arch anatomy. No dissection is seen. A left subclavian central venous infusion port is in place. Pulmonary vasculature: The pulmonary trunk is normal in caliber. There are no filling defects identified in the central pulmonary vessels to indicate pulmonary embolus. Note that this examination was not protocoled for evaluation of the pulmonary arteries. Heart: The heart is normal in size and configuration, and without pericardial effusion. Lungs and pleural spaces: Emphysema is again noted. There is no airspace consolidation typical for pneumonia and no pleural effusion is identified. An irregular groundglass opacity in the left lower lobe is difficult to discretely measure but has decreased in size from previous. This now measures a maximum of 3.4 cm (previously measured 4.2 cm). An irregular nodule in the left upper lobe on image #70 is unchanged and measures up to 8 mm. Foci of atelectasis versus scarring are identified in the left upper lobe. No new pulmonary lesions are seen. Mediastinum: A large esophageal diverticulum is suggested on axial image #27. There are calcified mediastinal lymph nodes. No pathologically enlarged mediastinal nodes are identified. Radha: There are calcified hilar lymph nodes. No pathologically enlarged lymph nodes are seen. Axillae: There are pathologically enlarged right axillary and subpectoral lymph nodes. An axillary node on image #15 measures 1.9 cm and a subpectoral node on image #73 measures up to 1.9 cm. A small pocket of fluid in the right axilla on image #84 measures 1.5 cm and likely represents a tiny seroma. This has almost resolved from previous. No left axillary adenopathy is identified. Upper abdomen: A 1.3 cm low-attenuation lesion is seen in the right lobe of the liver on image #304 and a 1.2 cm lesion is seen in the left lobe on image #264. 2 additional subcentimeter lesions are seen on image #240. These are new from previous and highly concerning for metastatic disease. Skeletal structures: The skeletal structures are osteopenic. No lytic or blastic bony lesions are seen. Soft tissues: Postoperative change is identified in the right breast. An irregular nodule in the right breast is decreased in size from previous, now measuring up to 1.8 cm from this is presumably measured 2.9 cm). Induration in the right axilla is likely related to previous intervention. IMPRESSION: 1. Mixed response to treatment with overall progression of disease. 2. Right axillary lymphadenopathy has not significant change from 02/05/2017. Right subpectoral adenopathy has modestly increased in size. 3. The ill-defined pulmonary opacities in the left lower lobe have decreased in size from 02/05/2017. 4. An 8 mm left upper lobe nodule has not significantly changed. No new pulmonary lesions are identified. 5. There are several (at least 4) low-attenuation hepatic lesions measuring up to 1.3 cm. These are new from previous and highly concerning for metastatic disease. 6. The irregular nodule in the right breast has decreased in size from previous. 7. Emphysema. 8. There is a tiny residual seroma in the right axilla, almost completely resolved from 02/05/2017. 9. No airspace consolidation is identified typical for pneumonia and there is no pleural effusion. Electronically signed by: Bryson Moyer M.D. 03/06/2017 3:46 PM Dictated Date/Time: 03/06/2017 3:31 PM
== END | disposition home or self-care (01) ==
LOC: C.CTS 14:47
PROVIDERS: ATTEND Nurse Practitioner Family
DX: C50.411 Malignant neoplasm of upper-outer quadrant of right female breast (principal); C34.32 Malignant neoplasm of lower lobe, left bronchus or lung; K76.9 Liver disease, unspecified; R59.0 Localized enlarged lymph nodes

== ENCOUNTER → 2017-04-18 | Outpatient (CLI) | payer OTHER ==
[~2017-04-18] MED LIST changes: -OPTIRAY 320 IV PRN; -PRD/1 PO; +VALA500T60 PO
[2017-04-18 14:39] VITALS: BP 94/64; PULSE 104; TEMP 36.9; O2SAT 92
--- NOTE | 2017-04-18 16:15 | Radiation Oncology Follow-Up ---
Radiation Oncology Follow-Up Date of Visit Apr 18, 2017. Reason For Visit 1 month follow-up Radiation Completion Date Chest 12/13/16 and to brain 03/19/17 Diagnosis (1) Breast cancer Status: Acute Onset Date: 03/23/2016 Stage: lll Permanent Comment: Abnormal right breast mammogram 03/23/2016 Status post ultrasound-guided biopsies 04/24/2016 Finding of invasive ductal carcinoma with metastatic carcinoma of the axilla Estrogen receptor negative, progesterone receptor negative, HER-2/maida negative Neoadjuvant chemotherapy with Taxol carboplatin Status post lumpectomy and sentinel lymph node biopsy 01/01/2017 [id number] Last Edited By: Xochitl Sherman on Mar 26, 2017 11:02 (2) 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 Limited stage small cell carcinoma Status post completion of 6 cycles of Taxotere and carboplatin completed 2016 Status post completion of combined radiation 12/13/2016. She received 7000 cGy. Brain MRI - 02/23/17 - New brain metastasis Status post completion of whole brain radiation therapy 03/19/2017. She received 3000 cGy Last Edited By: Xochitl Sherman on Mar 26, 2017 10:49 History of Present Illness Ms. Ann was recently diagnosed with both locally advanced breast cancer and limited stage small cell lung carcinoma. Initially, the patient underwent bilateral digital screening mammograms on 03/23 which revealed a new 21 mm mass in the right breast the 10 o'clock position in a new 9 mm lymph node in the right axillary tail. The patient was brought back and underwent an ultrasound of the right breast on 04/12/2016 which confirmed a irregular solid vascular mass measuring 2.17 m in the greatest dimension in the 10 o'clock position; additional sonographic evaluation demonstrated 2 enlarged morphologically abnormal lymph nodes measuring 3.2 cm and 1.8 cm. The patient underwent ultrasound-guided biopsies of both the right breast mass and right axillary lymph node on 04/24/2016. The right breast mass came back consistent with invasive ductal carcinoma that was grade 2 and was estrogen receptor negative, progesterone receptor negative and HER-2 negative; the right axillary lymph node came back consistent with moderately differentiated adenocarcinoma. Shortly afterwards, the patient did undergo a chest x-ray for dyspnea and cough on 05/12/2016 which did reveal a left infrahilar nodular density. The patient subsequently underwent a CT of the chest on 05/08/2016 which revealed: "1. 2.4 cm mass within the upper outer quadrant of the right breast suggestive of a primary breast carcinoma. This could be correlated with biopsy results. Right axillary, precarinal and AP window lymph nodes highly suggestive of prosper spread of disease. 2. Increase in size of a 1.4 cm left lower lobe nodule. This is neoplastic and metastatic disease is favored." To complete staging workup, she did have a CT of the abdomen/pelvis on 05/19/2016 which revealed no evidence of distant metastatic disease. She did have a bone scan on 05/19/2016 which did reveal: " 1. An intense focus of radiotracer uptake at the junction of the right acetabulum/superior pubic ramus. No corresponding abnormality by CT. Regardless, this is highly suspicious for a metastatic focus. 2. Linear area of radiotracer uptake along the inferior endplate of T12 corresponding to the compression fracture." She did have x-rays of the hip, elbow and ribs on 05/20/2016 which showed no evidence of corresponding metastatic disease. She did have an MRI of the brain on 05/22/2016 which did not reveal any evidence of distant metastatic disease. The patient subsequently underwent a bronchoscopy/EBUS by Dr. Brenden Parr on 05/22/2016. Dr. Ald[place] did biopsy multiple lymph nodes including station 7, station L4, station R4 and station R10 which were all positive for metastatic small cell lung carcinoma. The patient went on to have a PET/CT scan on 06/07/2016 which revealed: "IMPRESSION: 1. FDG avid right axillary/ subpectoral, mediastinal, and left hilar lymphadenopathy consistent with metastatic disease. These are similar in size compared to the recent CT examinations. 2. No change in 1.5 cm FDG avid metastatic nodule within the left lower lobe. 3. Slight increase in size in the 2.7 cm FDG avid right breast mass. 4. No bony metastatic disease identified." The patient has been seen in consultation by Dr. Floyd Parrish from medical oncology. Dr. Parrish has recommended neoadjuvant chemotherapy targeted to both her small cell lung carcinoma and breast cancer followed by radiation therapy for treatment of her limited stage small cell lung cancer followed by surgery/radiation therapy for management of her breast cancer. The patient has received carboplatin and Taxotere underneath the supervision of Dr. Floyd Parrish. The patient did have a a restaging CT chest on 08/17/2016 which did reveal: "IMPRESSION: 1. Considerable improvement in the appearance of the chest. 2. All pathologic findings have diminished with the right axillary dominant node dimension decreasing from 3.6 cm to 2.4 cm. 3. Nodular density left lung base has diminished from 1.4 cm to 7 mm. 4. No evidence for new interval or progressive disease." We are now seeing the patient in consultation discuss the role of radiation therapy. Overall, the patient is doing relatively well. She states her energy, appetite and weight are all stable. She denies any fevers, chills or night sweats. She denies any hemoptysis. She denies any productive cough. She denies any focal neurologic deficits. She has no other complaints. Her case was presented at tumor board and was recommended that we proceed with treatment to the chest first and then Treatment for the breast cancer. She completed combined radiation and chemotherapy for the chest on 12/13/2016. She received 7000 cGy She recovered well from the combined radiation and chemotherapy for the small cell carcinoma the lung. She had mild radiation esophagitis this resolved without difficulty. She underwent a lumpectomy and sentinel lymph node biopsy on . This showed a residual 0.4 cm mass. It was unifocal. The grade was 2. The distance to closest margin was 1.5. 8 matter lymph nodes were found and all contain metastatic carcinoma. There was extranodal extension. The largest metastasis was 4.0 x 3.0 x 1.6 cm. The estrogen receptor was negative, progesterone weakly, focally NM positive. The HER-2/maida was negative. She is steadily recuperating from her surgery. She does have a seroma in the upper outer quadrant of the breast. More recently, the patient did have an MRI of the brain completed on 02/23/2017 revealed interval development of a total of 5 lesions within the brain consistent with metastatic disease. We been asked to evaluate the patient for consideration of palliative whole brain radiation therapy. Currently, the patient does have headaches and does note some black spots in her vision. She denies any seizures or any other focal neurologic deficits. Status post whole brain radiation therapy completed 03/19/2017. She received 3000 cGy. Interim History She's been followed closely by medical oncology. She had a CAT scan of the chest on 03/06/2017. This showed a mixed response to treatment with overall progression of the disease. The right axillary lymphadenopathy has not significantly changed from 02/05/2017. Right subpectoral adenopathy has mostly increased in size. Dr. Parrish has recommended a biopsy of the axillary adenopathy. This is scheduled to be performed tomorrow. She has been given a prescription for Xeloda. She has been working with her insurance company to get this filled. In regards treatment to the of the brain. She no longer has headaches. She completed the taper of dexamethasone approximate 2-3 weeks ago. She did not have any increase headaches after the dexamethasone was completed. Allergies Coded Allergies: Vinegar (Verified Allergy, Severe, ANAPHYLAXIS, 02/05/17) Sulfa Antibiotics (Verified Allergy, Intermediate, HIVES,SWELLING,RASH, ) Latex (Verified Allergy, Mild, rash, 02/05/17) Adhesives (Verified Adverse Reaction, Mild, RASH IRRITATION, 02/05/17) Home Medications Scheduled Aspirin (Aspirin Ec), 81 MG PO QPM Citalopram (Citalopram Hydrobromide), 40 MG PO QAM Multivitamin (Multivitamin), 1 TAB PO QAM Saline (Saline Nasal Tichnor Infant), 1-2 SPRY GISSELLE PRN Valacyclovir (Valtrex), 500 MG PO TID Scheduled PRN Fluticasone Prop/Salmeterol (Advair Diskus 250/50 60 Dose), 1 PUFF INH BID PRN for SOB/Wheezing Fluticasone Propionate (Nasal) (Flonase Allergy Relief), 2 SPRAYS GISSELLE BID PRN for Nasal Congestion Ipratropium-Albuterol (Combivent Respimat), 1 PUFFS INH Q4 PRN for Shortness of Breath Review of Systems Gastrointestinal: Symptoms: WNL Oral: Symptoms: No Problems Respiratory: Symptoms: Moist Cough, SOB With Exertion Other Respiratory: Reports no change Urinary: Symptoms: WNL Skin: Symptoms: No Problems Physical Exam Vital Signs Date Time Temp Pulse Resp B/P (MAP) Pulse Ox O2 Delivery O2 Flow Rate FiO2 04/18/17 14:39 36.9 104 20 94/64 92 Fatigue: Mild General Appearance: + pertinent finding (alopecia and martel face) Eyes: normal inspection, EOMI ENT: normal ENT inspection, hearing grossly normal Neck: no adenopathy, thyroid normal Respiratory/Chest: lungs clear, no respiratory distress, no accessory muscle use, + decreased breath sounds Breast: The adenopathy of the axilla on the right is not easily palpated. Cardiovascular: regular rate, rhythm, no gallop, no murmur Abdomen: non tender, soft Extremities: no pedal edema Neurologic/Psychiatric: no motor/sensory deficits, alert, normal mood/affect Skin: warm/dry Laboratory Studies Test 02/05/17 21:55 02/05/17 21:58 02/05/17 22:00 02/05/17 22:20 Influenza Type A Antigen Neg for Influ A (NEG) Influenza Type B Antigen Neg for Influ B (NEG) Venous Blood pH 7.46 (7.36-7.41) Venous Blood Partial Pressure CO2 40 mmHg (38.0-50.0) Venous Blood Partial Pressure O2 33 mmHg Venous Blood HCO3 28 mmol/L Venous Blood Oxygen Saturation 65.0 % Venous Blood Base Excess 3.6 mEq/L Lactic Acid Level 0.6 mmol/L (0.4-2.0) Prothrombin Time 10.2 SECONDS (9.0-12.0) Prothrombin Time INR 1.0 (0.9-1.1) PTT 37.2 SECONDS (21.0-31.0) Partial Thromboplastin Ratio 1.4 Direct Bilirubin 0.1 mg/dl (0-0.2) Lipase 278 U/L (73-393) Urine Color YELLOW Urine Appearance CLEAR (CLEAR) Urine pH 8.5 (4.5-7.5) Urine Specific [place] 1.015 (1.000-1.030) Urine Protein NEG (NEG) Urine Glucose (UA) NEG (NEG) Urine Ketones NEG (NEG) Urine Occult Blood NEG (NEG) Urine Nitrite NEG (NEG) Urine Bilirubin NEG (NEG) Urine Urobilinogen NEG (NEG) Urine Leukocyte Esterase MODERATE (NEG) Urine WBC (Auto) 1-5 /hpf (0-5) Urine RBC (Auto) 0-4 /hpf (0-4) Urine Hyaline Casts (Auto) 0 /lpf (0-5) Urine Epithelial Cells (Auto) 10-20 /lpf (0-5) Urine Bacteria (Auto) NEG (NEG) Test 02/06/17 01:49 02/06/17 05:46 02/07/17 04:16 02/07/17 09:37 Lab Scanned Report Lab Downtime Report Form Procalcitonin < 0.05 ng/ml (0-0.5) Magnesium Level 1.8 mg/dl (1.8-2.4) Vancomycin Level Trough 8.9 mcg/ml (SEE COMMENT) Test 02/08/17 05:23 02/09/17 01:26 02/09/17 05:32 03/23/17 14:35 Est Creatinine Clear Calc Drug Dose 93.4 ml/min 82.5 ml/min Vancomycin Level Trough 16.8 mcg/ml (SEE COMMENT) White Blood Count 11.26 K/uL (4.8-10.8) Red Blood Count 3.94 M/uL (4.2-5.4) Hemoglobin 13.7 g/dL (12.0-16.0) Hematocrit 39.9 % (37-47) Mean Corpuscular Volume 101.3 fL (80-100) Mean Corpuscular Hemoglobin 34.8 pg (25-34) Mean Corpuscular Hemoglobin Concent 34.3 g/dl (32-36) Platelet Count 198 K/uL (130-400) Mean Platelet Volume 8.2 fL (7.4-10.4) Neutrophils (%) (Auto) 89.8 % Lymphocytes (%) (Auto) 6.2 % Monocytes (%) (Auto) 2.8 % Eosinophils (%) (Auto) 0.1 % Basophils (%) (Auto) 0.1 % Neutrophils # (Auto) 10.12 K/uL (1.4-6.5) Lymphocytes # (Auto) 0.70 K/uL (1.2-3.4) Monocytes # (Auto) 0.31 K/uL (0.11-0.59) Eosinophils # (Auto) 0.01 K/uL (0-0.5) Basophils # (Auto) 0.01 K/uL (0-0.2) RDW Standard Deviation 53.4 fL (36.4-46.3) RDW Coefficient of Variation 14.5 % (11.5-14.5) Immature Granulocyte % (Auto) 1.0 % Immature Granulocyte # (Auto) 0.11 K/uL (0.00-0.02) Potassium Level 4.1 mmol/L (3.5-5.1) Chloride Level 90 mmol/L (98-107) Carbon Dioxide Level 28 mmol/L (21-32) Anion Gap 9.0 mmol/L (3-11) Blood Urea Nitrogen 14 mg/dl (7-18) Creatinine 0.64 mg/dl (0.60-1.20) Estimated GFR () 112.4 Estimated GFR (Non- 97.0 BUN/Creatinine Ratio 22.3 (10-20) Random Glucose 100 mg/dl (70-99) Calcium Level 8.6 mg/dl (8.5-10.1) Total Bilirubin 0.6 mg/dl (0.2-1) Aspartate Amino Transferase (AST) 15 U/L (15-37) Alanine Aminotransferase (ALT) 27 U/L (12-78) Alkaline Phosphatase 72 U/L (45-117) Lactate Dehydrogenase 224 U/L (84-246) Total Protein 7.0 gm/dl (6.4-8.2) Albumin 3.5 gm/dl (3.4-5.0) Globulin 3.5 gm/dl (2.5-4.0) Albumin/Globulin Ratio 1.0 (0.9-2) Test 03/27/17 14:21 04/16/17 12:27 Sodium Level 128 mmol/L (136-145) 129 mmol/L (136-145) White Blood Count 5.25 K/uL (4.8-10.8) Red Blood Count 3.61 M/uL (4.2-5.4) Hemoglobin 12.3 g/dL (12.0-16.0) Hematocrit 35.6 % (37-47) Mean Corpuscular Volume 98.6 fL (80-100) Mean Corpuscular Hemoglobin 34.1 pg (25-34) Mean Corpuscular Hemoglobin Concent 34.6 g/dl (32-36) Platelet Count 155 K/uL (130-400) Mean Platelet Volume 8.3 fL (7.4-10.4) Neutrophils (%) (Auto) 68.2 % Lymphocytes (%) (Auto) 17.1 % Monocytes (%) (Auto) 13.9 % Eosinophils (%) (Auto) 0.4 % Basophils (%) (Auto) 0.2 % Neutrophils # (Auto) 3.58 K/uL (1.4-6.5) Lymphocytes # (Auto) 0.90 K/uL (1.2-3.4) Monocytes # (Auto) 0.73 K/uL (0.11-0.59) Eosinophils # (Auto) 0.02 K/uL (0-0.5) Basophils # (Auto) 0.01 K/uL (0-0.2) RDW Standard Deviation 56.5 fL (36.4-46.3) RDW Coefficient of Variation 15.5 % (11.5-14.5) Immature Granulocyte % (Auto) 0.2 % Immature Granulocyte # (Auto) 0.01 K/uL (0.00-0.02) Potassium Level 3.5 mmol/L (3.5-5.1) Chloride Level 96 mmol/L (98-107) Carbon Dioxide Level 24 mmol/L (21-32) Anion Gap 9.0 mmol/L (3-11) Blood Urea Nitrogen 6 mg/dl (7-18) Creatinine 0.47 mg/dl (0.60-1.20) Estimated GFR () 124.4 Estimated GFR (Non- 107.4 BUN/Creatinine Ratio 12.2 (10-20) Random Glucose 101 mg/dl (70-99) Calcium Level 9.0 mg/dl (8.5-10.1) Total Bilirubin 0.5 mg/dl (0.2-1) Aspartate Amino Transferase (AST) 18 U/L (15-37) Alanine Aminotransferase (ALT) 21 U/L (12-78) Alkaline Phosphatase 91 U/L (45-117) Lactate Dehydrogenase 190 U/L (84-246) Total Protein 6.9 gm/dl (6.4-8.2) Albumin 3.4 gm/dl (3.4-5.0) Globulin 3.5 gm/dl (2.5-4.0) Albumin/Globulin Ratio 1.0 (0.9-2) Assessment & Plan Plan: The patient was seen and examined by Dr. Downs. We'll plan for a recheck MRI in one month and a follow-up visit following the study. She'll be having a biopsy of the axilla tomorrow we will review pathology. Continue follow-up with medical oncology and her primary care physician. She may call our office if she has any questions or concerns in the interim. Assessment & Plan (Attending) ADDENDUM: I agree with note created by Xochitl Sherman PA-C. I reviewed the patient's chart and information with her. I have examined and evaluated the patient. I reviewed relevant clinical information and answered the patient's and /or family's questions. OPERATIONAL ASSISTANT Total Time In Follow-Up I spent 20 minutes the need to the patient and performing examination. I spent 15 minutes reviewing information completing this note. [place] Total Time (Attending) In Follow-Up I spent 15 minutes examining and counseling the patient. OPERATIONAL ASSISTANT Copy To Floyd Parrish MD; Nadia Aldana M.D.
== END | disposition home or self-care (01) ==
LOC: C.ONC 14:25
PROVIDERS: ATTEND Physician Assistant Medical
DX: Z08 Encounter for follow-up examination after completed treatment for malignant neoplasm (principal); Z92.3 Personal history of irradiation; Z85.3 Personal history of malignant neoplasm of breast; Z85.118 Personal history of other malignant neoplasm of bronchus and lung

== ENCOUNTER → 2017-04-23 | Outpatient (CLI) | payer OTHER ==
[~2017-04-23] MED LIST changes: -DXM/4 PO; -FLV1 PO; -THIA100T11 PO
--- NOTE | 2017-04-23 13:37 | Discharge Instructions ---
Discharge Instructions Procedure Procedure Date: Apr 23, 2017. Reason for visit: Rt Axillary,Lymphadenopathy,Hx Of Breast Ca. Discharge Discharge Date: Apr 23, 2017. Discharge Diagnosis: Right axillary lymphadenopathy. Hx of breast and lung cancer Instructions Activity Recommendations: No limitations Return to School/Work: no limitations Recommended Home Diet: Resume Previous Diet Provider Instructions: Ultrasound guided fine-needle aspiration of a right axillary lymph node is performed with 3 passes utilizing 25-gauge needles. The procedure was well tolerated and without immediate complication. ACTIVITY RECOMMENDATIONS: * Rest today. * Resume regular activity in one day. MEDICATIONS: * May take Tylenol or Ibuprofen as needed for pain. DIET: * Resume previous diet. SPECIAL CARE INSTRUCTIONS: Call your doctor if: * Temperature above 101 degrees F. * Pain not relieved by pain medicine ordered. * Increased drainage or redness from incision. * Notify your doctor with any questions or concerns. Call your doctor or go to the nearest Emergency Department if you experience: * Increased chest pain or shortness of breath. FOLLOW UP VISIT: Follow-up with Referring Physician as scheduled. Allergies Coded Allergies: Vinegar (Verified Allergy, Severe, ANAPHYLAXIS, 02/05/17) Sulfa Antibiotics (Verified Allergy, Intermediate, HIVES,SWELLING,RASH, ) Latex (Verified Allergy, Mild, rash, 02/05/17) Adhesives (Verified Adverse Reaction, Mild, RASH IRRITATION, 02/05/17) [place] Recommendations: Call your doctor if: * Temperature above 101 degrees * Pain not relieved by pain medicine ordered * There is increased drainage or redness from any incision * You have any unanswered questions or concerns. Your Doctors Instructions noted above were prepared by provider Bryson Moyer. Patient Signature Section: Patient Instructions Signature Page Pricilla Ann Patient (or Guardian) Signature/Date: I have read and understand the instructions given to me by my caregivers. Caregiver/RN/Doctor Signature/Date: The above-named patient and/or guardian has received patient instructions on this date. + Original Patient Signature Page (only) stays with chart. Please make copy for patient.
--- NOTE | 2017-04-23 15:17 | DIAGNOSTIC IMAGING REPORT ---
ULTRASOUND-GUIDED FINE-NEEDLE ASPIRATION RIGHT AXILLARY LYMPH NODE CLINICAL HISTORY: Right axillary lymphadenopathy. History of lung and breast cancer. COMPARISON STUDY: Chest CT dated 03/06/2017. PROCEDURE: The risks, benefits, and alternatives to the procedure were discussed with the patient. Written informed consent was obtained. The patient was placed supine in ultrasound, and the 1.8 x 1.3 x 2.0 cm abnormal lymph node in the right axilla was localized by ultrasound and selected for fine needle aspiration. The right axilla was prepped and draped in the usual sterile fashion. The node was aspirated under ultrasound guidance with 3 passes utilizing 25-gauge needles. Specimens were reviewed by the pathologist in real-time and deemed adequate for diagnosis. The patient tolerated the procedure well and left the department in satisfactory condition. IMPRESSION: Completed fine-needle aspiration of a right axillary lymph node as above. Electronically signed by: Bryson Moyer M.D. 04/23/2017 3:15 PM Dictated Date/Time: 04/23/2017 3:10 PM
== END | disposition home or self-care (01) ==
LOC: C.ULTR 12:40
PROVIDERS: ATTEND Internal Medicine Hematology & Oncology
DX: C50.411 Malignant neoplasm of upper-outer quadrant of right female breast (principal)

== ENCOUNTER → 2017-05-22 | Outpatient (CLI) | payer OTHER ==
[~2017-05-22] MED LIST changes: +GADAVIST IV PRN
--- NOTE | 2017-05-22 12:53 | DIAGNOSTIC IMAGING REPORT ---
MRI OF THE BRAIN COMBO CLINICAL HISTORY: Metastatic breast cancer. COMPARISON STUDY: MRI of the brain dated 02/23/2017 and 05/22/2016. TECHNIQUE: MRI of the brain was performed utilizing various T1 and T2-weighted sequences in the axial, sagittal, and coronal planes. Contrast-enhanced sequences were acquired following the administration of 5.5 cc of Gadavist. FINDINGS: Brain parenchyma: There is minimal patchy subcortical and periventricular microangiopathic disease. There is no hemorrhage or mass effect. There is no restricted diffusion to suggest acute ischemia. Manzanares-white matter differentiation is preserved. No extra-axial fluid collection is seen. The cerebellar tonsils are normal in configuration. A 6 mm enhancing lesion in the right frontal lobe as seen on image #15. An additional 4 mm enhancing nodule seen in the left cerebral hemisphere axial image #7. These have decreased in size from previous. Additional tiny lesions are seen on the 02/23/2017 examination have resolved. No new lesions are identified. Ventricles, sulci, and cisterns: Normal in configuration. Pituitary and sella: Partially empty sella is incidentally noted. Intracranial vasculature: Normal flow voids are maintained at the skull base. Orbits: The bony orbits are grossly intact. Orbital contents are normal in appearance. Sinuses and mastoids: There are large bilateral mastoid effusions. Mild to moderate nodular mucosal thickening is seen in the left maxillary antrum. Trace mucosal thickening is seen in the right maxillary antrum. Trace fluid is seen in the sphenoid sinuses. Calvarium: Unremarkable. Cervical cord: Partially visualized cervical spinal cord is normal in morphology and signal intensity. IMPRESSION: 1. There are 2 small enhancing lesions identified located in the right frontal lobe and the left cerebellar peduncle as above. These are consistent with metastatic disease and have decreased in size from 02/23/2017. 2. Smaller lesions seen on the prior study are no longer apparent. 3. There is no hemorrhage, mass effect, or evidence of acute ischemia. 4. Large mastoid effusions. Electronically signed by: Bryson Moyer M.D. 05/22/2017 12:51 PM Dictated Date/Time: 05/22/2017 12:44 PM
== END | disposition home or self-care (01) ==
LOC: C.MRI 11:48
PROVIDERS: ATTEND Physician Assistant Medical
DX: C34.32 Malignant neoplasm of lower lobe, left bronchus or lung (principal); C50.411 Malignant neoplasm of upper-outer quadrant of right female breast; C79.31 Secondary malignant neoplasm of brain

== ENCOUNTER → 2017-05-30 | Outpatient (CLI) | payer OTHER ==
[~2017-05-30] MED LIST changes: +ATV5 PO; +CHEMO; +DIPH25CA5 PO; +DRGTP12 TD; +DRGTP25 TD; +DXM4 PO; -GADAVIST IV PRN; +HYDR2TAB48 PO; +IPRA-64 INH; +MTH5 PO; +ONDA-170 PO; +OXGN; +OXYC-737 PO; +SNQ10 PO
[2017-05-30 14:05] VITALS: BP 88/58; PULSE 96; TEMP 36.7; O2SAT 91
--- NOTE | 2017-05-30 16:52 | Radiation Oncology Follow-Up ---
Radiation Oncology Follow-Up Date of Visit May 30, 2017. Reason For Visit 2 month follow-up and review of MRI Radiation Completion Date To chest 12/13/16 and to brain on 03/19/17 Diagnosis (1) Breast cancer Status: Acute Onset Date: 03/23/2016 Permanent Comment: Abnormal right breast mammogram 03/23/2016 Status post ultrasound-guided biopsies 04/24/2016 Finding of invasive ductal carcinoma with metastatic carcinoma of the axilla Estrogen receptor negative, progesterone receptor negative, HER-2/maida negative Neoadjuvant chemotherapy with Taxol carboplatin Status post lumpectomy and sentinel lymph node biopsy 01/01/2017 [id number] M0G2 Last Edited By: Xochitl Sherman on Mar 26, 2017 11:02 (2) Small cell lung cancer Status: Acute Onset Date: 05/22/2016 Permanent Comment: Emergency room evaluation for a fall 10/21/[address] showing pulmonary nodules Emergency room visit for a fall 05/08/[address] revealed enlarging nodule of the left lower lobe Status post endoscopic bronchial ultrasound and lymph node biopsies 05/22/2016 revealing small cell carcinoma Right and left L4 nodes, level 7 node, left hilar nodes. Limited stage small cell carcinoma Status post completion of 6 cycles of Taxotere and carboplatin completed 2016 Status post completion of combined radiation 12/13/2016. She received 7000 cGy. Brain MRI - 02/23/17 - New brain metastasis Status post completion of whole brain radiation therapy 03/19/2017. She received 3000 cGy Last Edited By: Xochitl Sherman on Mar 26, 2017 10:49 History of Present Illness Ms. Ann was recently diagnosed with both locally advanced breast cancer and limited stage small cell lung carcinoma. Initially, the patient underwent bilateral digital screening mammograms on 03/23 which revealed a new 21 mm mass in the right breast the 10 o'clock position in a new 9 mm lymph node in the right axillary tail. The patient was brought back and underwent an ultrasound of the right breast on 04/12/2016 which confirmed a irregular solid vascular mass measuring 2.17 m in the greatest dimension in the 10 o'clock position; additional sonographic evaluation demonstrated 2 enlarged morphologically abnormal lymph nodes measuring 3.2 cm and 1.8 cm. The patient underwent ultrasound-guided biopsies of both the right breast mass and right axillary lymph node on 04/24/2016. The right breast mass came back consistent with invasive ductal carcinoma that was grade 2 and was estrogen receptor negative, progesterone receptor negative and HER-2 negative; the right axillary lymph node came back consistent with moderately differentiated adenocarcinoma. Shortly afterwards, the patient did undergo a chest x-ray for dyspnea and cough on 05/12/2016 which did reveal a left infrahilar nodular density. The patient subsequently underwent a CT of the chest on 05/08/2016 which revealed: "1. 2.4 cm mass within the upper outer quadrant of the right breast suggestive of a primary breast carcinoma. This could be correlated with biopsy results. Right axillary, precarinal and AP window lymph nodes highly suggestive of prosper spread of disease. 2. Increase in size of a 1.4 cm left lower lobe nodule. This is neoplastic and metastatic disease is favored." To complete staging workup, she did have a CT of the abdomen/pelvis on 05/19/2016 which revealed no evidence of distant metastatic disease. She did have a bone scan on 05/19/2016 which did reveal: " 1. An intense focus of radiotracer uptake at the junction of the right acetabulum/superior pubic ramus. No corresponding abnormality by CT. Regardless, this is highly suspicious for a metastatic focus. 2. Linear area of radiotracer uptake along the inferior endplate of T12 corresponding to the compression fracture." She did have x-rays of the hip, elbow and ribs on 05/20/2016 which showed no evidence of corresponding metastatic disease. She did have an MRI of the brain on 05/22/2016 which did not reveal any evidence of distant metastatic disease. The patient subsequently underwent a bronchoscopy/EBUS by Dr. Brenden Parr on 05/22/2016. Dr. Aldana did biopsy multiple lymph nodes including station 7, station L4, station R4 and station R10 which were all positive for metastatic small cell lung carcinoma. The patient went on to have a PET/CT scan on 06/07/2016 which revealed: "IMPRESSION: 1. FDG avid right axillary/ subpectoral, mediastinal, and left hilar lymphadenopathy consistent with metastatic disease. These are similar in size compared to the recent CT examinations. 2. No change in 1.5 cm FDG avid metastatic nodule within the left lower lobe. 3. Slight increase in size in the 2.7 cm FDG avid right breast mass. 4. No bony metastatic disease identified." The patient has been seen in consultation by Dr. Floyd Parrish from medical oncology. Dr. Parrish has recommended neoadjuvant chemotherapy targeted to both her small cell lung carcinoma and breast cancer followed by radiation therapy for treatment of her limited stage small cell lung cancer followed by surgery/radiation therapy for management of her breast cancer. The patient has received carboplatin and Taxotere underneath the supervision of Dr. Floyd Parrish. The patient did have a a restaging CT chest on 08/17/2016 which did reveal: "IMPRESSION: 1. Considerable improvement in the appearance of the chest. 2. All pathologic findings have diminished with the right axillary dominant node dimension decreasing from 3.6 cm to 2.4 cm. 3. Nodular density left lung base has diminished from 1.4 cm to 7 mm. 4. No evidence for new interval or progressive disease." We are now seeing the patient in consultation discuss the role of radiation therapy. Overall, the patient is doing relatively well. She states her energy, appetite and weight are all stable. She denies any fevers, chills or night sweats. She denies any hemoptysis. She denies any productive cough. She denies any focal neurologic deficits. She has no other complaints. Her case was presented at tumor board and was recommended that we proceed with treatment to the chest first and then Treatment for the breast cancer. She completed combined radiation and chemotherapy for the chest on 12/13/2016. She received 7000 cGy She recovered well from the combined radiation and chemotherapy for the small cell carcinoma the lung. She had mild radiation esophagitis this resolved without difficulty. She underwent a lumpectomy and sentinel lymph node biopsy on . This showed a residual 0.4 cm mass. It was unifocal. The grade was 2. The distance to closest margin was 1.5. 8 matter lymph nodes were found and all contain metastatic carcinoma. There was extranodal extension. The largest metastasis was 4.0 x 3.0 x 1.6 cm. The estrogen receptor was negative, progesterone weakly, focally NE positive. The HER-2/maida was negative. She is steadily recuperating from her surgery. She does have a seroma in the upper outer quadrant of the breast. More recently, the patient did have an MRI of the brain completed on 02/23/2017 revealed interval development of a total of 5 lesions within the brain consistent with metastatic disease. We been asked to evaluate the patient for consideration of palliative whole brain radiation therapy. Currently, the patient does have headaches and does note some black spots in her vision. She denies any seizures or any other focal neurologic deficits. Status post whole brain radiation therapy completed 03/19/2017. She received 3000 cGy. Interim History She previously had resolution of the recurrent headache. She is here today to review her most recent MRI of the brain. She unfortunately has developed some new problems. She was started on Xeloda after completion of the recheck axillary biopsy. This unfortunately caused nausea, vomiting, diarrhea, rhinorrhea, fatigue and severe mouth sores. She had a poor appetite and weight loss. She took the medication for 10 days. She has noted with her treatment that the breast mass has become smaller and size. She has developed severe pain in her right shoulder. There is a constant pain level IV. This can become up to 10 with movement. She has to hold her arm at her side. She is unable to pressure teeth or comb her hair with the right arm. This has occurred over the past week. Allergies Coded Allergies: Vinegar (Verified Allergy, Severe, ANAPHYLAXIS, 02/05/17) Sulfa Antibiotics (Verified Allergy, Intermediate, HIVES,SWELLING,RASH, ) Latex (Verified Allergy, Mild, rash, 02/05/17) Adhesives (Verified Adverse Reaction, Mild, RASH IRRITATION, 02/05/17) Home Medications Scheduled Aspirin (Aspirin Ec), 81 MG PO QPM Citalopram (Citalopram Hydrobromide), 40 MG PO QAM Multivitamin (Multivitamin), 1 TAB PO QAM Saline (Saline Nasal Wellfleet ), 1-2 SPRY GISSELLE PRN Scheduled PRN Fluticasone Prop/Salmeterol (Advair Diskus 250/50 60 Dose), 1 PUFF INH BID PRN for SOB/Wheezing Fluticasone Propionate (Nasal) (Flonase Allergy Relief), 2 SPRAYS GISSELLE BID PRN for Nasal Congestion Ipratropium-Albuterol (Combivent Respimat), 1 PUFFS INH Q4 PRN for Shortness of Breath Ondansetron Hcl (Zofran), 8 MG PO TID PRN for Nausea Review of Systems Gastrointestinal: Symptoms: Nausea, Vomiting, Diarrhea GI Comments: Nausea much less since stopping xeloda;Rare emesis;Diarrhea persists Oral: Symptoms: No Problems Other Oral Symptoms: Mouth sores from xeloda have resolved; Respiratory: Symptoms: Dry Cough, Moist Cough, SOB With Exertion Other Respiratory: Reports no change Urinary: Symptoms: WNL Skin: Symptoms: No Problems Breast: Right Upper Arm Measurement: 27.5 Right Mid Arm Measurement: 22.0 Right Wrist Measurement: 15.3 Left Upper Arm Measurement: 27.5 Left Mid Arm Measurement: 21.5 Left Wrist Measurement: 15.0 Arm Dominence: Right Additional Notes: She completed a distress management report and answered "no" 12 questions other than she is concerned about pain. Physical Exam Vital Signs Date Time Temp Pulse Resp B/P (MAP) Pulse Ox O2 Delivery O2 Flow Rate FiO2 05/30/17 14:05 36.7 96 20 88/58 91 ECOG Performance Status: 2 General Appearance: + mild distress Eyes: normal inspection, EOMI ENT: normal ENT inspection, hearing grossly normal Neck: no adenopathy, thyroid normal Respiratory/Chest: no respiratory distress, no accessory muscle use, + decreased breath sounds Breast: There is a palpable mass of the right breast at the 3 o'clock position. This is approximately 1.5 cm in size. It is irregular in mobile. There is no tenderness associated. She does have tenderness of her axilla. There is no enlarged node in the axilla. Cardiovascular: regular rate, rhythm, no gallop, no murmur Abdomen: non tender, soft Extremities: + pertinent finding (she is decreased range of motion of the right shoulder. She is only able to abduct to 90. She has equal and good strength of the upper extremities.) Neurologic/Psychiatric: no motor/sensory deficits, alert, normal mood/affect Skin: warm/dry Pain Management Patient Reports Pain: Yes Pain Management Plan Pain is currently being controlled by limiting motion of the shoulder. She also has been taking [id number] ibuprofen or Tylenol. Imaging Imaging Studies: were reviewed, and pertinent findings noted below Imaging Comments Patient: ANGELIA ANN Address1: [address] [place] [address] Rec: [id number] Address2: Acct ID: [id number] [facility] Zip: [place] [address] Date: 1955 Sex: F Room/Bed: Ref Phy: Nadia Aldana M.D. SC: C.MRI Att Phy: Xochitl Sherman PA-C Report #: [id number] Nati Phy: Nadia Aldana M.D. Test: [facility] Admit Phy: Automatic Thread Winder: RAEANN Interpreting Phy: Bryson Moyer M.D. Diagnosis: METASTIC BRAIN CA, BREAST CA Ordering Phy: Xochitl Sherman PA-C Service Date: 05/22/17 Admit Date: 05/22/17 MNE: [id number] CONF: DICTATED BY: Bryson Moyer M.D.]] CC: Xochitl Sherman PA-C Rao, Ravishankar E. M.D. Endcc: [~ rep ct add3]] MRI OF THE BRAIN COMBO CLINICAL HISTORY: Metastatic breast cancer. COMPARISON STUDY: MRI of the brain dated 02/23/2017 and 05/22/2016. TECHNIQUE: MRI of the brain was performed utilizing various T1 and T2-weighted sequences in the axial, sagittal, and coronal planes. Contrast-enhanced sequences were acquired following the administration of 5.5 cc of Gadavist. FINDINGS: Brain parenchyma: There is minimal patchy subcortical and periventricular microangiopathic disease. There is no hemorrhage or mass effect. There is no restricted diffusion to suggest acute ischemia. Manzanares-white matter differentiation is preserved. No extra-axial fluid collection is seen. The cerebellar tonsils are normal in configuration. A 6 mm enhancing lesion in the right frontal lobe as seen on image #15. An additional 4 mm enhancing nodule seen in the left cerebral hemisphere axial image #7. These have decreased in size from previous. Additional tiny lesions are seen on the 02/23/2017 examination have resolved. No new lesions are identified. Ventricles, sulci, and cisterns: Normal in configuration. Pituitary and sella: Partially empty sella is incidentally noted. Intracranial vasculature: Normal flow voids are maintained at the skull base. Orbits: The bony orbits are grossly intact. Orbital contents are normal in appearance. Sinuses and mastoids: There are large bilateral mastoid effusions. Mild to moderate nodular mucosal thickening is seen in the left maxillary antrum. Trace mucosal thickening is seen in the right maxillary antrum. Trace fluid is seen in the sphenoid sinuses. Calvarium: Unremarkable. Cervical cord: Partially visualized cervical spinal cord is normal in morphology and signal intensity. IMPRESSION: 1. There are 2 small enhancing lesions identified located in the right frontal lobe and the left cerebellar peduncle as above. These are consistent with metastatic disease and have decreased in size from 02/23/2017. 2. Smaller lesions seen on the prior study are no longer apparent. 3. There is no hemorrhage, mass effect, or evidence of acute ischemia. 4. Large mastoid effusions. Electronically signed by: Bryson Moyer M.D. 05/22/2017 12:51 PM Dictated Date/Time: 05/22/2017 12:44 PM Assessment & Plan Plan: Patient was also seen today by Dr. Rust. Due to the right shoulder discomfort an MRI has been ordered. She'll be given a pretreatment due to her concerns about possible allergy. We reviewed the MRI which has shown improvement. Stool for C. difficile was ordered. If this is negative would recommend Imodium. If this is positive we'll review with Dr. Parrish. We'll have her return in 3 months. We'll plan for recheck MRI prior to that visit. She'll be notified as the results of the MRI. If she has issues that can be helped with radiation that will be further discussed. Total Time In Follow-Up I spent 25 minutes the need to the patient performing examination. I spent 15 minutes reviewing information in completing this note. Copy To Floyd Parrish MD; Russel Aldana M.D.
== END | disposition home or self-care (01) ==
LOC: C.ONC 13:48
PROVIDERS: ATTEND Physician Assistant Medical
DX: Z08 Encounter for follow-up examination after completed treatment for malignant neoplasm (principal); Z92.3 Personal history of irradiation; Z85.3 Personal history of malignant neoplasm of breast; Z85.118 Personal history of other malignant neoplasm of bronchus and lung

== ENCOUNTER → 2017-06-01 | Outpatient (CLI) | payer OTHER ==
[~2017-06-01] MED LIST changes: -ATV5 PO; -CHEMO; -DIPH25CA5 PO; -DRGTP12 TD; -DRGTP25 TD; -DXM4 PO; -HYDR2TAB48 PO; -IPRA-64 INH; -MTH5 PO; -ONDA-170 PO; +ONDA8TAB6 PO; -OXGN; -OXYC-737 PO; -SNQ10 PO; -VALA500T60 PO
== END | disposition home or self-care (01) ==
LOC: C.LAB 14:51
PROVIDERS: ATTEND Physician Assistant Medical
DX: R19.7 Diarrhea, unspecified (principal)

== ENCOUNTER → 2017-06-07 | Outpatient (CLI) | payer OTHER ==
[~2017-06-07] MED LIST changes: +ATV5 PO; +CHEMO; +DIPH25CA5 PO; +DRGTP12 TD; +DRGTP25 TD; +DXM4 PO; +GADAVIST IV PRN; +HYDR2TAB48 PO; +IPRASOL4 INH; +MTH5 PO; +OXGN; +OXYC1TAB3 PO; +SNQ10 PO
--- NOTE | 2017-06-07 16:47 | DIAGNOSTIC IMAGING REPORT ---
UPPER EXT JOINT COMBO CLINICAL HISTORY: 61 years-old Female presenting with C34.32,C50.411,C79.31,M25.511, right shoulder pain for 2 weeks with decreased range of motion, history of breast cancer with metastatic disease, pain radiating down the arm. TECHNIQUE: Multisequence, multiplanar MR imaging of the right shoulder was performed before and after the administration of intravenous contrast. IV contrast: 5 mL of Gadavist. COMPARISON: Plain radiographs from 06/14/2014. FINDINGS: Localizer images: Dependent right lung opacity (series 1 image 1). Image quality is degraded by motion artifact limiting diagnostic sensitivity. Diffuse bony edema of the humeral head and proximal metaphysis. Heterogeneity of signal intensity in the subchondral portion of the humeral head, which likely corresponds to residual normal fat. Postcontrast imaging demonstrates enhancement of the humeral head. No significant bony edema of the bony glenoid. Articular cartilage thinning suggested at the inferior aspect of the glenoid and inferior humeral head. Prominent enthesophyte at the greater tuberosity. Motion artifact limits evaluation of the labrum. Within this limitation, linear fluid signal intensity at the anterior inferior labrum at 5-6 o'clock concerning for tear (Series 8 image 10). Laminar intrasubstance fluid signal intensity in the supraspinatus at the myotendinous junction extending to the critical zone consistent with laminar type tear. This may extend to the undersurface (series 8 image 12). Linear fluid signal intensity at the insertional fibers of the infraspinatus consistent with at least partial undersurface tear if not full-thickness tear. Teres minor tendon intact. Subscapularis tendon demonstrates fluid signal intensity at the proximal insertional fibers with mild thickening suggesting tendinosis versus minimal partial undersurface tear. Long head of the biceps tendon well seated within the intertubercular groove. Biceps labral complex intact. Short head of the biceps tendon intact. Fluid is noted in the subacromial subdeltoid bursa in addition to small shoulder joint effusion. Synovitis evidenced by thickening and intense enhancement on postcontrast imaging. Degenerative changes of the acromioclavicular joint. IMPRESSION: 1. Extensive marrow signal abnormality of the humeral head and proximal metaphysis. Differential considerations include metastatic disease given the clinical history as well as osteomyelitis. 2. Evidence of synovitis with shoulder effusion. Given the extensive bony edema in the humerus this further raises concern for osteomyelitis/septic arthritis. No apparent involvement of the osseous glenoid. 3. Partial undersurface tear versus laminar type tear of the supraspinatus extending from the myotendinous junction to the ankle zone. 4. At least partial undersurface tear is not full-thickness tear of the infraspinatus at the insertional fibers. 5. Tendinosis versus minimal partial undersurface tear of the subscapularis tendon. 6. Possible inferior labral tear. However, overall the examination is degraded by motion artifact limiting evaluation. Electronically signed by: Ethan Benitez M.D. 06/07/2017 4:46 PM Dictated Date/Time: 06/07/2017 4:37 PM
== END | disposition home or self-care (01) ==
LOC: C.MRI 15:05
PROVIDERS: ATTEND Physician Assistant Medical
DX: C34.32 Malignant neoplasm of lower lobe, left bronchus or lung (principal); C50.411 Malignant neoplasm of upper-outer quadrant of right female breast; C79.31 Secondary malignant neoplasm of brain; M25.511 Pain in right shoulder; M65.811 Other synovitis and tenosynovitis, right shoulder

== ENCOUNTER 2017-06-14 22:41 | Inpatient (IN) | payer OTHER ==
[~2017-06-14] VITALS: Ht 160 cm; Wt 51.9 kg
[~2017-06-14 22:41] MED LIST changes: -ATV5 PO; -DRGTP25 TD; -DXM4 PO; -GADAVIST IV PRN; -HYDR2TAB48 PO; -IPRASOL4 INH; -MTH5 PO; -OXGN; -SNQ10 PO
[2017-06-14] MEDS ORDERED: LEVAQUIN 750MG / 150ML D5W IV STA (22:52)
[2017-06-14] MEDS ORDERED: MoRPHine SULFATE 4 MG/ML 1 ML CARP\\VIAL IV STA (22:52)
[2017-06-14] MEDS ORDERED: CEFTRIAXONE SOD INJ 1 GM ADDVIAL IV STA (22:52)
[2017-06-14] MEDS ORDERED: ALBUT/IPRATROP 3MG/0.5MG NEB 3 ML VIAL INH STA (22:52)
[2017-06-14] MEDS ORDERED: METHYLPREDNISOLONE 125 MG VIAL IV STA (22:52)
--- NOTE | 2017-06-14 23:09 | EMERGENCY ROOM VISIT NOTE ---
History Report prepared by Vahid: Maira Reyes Under the Supervision of: Dr. Randall Soria D.O. First contact with patient: 22:42 Chief Complaint: SHORTNESS OF BREATH Stated Complaint: SHORT OF BREATH History of Present Illness The patient is a 61 year old female who presents to the Emergency Room with complaints of worsening shortness of breath starting this evening. The patient states that she has breast cancer that spread to her lungs, lymph nodes, and brain. She states that she was on oral chemo, but didn't handle it well. She reports that she has been having difficulty with her right arm due to the cancer worsening in her lymph nodes. She states that she has been seeing pain management. The patient reports that yesterday she went to get markers done and was found that it had spread greatly. She states that due to this, she had radiation done today. She states that this is her first dose in weeks. She states that her sister drove her to her appointment and smoked in the car with her even though she asked her not to. The patient notes that she started a new pain patch yesterday morning and a new pain pill this evening. She reports that she is unsure if she is short of breath because this is a reaction to her new pain medication, the radiation, or being around her smoking sister. The patient complains of a cough that developed with the shortness of breath and a rash that she thinks is related to her radiation treatment. The patient denies being on oxygen at home. She notes that she was to be admitted to the hospital recently, but had been approved to stay out to visit her brother who is flying in from [place] tomorrow. EMS reports that they gave the patient Albuterol and a DuoNeb. Source of History: patient, EMS Onset: this evening Position: other (global) Quality: other (global) Timing: worsening Associated Symptoms: + cough, + rash Note: The patient complains of right arm pain. Review of Systems See HPI for pertinent positives & negatives. A total of 10 systems reviewed and were otherwise negative. Past Medical & Surgical Medical Problems: (1) Acute anxiety (2) Alcohol abuse (3) Alcohol abuse (4) Alcohol abuse (5) Alcohol intoxication (6) Alcohol intoxication (7) Alcohol withdrawal (8) Alcoholism (9) Anxiety (10) Anxiety (11) COPD exacerbation (12) COPD exacerbation (13) Depression (14) Dizzy (15) Fall (16) Fibromyalgia (17) Head trauma (18) Hepatitis (19) Hypokalemia (20) Hyponatremia (21) Hypoxia (22) Malnourished (23) Nasal fracture (24) PTSD (post-traumatic stress disorder) (25) Right shoulder injury (26) Weakness Surgical Problems: (1) History of appendectomy (2) History of hysterectomy (3) Previous section Family History FH: cancer FH: heart disease Social History Smoking Status: Former Smoker Alcohol Use: heavy Drug Use: none Marital Status: Housing Status: lives alone Occupation Status: employed Current/Historical Medications Scheduled Citalopram (Citalopram Hydrobromide), 40 MG PO QAM Fentanyl (Fentanyl), 12 MCG TD CQ72HR Hydromorphone Hcl (Dilaudid), 2 MG PO UD/PRN Multivitamin (Multivitamin), 1 TAB PO QAM Saline (Saline Nasal [place] [facility]), 1-2 SPRY GISSELLE PRN [IV chemo], weekly Scheduled PRN Diphenhydramine Hcl (Benadryl), 25 MG PO Q4H PRN for hives Fluticasone Prop/Salmeterol (Advair Diskus 250/50 60 Dose), 1 PUFF INH BID PRN for SOB/Wheezing Fluticasone Propionate (Nasal) (Flonase Allergy Relief), 2 SPRAYS GISSELLE BID PRN for Nasal Congestion Ipratropium-Albuterol (Combivent Respimat), 1 PUFFS INH Q4 PRN for Shortness of Breath Ondansetron Hcl (Zofran), 8 MG PO TID PRN for Nausea Allergies Coded Allergies: Vinegar (Verified Allergy, Severe, ANAPHYLAXIS, 02/05/17) Sulfa Antibiotics (Verified Allergy, Intermediate, HIVES,SWELLING,RASH, ) Latex (Verified Allergy, Mild, rash, 02/05/17) Adhesives (Verified Adverse Reaction, Mild, RASH IRRITATION, 02/05/17) Physical Exam Vital Signs Date Time Temp Pulse Resp B/P (MAP) Pulse Ox O2 Delivery O2 Flow Rate FiO2 06/15/17 01:21 90 Oxymask 10.0 06/15/17 01:19 101 20 89/56 88 Oxymask 8.0 06/15/17 00:23 105 24 113/66 91 Mask 7.0 06/14/17 23:13 90 Nasal Cannula 4.0 06/14/17 23:00 104 20 104/61 90 Nasal Cannula 5.0 06/14/17 22:50 112 06/14/17 22:48 84 Room Air 06/14/17 22:48 36.4 111 28 95/64 84 Room Air 06/14/17 22:48 84 Room Air Physical Exam CONSTITUTIONAL/VITAL SIGNS: Reviewed / noted above. GENERAL: Non-toxic in appearance. INTEGUMENTARY: Warm, dry, and [place]. HEAD: Normocephalic. EYES: without scleral icterus or trauma. ENT/OROPHARYNX: clear and moist. LYMPHADENOPATHY/NECK: Is supple without lymphadenopathy or meningismus. RESPIRATORY: Diminished breath sounds bilaterally. Occasional cough. CARDIOVASCULAR: Regular rate and rhythm. GI/ABDOMEN: Soft and nontender. No organomegaly or pulsatile mass. No rebound or guarding. Normal bowel sounds. EXTREMITIES: Warm and well perfused. BACK: No CVA tenderness. NEUROLOGICAL: Intact without focal deficits. PSYCHIATRIC: normal affect. MUSCULOSKELETAL: Normally developed with good muscle tone. Medical Decision & Procedures ER Provider Diagnostic Interpretation: Radiology results as stated below per my review and radiologist interpretation: Chest X-Ray: The results were interpreted by me. Left lower lobe infiltrate. No pneumothorax. Laboratory Results 06/14/17 23:50 Red Blood Count 3.46, Mean Corpuscular Volume 106.1, Mean Corpuscular Hemoglobin 35.8, Mean Corpuscular Hemoglobin Concent 33.8, Mean Platelet Volume 9.2, Neutrophils (%) (Auto) 82.2, Lymphocytes (%) (Auto) 8.1, Monocytes (%) ( Auto) 8.5, Eosinophils (%) (Auto) 0.5, Basophils (%) (Auto) 0.2, Neutrophils # ( Auto) 4.57, Lymphocytes # (Auto) 0.45, Monocytes # (Auto) 0.47, Eosinophils # ( Auto) 0.03, Basophils # (Auto) 0.01 06/14/17 23:50 Test 06/14/17 23:50 White Blood Count 5.56 K/uL (4.8-10.8) Red Blood Count 3.46 M/uL (4.2-5.4) Hemoglobin 12.4 g/dL (12.0-16.0) Hematocrit 36.7 % (37-47) Mean Corpuscular Volume 106.1 fL (80-100) Mean Corpuscular Hemoglobin 35.8 pg (25-34) Mean Corpuscular Hemoglobin Concent 33.8 g/dl (32-36) Platelet Count 149 K/uL (130-400) Mean Platelet Volume 9.2 fL (7.4-10.4) Neutrophils (%) (Auto) 82.2 % Lymphocytes (%) (Auto) 8.1 % Monocytes (%) (Auto) 8.5 % Eosinophils (%) (Auto) 0.5 % Basophils (%) (Auto) 0.2 % Neutrophils # (Auto) 4.57 K/uL (1.4-6.5) Lymphocytes # (Auto) 0.45 K/uL (1.2-3.4) Monocytes # (Auto) 0.47 K/uL (0.11-0.59) Eosinophils # (Auto) 0.03 K/uL (0-0.5) Basophils # (Auto) 0.01 K/uL (0-0.2) RDW Standard Deviation 59.0 fL (36.4-46.3) RDW Coefficient of Variation 15.4 % (11.5-14.5) Immature Granulocyte % (Auto) 0.5 % Immature Granulocyte # (Auto) 0.03 K/uL (0.00-0.02) Prothrombin Time 9.9 SECONDS (9.0-12.0) Prothromb Time International Ratio 0.9 (0.9-1.1) Activated Partial Thromboplast Time 25.0 SECONDS (21.0-31.0) Partial Thromboplastin Ratio 1.0 Anion Gap 9.0 mmol/L (3-11) Est Creatinine Clear Calc Drug Dose 92.8 ml/min Estimated GFR () 121.1 Estimated GFR (Non- 104.5 BUN/Creatinine Ratio 18.0 (10-20) Calcium Level 8.6 mg/dl (8.5-10.1) Total Bilirubin 0.7 mg/dl (0.2-1) Aspartate Amino Transf (AST/SGOT) 45 U/L (15-37) Alanine Aminotransferase (ALT/SGPT) 20 U/L (12-78) Alkaline Phosphatase 75 U/L (45-117) Total Creatine Kinase 108 U/L (26-192) Creatine Kinase MB 2.9 ng/ml (0.5-3.6) Creatine Kinase MB Ratio 2.7 (0-3.0) Troponin I < 0.015 ng/ml (0-0.045) Total Protein 6.2 gm/dl (6.4-8.2) Albumin 3.0 gm/dl (3.4-5.0) Globulin 3.2 gm/dl (2.5-4.0) Albumin/Globulin Ratio 0.9 (0.9-2) Influenza Type A (RT-PCR) Neg for Influ A (NEG) Influenza Type A Antigen Neg for Influ A (NEG) Influenza Type B Antigen Neg for Influ B (NEG) Influenza Type B (RT-PCR) Neg for Influ B (NEG) Laboratory results as stated above per my review. Medications Administered Medications (Trade) Dose Ordered Sig/Gaudencio Route Start Time Stop Time Status Last Admin Dose Admin Albuterol/ Ipratropium (Duoneb) 3 ml NOW STAT INH 06/14/17 22:52 06/14/17 22:56 DC 06/14/17 23:26 3 ML Ceftriaxone Sodium (Rocephin Inj) 1 gm NOW STAT IV 06/14/17 22:52 06/14/17 22:56 DC 06/15/17 00:20 1 GM Levofloxacin (Levaquin / D5W) 750 mg NOW STAT IV 06/14/17 22:52 06/14/17 22:56 DC 06/15/17 01:17 750 MG Methylprednisolone Sodium Succinate (Solu-Medrol IV) 125 mg NOW STAT IV 06/14/17 22:52 06/14/17 22:56 DC 06/14/17 23:26 125 MG Morphine Sulfate (MoRPHine SULFATE INJ) 4 mg NOW STAT IV 06/14/17 22:52 06/14/17 22:56 DC 06/14/17 23:27 4 MG Sodium Chloride 500 ml @ 999 mls/hr Q31M STAT IV 06/15/17 01:26 06/15/17 01:56 DC 06/15/17 01:33 999 MLS/HR ECG Indication: SOB/dyspnea Rate (beats per minute): 102 Rhythm: sinus tachycardia Findings: no acute ischemic change, no ectopy ED Course 2244: Previous medical records were reviewed. The patient was evaluated in room B5. A complete history and physical examination was performed. 2252: Ordered Morphine Sulfate 4 mg IV, Solu-Medrol IV 125 mg IV, Levofloxacin 750 mg IV, Rocephin Inj 1 gm IV, Duoneb 3 ml INH. 0126: Ordered NSS 500 ml @ 999 mls/hr IV. 0141: Discussed the patient's case with Dr. Echo Gardner. The patient will be evaluated for further treatment and disposition. Medical Decision the differential was considered includes acute myocardial infarction, acute coronary syndrome, myocarditis, pericarditis, pericardial effusions /tamponad, esophageal perforation, pulmonary embolism, pneumonia, pneumothorax, cardiomyopathy, congestive heart, anemia , COPD/asthma exacerbation. This is a 61-year-old female who presents to the ED with a chief complaint of shortness of breath and cough. The patient has a history of metastatic breast cancer to the lung and brain. She reports that she is on oral chemotherapy. The patient reports a new cough that started yesterday. The patient denies any fevers or vomiting. She does not have any chest pains. Her vital signs reveal hypoxia on room air. She is currently not on home oxygen. The lungs are for the most part clear but somewhat diminished. She has an occasional cough during the interview. It is nonproductive. This cough is new. CBC is unremarkable, chemistry panel was unremarkable, troponin is negative. EKG shows a sinus rhythm at a rate of 102 without acute injury or ectopy. Chest x- ray reveals a left lower lobe infiltrate. CT scan of the chest and is pending. Patient is being admitted by the hospitalist service. She was treated with IV fluids, DuoNeb treatment, IV antibiotics and IV Solu-Medrol. Medication Reconcilliation Current Medication List: was personally reviewed by me Blood Pressure Screening Patient's blood pressure: Normal blood pressure Will be further monitored by hospitalist. Consults Time Called: 126 Consulting Physician: Dr. Echo Gardner Returned Call: [phone] Discussed the patient's case with Dr. Echo Gardner. The patient will be evaluated for further treatment and disposition. Impression Primary Impression: Hypoxia Additional Impression: Pneumonia Scribe Attestation The scribe's documentation has been prepared under my direction and personally reviewed by me in its entirety. I confirm that the note above accurately reflects all work, treatment, procedures, and medical decision making performed by me. Departure Information Dispostion Being Evaluated By Hospitalist Referrals Nadia Aldana M.D. (PCP) Patient Instructions My [facility] Problem Qualifiers
[2017-06-15] VITALS (12 sets, daily range): BP systolic 95–121; BP diastolic 59–75; PULSE 87–108; TEMP 36.3–36.9; O2SAT 89–97; Ht 160 cm; Wt 51.9 kg
[2017-06-15 00:05] LABS: BASO % 0.2 %; BASO ABS # 0.01 K/uL (0-0.2); EOS % 0.5 %; EOS ABS # 0.03 K/uL (0-0.5); HEMATOCRIT 36.7 % (37-47); HEMOGLOBIN 12.4 g/dL (12.0-16.0); IG# 0.03 K/uL (0.00-0.02); LYMPH % 8.1 %; LYMPH ABS # 0.45 K/uL (1.2-3.4); MEAN CELL VOLUME 106.1 fL (80-100); MEAN CORPUSCULAR HEMOGLOBIN 35.8 pg (25-34); MEAN CORPUSCULAR HGB CONC 33.8 g/dl (32-36); MEAN PLATELET VOLUME 9.2 fL (7.4-10.4); MONO % 8.5 %; MONO ABS # 0.47 K/uL (0.11-0.59); NEUT % 82.2 %; NEUT ABS # 4.57 K/uL (1.4-6.5); PLATELET COUNT 149 K/uL (130-400); RED CELL DISTRIBUTION WIDTH CV 15.4 % (11.5-14.5); WHITE BLOOD COUNT 5.56 K/uL (4.8-10.8)
[2017-06-15 00:21] LABS: INR 0.9 (0.9-1.1)
[2017-06-15 00:26] LABS: ALT/SGPT 20 U/L (12-78); AST/SGOT 45 U/L (15-37); BLOOD UREA NITROGEN 9 mg/dl (7-18); CALCIUM 8.6 mg/dl (8.5-10.1); CARBON DIOXIDE 27 mmol/L (21-32); CREATININE 0.51 mg/dl (0.60-1.20); GLUCOSE 114 mg/dl (70-99); POTASSIUM 3.5 mmol/L (3.5-5.1); SODIUM 134 mmol/L (136-145)
[2017-06-15] MEDS ORDERED: HYDR2TAB48 PO (00:27)
[2017-06-15 00:31] LABS: ALKALINE PHOSPHATASE 75 U/L (45-117); CKMB 2.9 ng/ml (0.5-3.6); TOTAL PROTEIN 6.2 gm/dl (6.4-8.2)
[2017-06-15 00:53] LABS: INFLUENZA B ANTIGEN Neg for Influ B (NEG)
[2017-06-15] MEDS ORDERED: SODIUM CHLORIDE 0.9% 500ML 500 ML IV STA (01:26)
[2017-06-15] MEDS ORDERED: OPTIRAY 320 IV PRN (01:30)
[2017-06-15 01:57] LABS: INFLUENZA A PCR Neg for Influ A (NEG); INFLUENZA B PCR Neg for Influ B (NEG)
[2017-06-15] MEDS ORDERED: SODIUM CHLORIDE 0.65% NA SOLN 45 ML (OCEAN) NAE PRN (02:00)
[2017-06-15] MEDS ORDERED: ACETAMINOPHEN 325 MG TAB PO PRN (02:00)
[2017-06-15] MEDS ORDERED: ALUMINUM/MAGNESIUM/SIMETH (MAALOX MAX) 30 ML UDC PO PRN (02:00)
[2017-06-15] MEDS ORDERED: FLUTICASONE PROPIONATE NA SPR 16 GM BTL NAE PRN (02:00)
[2017-06-15] MEDS ORDERED: MAGNESIUM HYDROXIDE SUSP 30 ML UDC PO PRN (02:00)
[2017-06-15] MEDS ORDERED: ONDANSETRON 8 MG TAB PO PRN (02:00)
[2017-06-15] MEDS ORDERED: POLYETHYLENE (MIRALAX) 17 GM PACK PO PRN (02:00)
[2017-06-15] MEDS ORDERED: FLUTICASONE/SALMETEROL 250/50 (ADVAIR) 14 PUFF/1 INHALER INH PRN (02:00)
[2017-06-15] MEDS ORDERED: NITROGLYCERIN 0.4 MG SL PER TAB CHARGE SL PRN (02:00)
--- NOTE | 2017-06-15 02:34 | History and Physical ---
History & Physical Date & Time of Service: Jun 15, 2017 at 02:11 Chief Complaint: Short Of Breath Primary Care Physician: Nadia Aldana M.D. History of Present Illness Source: patient, hospital records This is a 61 y/o F with a h/o metastatic breast cancer who presents with worsening shortness of breath that started earlier today. She has mets to her lungs, lymph nodes and brain. The patient is unable to provide complete history due to dry mouth. She reports that she had radiation done today and drove in a car with her sister who was smoking in the car. This started aggravating her breathing. She is not on Oxygen at home. She denies chest pain. Past Medical/Surgical History Medical Problems: (1) Acute anxiety Status: Resolved (2) Alcohol abuse Status: Chronic (3) Alcohol abuse Status: Resolved (4) Alcohol abuse Status: Resolved (5) Alcohol intoxication Status: Resolved (6) Alcohol intoxication Status: Resolved (7) Alcohol withdrawal Status: Resolved (8) Alcoholism Status: Resolved (9) Anxiety Status: Chronic (10) Anxiety Status: Resolved (11) COPD exacerbation Status: Resolved (12) COPD exacerbation Status: Resolved (13) Depression Status: Chronic (14) Dizzy Status: Resolved (15) Fall Status: Resolved (16) Fibromyalgia Status: Chronic (17) Head trauma Status: Resolved (18) Hepatitis Status: Chronic (19) Hypokalemia Status: Resolved (20) Hyponatremia Status: Resolved (21) Hypoxia Status: Resolved (22) Malnourished Status: Chronic (23) Nasal fracture Status: Resolved (24) PTSD (post-traumatic stress disorder) Status: Chronic (25) Right shoulder injury Status: Resolved Family History FH: cancer FH: heart disease Social History Smoking Status: Former Smoker Smokeless Tobacco Use: No Alcohol Use: occasionally Drug Use: none Marital Status: Housing status: lives alone Occupational Status: employed Immunizations History of Influenza Vaccine: Yes History of Tetanus Vaccine?: Yes History of Pneumococcal: Yes Pneumococcal Date: Jun 26, 2009 History of Hepatitis B Vaccine: No Multi-Drug Resistant Organisms History of MDRO: No Allergies Coded Allergies: Vinegar (Verified Allergy, Severe, ANAPHYLAXIS, 02/05/17) Sulfa Antibiotics (Verified Allergy, Intermediate, HIVES,SWELLING,RASH, ) Latex (Verified Allergy, Mild, rash, 02/05/17) Adhesives (Verified Adverse Reaction, Mild, RASH IRRITATION, 02/05/17) Home Medications Scheduled Citalopram (Citalopram Hydrobromide), 40 MG PO QAM Fentanyl (Fentanyl), 12 MCG TD CQ72HR Hydromorphone Hcl (Dilaudid), 2 MG PO UD/PRN Multivitamin (Multivitamin), 1 TAB PO QAM Saline (Saline Nasal [place] ), 1-2 SPRY GISSELLE PRN [IV chemo], weekly Scheduled PRN Diphenhydramine Hcl (Benadryl), 25 MG PO Q4H PRN for hives Fluticasone Prop/Salmeterol (Advair Diskus 250/50 60 Dose), 1 PUFF INH BID PRN for SOB/Wheezing Fluticasone Propionate (Nasal) (Flonase Allergy Relief), 2 SPRAYS GISSELLE BID PRN for Nasal Congestion Ipratropium-Albuterol (Combivent Respimat), 1 PUFFS INH Q4 PRN for Shortness of Breath Ondansetron Hcl (Zofran), 8 MG PO TID PRN for Nausea Review of Systems Constitutional: No fever, No chills Respiratory: + cough, + wheezing, + shortness of breath, + dyspnea on exertion , + dyspnea at rest Cardiovascular: No chest pain, No edema Abdomen: No pain, No nausea, No vomiting, No diarrhea Genitourinary - Female: No dysuria, No urinary frequency, No urinary urgency Physical Exam Vital Signs Date Time Temp Pulse Resp B/P (MAP) Pulse Ox O2 Delivery O2 Flow Rate FiO2 06/15/17 01:21 90 Oxymask 10.0 06/15/17 01:19 101 20 89/56 88 Oxymask 8.0 06/15/17 00:23 105 24 113/66 91 Mask 7.0 06/14/17 23:13 90 Nasal Cannula 4.0 06/14/17 23:00 104 20 104/61 90 Nasal Cannula 5.0 06/14/17 22:50 112 06/14/17 22:48 84 Room Air 06/14/17 22:48 36.4 111 28 95/64 84 Room Air 06/14/17 22:48 84 Room Air General Appearance: + mild distress Eyes: PERRL, EOMI Neck: supple, no JVD Respiratory/Chest: + decreased breath sounds, + accessory muscle use, + rhonchi , + wheezing Cardiovascular: + tachycardia Abdomen/GI: normal bowel sounds, non tender, soft Extremities/Musculoskelatal: no calf tenderness, no pedal edema Neurologic/Psych: alert, normal reflexes, oriented x 3 Diagnostics Laboratory Results Results Past 24 Hours Test 06/14/17 23:50 Range/Units White Blood Count 5.56 4.8-10.8 K/uL Red Blood Count 3.46 4.2-5.4 M/uL Hemoglobin 12.4 12.0-16.0 g/dL Hematocrit 36.7 37-47 % Mean Corpuscular Volume 106.1 80-100 fL Mean Corpuscular Hemoglobin 35.8 25-34 pg Mean Corpuscular Hemoglobin Concent 33.8 32-36 g/dl Platelet Count 149 130-400 K/uL Mean Platelet Volume 9.2 7.4-10.4 fL Neutrophils (%) (Auto) 82.2 % Lymphocytes (%) (Auto) 8.1 % Monocytes (%) (Auto) 8.5 % Eosinophils (%) (Auto) 0.5 % Basophils (%) (Auto) 0.2 % Neutrophils # (Auto) 4.57 1.4-6.5 K/uL Lymphocytes # (Auto) 0.45 1.2-3.4 K/uL Monocytes # (Auto) 0.47 0.11-0.59 K/uL Eosinophils # (Auto) 0.03 0-0.5 K/uL Basophils # (Auto) 0.01 0-0.2 K/uL RDW Standard Deviation 59.0 36.4-46.3 fL RDW Coefficient of Variation 15.4 11.5-14.5 % Immature Granulocyte % (Auto) 0.5 % Immature Granulocyte # (Auto) 0.03 0.00-0.02 K/uL Prothrombin Time 9.9 9.0-12.0 SECONDS Prothromb Time International Ratio 0.9 0.9-1.1 Activated Partial Thromboplast Time 25.0 21.0-31.0 SECONDS Partial Thromboplastin Ratio 1.0 Sodium Level 134 136-145 mmol/L Potassium Level 3.5 3.5-5.1 mmol/L Chloride Level 98 98-107 mmol/L Carbon Dioxide Level 27 21-32 mmol/L Anion Gap 9.0 3-11 mmol/L Blood Urea Nitrogen 9 7-18 mg/dl Creatinine 0.51 0.60-1.20 mg/dl Est Creatinine Clear Calc Drug Dose 92.8 ml/min Estimated GFR () 121.1 Estimated GFR (Non- 104.5 BUN/Creatinine Ratio 18.0 10-20 Random Glucose 114 70-99 mg/dl Calcium Level 8.6 8.5-10.1 mg/dl Total Bilirubin 0.7 0.2-1 mg/dl Aspartate Amino Transf (AST/SGOT) 45 15-37 U/L Alanine Aminotransferase (ALT/SGPT) 20 12-78 U/L Alkaline Phosphatase 75 45-117 U/L Total Creatine Kinase 108 26-192 U/L Creatine Kinase MB 2.9 0.5-3.6 ng/ml Creatine Kinase MB Ratio 2.7 0-3.0 Troponin I < 0.015 0-0.045 ng/ml Total Protein 6.2 6.4-8.2 gm/dl Albumin 3.0 3.4-5.0 gm/dl Globulin 3.2 2.5-4.0 gm/dl Albumin/Globulin Ratio 0.9 0.9-2 Influenza Type A (RT-PCR) Neg for Influ A NEG Influenza Type A Antigen Neg for Influ A NEG Influenza Type B Antigen Neg for Influ B NEG Influenza Type B (RT-PCR) Neg for Influ B NEG Microbiology Results 06/15/17 Blood Culture, Received Pending 06/14/17 Blood Culture, Received Pending Impression Assessment and Plan This is a 61 y/o F who presents with worsening shortness of breath. Hypoxic Resp failure 2/2 COPD exacerbation 2/2 possible LLL pneumonia/worsening metastatic dz Levaquin, Rocephin Solu-medrol 80mg q8 Duoneb Bipap pleural effusions noted on CT- shows progression of metastatic disease/hilar adenopathy Metastatic Breast ca mets to lungs consult oncology Pain management DVT proph Lovenox Code Full Attending addendum: I have physically seen this patient, have supervised the medical residents activities, and agree with the H&P unless as otherwise noted. Assessment and Plan: Acute respiratory failure with hypoxia and hypercapnia/COPD exacerbation/left lower lobe pneumonia/worsening metastatic breast cancer-- The patient will be admitted to telemetry for close oxygen monitoring Ceftriaxone 1 g IV daily Levofloxacin 500 mg IV every 24 hours Solu-Medrol 60 mg IV every 8 hours Do nebs every 4 hours while awake and every 2 hours when necessary BiPAP 03/22/60% Metastatic breast cancer-- CT shows progression of metastatic disease Consult oncology Level of Care Telemetry Advanced Directives Existing Advance Directive: No Existing Living Will: No Existing Power of Correctional Guard: No Resuscitation Status FULL RESUSCITATION VTE Prophylaxis VTE Risk Assessment Done? Y/N: Yes Risk Level: High Given or contraindicated: SCD's Social Service Consult Cancer Patient Under [place]
[2017-06-15] MEDS ORDERED: LORAZEPAM 2 MG/ML 1 ML VIAL IV STA (03:37)
[2017-06-15] MEDS ORDERED: NURSING VERBAL MED ORDER ONE (04:00)
[2017-06-15] MEDS ORDERED: SODIUM CHLORIDE 0.9% 1000ML 1,000 ML IV SCH (04:00)
[2017-06-15] MEDS: METHYLPREDNISOLONE IV 80 MG in SYRINGE 0 ML IV SCH ×3 (04:01→15:22)
--- NOTE | 2017-06-15 06:57 | DIAGNOSTIC IMAGING REPORT ---
SINGLE VIEW CHEST CLINICAL HISTORY: Cough and dyspnea. FINDINGS: An AP, portable, upright chest radiograph is compared to study dated 02/05/2017 and correlated with chest CT dated 03/06/2017. The examination is degraded by portable technique and patient rotation. A left subclavian central venous infusion port is unchanged in position. The cardiomediastinal silhouette is unremarkable. There is atherosclerotic calcification of the thoracic aorta. Calcified mediastinal and hilar lymph nodes are observed. Emphysema with chronic interstitial thickening and nodularity is similar to previous. There are pleural effusions with bibasilar airspace opacities. There is no pneumothorax. The skeletal structures are osteopenic. Degenerative change and scoliosis are noted in the thoracic spine. IMPRESSION: 1. Advanced emphysema. 2. There are pleural effusions with bibasilar airspace opacities. This likely represents atelectasis. Correlate clinically for evidence of superimposed pneumonia. Electronically signed by: Bryson Moyer M.D. 06/15/2017 6:56 AM Dictated Date/Time: 06/15/2017 6:54 AM
[2017-06-15] MEDS: ALBUT/IPRATROP 3MG/0.5MG NEB 3 ML VIAL INH SCH ×4 (07:02→19:18)
[2017-06-15] MEDS: CITALOPRAM 40 MG TAB PO SCH (07:42)
[2017-06-15] MEDS: CHECK FENTANYL PATCH PLACEMENT SCH ×3 (07:42→23:38)
[2017-06-15] MEDS: MULTIVITAMIN TAB PO SCH (07:42)
[2017-06-15] MEDS: ENOXAPARIN 40 MG/0.4 ML SYR SC SCH (07:43)
--- NOTE | 2017-06-15 07:48 | DIAGNOSTIC IMAGING REPORT ---
CHEST CTA for PULMONARY ARTERIES CT DOSE: 343.54 mGy.cm HISTORY: Short of breath. TECHNIQUE: Multiaxial CT images of the chest were performed following the intravenous administration of contrast to evaluate the pulmonary arteries. Maximal intensity projection images were also obtained. A dose lowering technique was utilized adhering to the principles of ALARA. COMPARISON STUDY: Chest CT 03/06/2017. FINDINGS: Normal caliber thoracic aorta with no evidence for dissection. Subsegmental pulmonary arteries within the left lower lobe are nondiagnostic due to the motion artifact. Otherwise, no filling defects seen within the visualized pulmonary arteries to suggest pulmonary embolus. Small bilateral pleural effusions have developed in the interval. Increase in size in the hypodense lesions within the liver which now measure up to 2.6 cm. These are consistent with metastatic disease. Calcified mediastinal lymph nodes. Progressive mediastinal and bilateral hilar lymphadenopathy consistent with metastatic disease. Left Port-A-Cath terminates in the superior cavoatrial junction. Skin thickening and subcutaneous edema within the right breast. Mild right axillary lymphadenopathy. 1.2 cm soft tissue nodule within the medial right breast. This is also new and is consistent with a metastatic focus. Right shoulder effusion with a permeative lesion within the right humeral head/neck consistent with metastatic disease. There is associated small pathologic fracture at the greater tuberosity which appears to be old. No pneumothorax. The central airways are patent. Diffuse nodular interstitial thickening with multiple scattered subcentimeter irregular nodules within the lungs. Findings likely represent lymphangitic spread of tumor. Small patchy air sclerosis within the left side of the lower sternum which also favors a metastatic focus. Incidental note is made of a small Zenker's diverticulum. Bilateral lower lobe consolidation, left greater than right favors atelectasis. IMPRESSION: 1. No evidence for pulmonary embolus. 2. Significant progression of metastatic disease within the chest and abdomen as described above. 3. Small bilateral pleural effusions with bibasilar consolidation likely representing atelectasis. However, pneumonia could also have a similar appearance. Electronically signed by: Natanael Rushing M.D. 06/15/2017 7:47 AM Dictated Date/Time: 06/15/2017 7:38 AM
--- NOTE | 2017-06-15 08:26 | Hospitalist Progress Note ---
Hospitalist Progress Note Date of Service Jun 15, 2017. (Linda Johnsno PA-C) Subjective Pt evaluation today including: conversation w/ patient, physical exam, chart review, lab review, review of studies Pain: Moderate, generalized PO Intake: Fair The patient was seen and examined this morning. Pt has Bipap on and states she cant talk much to me. Nurse reports giving Dilaudid 2 mg PO tab and pt has slight improvement in her generalized pain. She has hx of significant pain in the RUE. She was recently seen by pain management yesterday and was started on dilaudid tablets, fentanyl was added to her regimen on 06/13. Constitutional: + fatigue, No fever, No chills, No sweats Respiratory: + problem reported (wearing Bipap), No wheezing, No shortness of breath Cardiovascular: No chest pain, No palpitations Abdomen: No pain, No vomiting Musculoskeletal: + joint pain, + muscle pain Skin: No rash, No itch (Linda Johnson, TIFFANY) Objective Vital Signs Date Time Temp Pulse Resp B/P (MAP) Pulse Ox O2 Delivery O2 Flow Rate FiO2 06/15/17 07:13 36.8 104 24 121/75 (90) 96 50 06/15/17 07:04 102 30 97 BiPAP/CPAP 50 06/15/17 07:02 102 97 50 06/15/17 05:33 99 93 50 06/15/17 03:05 36.9 108 22 108/70 (83) 90 Oxymask 15.0 06/15/17 03:00 Mask 10.0 06/15/17 02:30 103 20 106/67 92 Oxymask 10.0 06/15/17 02:15 100 24 105/71 91 Oxymask 10.0 06/15/17 02:11 97 18 139/72 92 Humidified Oxygen Mask 06/15/17 02:01 139/72 06/15/17 02:00 118 38 87 Oxymask 10.0 06/15/17 01:46 87/47 06/15/17 01:45 98 16 85/52 92 Oxymask 10.0 06/15/17 01:34 95/56 06/15/17 01:30 97 18 89 06/15/17 01:21 90 Oxymask 10.0 06/15/17 01:19 101 20 89/56 88 Oxymask 8.0 06/15/17 00:23 105 24 113/66 91 Mask 7.0 06/14/17 23:13 90 Nasal Cannula 4.0 06/14/17 23:00 104 20 104/61 90 Nasal Cannula 5.0 06/14/17 22:50 112 06/14/17 22:48 84 Room Air 06/14/17 22:48 36.4 111 28 95/64 84 Room Air 06/14/17 22:48 84 Room Air (Linda Johnson PA-C) Physical Exam General Appearance: WD/WN, no apparent distress, + thin, + pertinent finding ( frail, skin pallor, alopecia) Eyes: PERRL, EOMI ENT: hearing grossly normal Neck: no JVD Respiratory/Chest: + pertinent finding (on Bipap, + coarse breath sounds throughout.) Cardiovascular: regular rate, rhythm Abdomen: normal bowel sounds, non tender, soft Extremities: normal inspection, no pedal edema, no calf tenderness Neurologic/Psychiatric: alert, oriented x 3, + pertinent finding (faigued) Skin: warm/dry, + pallor (Linda Johnson, CHADWICK-C) Laboratory Results Last 24 Hours Test 06/14/17 23:50 White Blood Count 5.56 K/uL Red Blood Count 3.46 M/uL Hemoglobin 12.4 g/dL Hematocrit 36.7 % Mean Corpuscular Volume 106.1 fL Mean Corpuscular Hemoglobin 35.8 pg Mean Corpuscular Hemoglobin Concent 33.8 g/dl Platelet Count 149 K/uL Mean Platelet Volume 9.2 fL Neutrophils (%) (Auto) 82.2 % Lymphocytes (%) (Auto) 8.1 % Monocytes (%) (Auto) 8.5 % Eosinophils (%) (Auto) 0.5 % Basophils (%) (Auto) 0.2 % Neutrophils # (Auto) 4.57 K/uL Lymphocytes # (Auto) 0.45 K/uL Monocytes # (Auto) 0.47 K/uL Eosinophils # (Auto) 0.03 K/uL Basophils # (Auto) 0.01 K/uL RDW Standard Deviation 59.0 fL RDW Coefficient of Variation 15.4 % Immature Granulocyte % (Auto) 0.5 % Immature Granulocyte # (Auto) 0.03 K/uL Prothrombin Time 9.9 SECONDS Prothromb Time International Ratio 0.9 Activated Partial Thromboplast Time 25.0 SECONDS Partial Thromboplastin Ratio 1.0 Sodium Level 134 mmol/L Potassium Level 3.5 mmol/L Chloride Level 98 mmol/L Carbon Dioxide Level 27 mmol/L Anion Gap 9.0 mmol/L Blood Urea Nitrogen 9 mg/dl Creatinine 0.51 mg/dl Est Creatinine Clear Calc Drug Dose 92.8 ml/min Estimated GFR () 121.1 Estimated GFR (Non- 104.5 BUN/Creatinine Ratio 18.0 Random Glucose 114 mg/dl Calcium Level 8.6 mg/dl Total Bilirubin 0.7 mg/dl Aspartate Amino Transf (AST/SGOT) 45 U/L Alanine Aminotransferase (ALT/SGPT) 20 U/L Alkaline Phosphatase 75 U/L Total Creatine Kinase 108 U/L Creatine Kinase MB 2.9 ng/ml Creatine Kinase MB Ratio 2.7 Troponin I < 0.015 ng/ml Total Protein 6.2 gm/dl Albumin 3.0 gm/dl Globulin 3.2 gm/dl Albumin/Globulin Ratio 0.9 Influenza Type A (RT-PCR) Neg for Influ A Influenza Type A Antigen Neg for Influ A Influenza Type B Antigen Neg for Influ B Influenza Type B (RT-PCR) Neg for Influ B (Linda Johnson, PATeeC) Assessment and Plan This is a 61 y/o F with PMHx of Invasive ductal carcinoma R breast Mar 2016 and 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 Hypoxic Resp failure 2/2 COPD exacerbation 2/2 possible LLL pneumonia/worsening metastatic dz - Levaquin, Rocephin on board, day #2, afebrile overnight, WBC = 5K, RR still elevated in the upper 20s and pt is relatively tachycardic in the high 90s and low 100s today. - Solu-medrol 80mg q6H - continue for now, decrease to Q12H likely tomorrow - Duoneb Q4H prn sob - Bipap on currently, use prn., hold for 30 after oral intake - CT chest reviewed: pleural effusions- shows progression of metastatic disease/ hilar adenopathy Metastatic Breast carcinoma Oncology consulted - appreciate recs - Pt follows with Dr. Camacho as outpatient: currently undergoing chemotherapy with paclitaxel (last dose on 06/12) and concurrent lung XRT. - s/p whole brain XRT which finished on 03/19/17. - Pain management consulted and saw the patient 06/14 prior to admission: continue fentanyl 12 mcg patch, dilaudid 2 mg PO Q3H prn severe pain. Previous regimen including tramadol, hydrocodone abd oxycodone were not sufficient for pain control. - Consider palliative medicine consult Depression - Continue citalopram 40 mg daily for now DVT ppx: Lovenox Code status: Code Full Disposition: From home, CM to assist with d/c planning, d/c possible in >2 days. (Linda Johnson, TIFFANY) PA Physician Supervision Note: I interviewed and examined the patient. Discussed with Linda Johnson PAC and agree with findings and plan as documented in the note. Any exceptions or clarifications are listed here: None Patient is seen in her room stratify family she remains pretty much significantly short of breath she cannot tolerate being on BiPAP any longer she is wearing the oxygen mask. Vital signs show her to be with saturations in the low 90s despite significant oxygen supplementation she remains to She'll otherwise is alert and oriented X Her cardiac exam is minorly tachycardic, she is decreased breath sounds in all lung mejia note respiratory wheezes no focal air loss COPD exacerbation in a patient with known metastatic breast and lung cancer. Description of left lower lobe pneumonia on initial chest x-ray however this corresponds to previous known metastatic area. Maximize treatment for COPD including steroids and inhaled medications improved somatic control of chronic pain with parenteral opioids eventual discussion of CODE STATUS and palliative care when the patient is in a better state to discuss this Documented By: Luiz Anderson (Luiz Anderson M.D.)
[2017-06-15] MEDS: FENTANYL PATCH REMOVE & WASTE SCH (08:35)
[2017-06-15] MEDS: FENTANYL 12 MCG/HR TDSY TD SCH (08:36)
[2017-06-15] MEDS: HYDROmorphone HCL 2 MG TAB PO PRN ×2 (08:36→12:32)
--- NOTE | 2017-06-15 08:51 | ONCOLOGY CONSULTATION ---
DATE OF CONSULTATION: 06/15/2017 REASON FOR CONSULTATION: A 61-year-old female with a metastatic breast cancer and small cell lung cancer, well known to [facility]. HISTORY OF PRESENT ILLNESS: Pricilla is a pleasant, but unfortunate 61-year-old female patient with a history of small cell lung cancer and metastatic breast cancer, well known to the [facility] under the care of Dr. Floyd Parrish. Apparently over the past 24 hours, she had become increasingly short of breath. She is presently utilizing BiPAP and therefore, difficult to elicit the chronology of events leading up to admission. She is currently receiving palliative radiation therapy to painful bony regions. She is receiving weekly paclitaxel as a salvage therapy for metastatic breast cancer. According to Dr. Parrish's clinical note, Pricilla's staging scans in early February had revealed 5 new brain metastases as well as progressive adenopathy and possible new liver metastasis. The patient received whole brain radiation therapy, which completed on 03/19/2017. Biopsy of prosper disease in early April confirmed metastatic breast cancer. She was initially started on single agent Xeloda, which was poorly tolerated. Therefore, she was switched to paclitaxel and received her last dose of chemotherapy on Sunday of this week. Again, she is also receiving concurrent palliative radiation therapy. PAST MEDICAL HISTORY: Again significant for, 1. Limited stage small cell lung cancer of the left lower lobe. 2. Invasive ductal carcinoma of the right breast, grade 2, ER/KS negative, HER-2/maida negative, which has now developed into metastatic disease. 3. COPD, PTSD, fibromyalgia, anxiety and a history of alcohol abuse and withdrawal. MEDICATIONS: Prior to admission include citalopram 40 mg p.o. q. daily, fentanyl 12 mcg topically q. 72 hours, Dilaudid 2 mg p.o. p.r.n., and multivitamin 1 daily. ALLERGIES: VINEGAR, SULFA, LATEX AND ADHESIVES. SOCIAL HISTORY: The patient is , lives independently, reformed smoker. FAMILY HISTORY: Positive for cancer and heart disease. REVIEW OF SYSTEMS: Unobtainable because of the patient's inability to speak while on BiPAP therapy. PHYSICAL EXAMINATION: GENERAL: She is a pleasant 61-year-old female patient, lying supine in bed, in no acute distress. VITAL SIGNS: Temperature 36.8, pulse 104, respiratory rate 24, and blood pressure 121/75. SKIN: Without rash or lesion. HEENT: Head is atraumatic and normocephalic. Eyes: PERRLA and EOMI. Sclerae nonicteric. Throat not examined. NECK: Supple. LYMPHATICS: No cervical, supraclavicular, or axillary palpable nodes. HEART: Tachycardic, but regular. LUNGS: No apparent rales or rhonchi. ABDOMEN: Soft, nontender, and nondistended without palpable hepatosplenomegaly. EXTREMITIES: No calf tenderness or swelling. No clubbing, cyanosis or edema. NEUROLOGIC: She is awake, alert and oriented x3. Cranial nerves are intact. No gross motor or sensory deficits are apparent. LABORATORY DATA: WBC 5560, hemoglobin 12.4, and platelet count 149,000. Sodium 134, potassium 3.5, chloride 98, carbon dioxide 27, BUN 9, and creatinine 0.51. AST mildly elevated at 45. Albumin slightly decreased at 3.0. IMPRESSION: 1. Exacerbation of chronic obstructive pulmonary disease. 2. Metastatic breast cancer. 3. Hypoalbuminemia. 4. Anxiety/depression. 5. History of alcohol abuse. 6. History of limited stage small cell lung cancer. PLAN: Ms. Ann is a pleasant, but unfortunate 61-year-old female patient of Dr. Floyd Parrish's care at the [facility]. She or recently developed brain and osseous metastases, which was biopsy proven metastatic breast cancer. She was originally treated with Xeloda, which started in early April and was poorly tolerated and recently switched to weekly paclitaxel. The patient is presently on BiPAP and receiving bronchodilators and corticosteroids. Unfortunately, I do not know much about Ms. Ann and will speak to Dr. Parrish regarding continuing therapeutics. Obviously in her current state, either chemotherapy or radiation is advised. I agree with medical management at this point. I have nothing further to add and again we will notify Dr. Parrish for admission to hospital. Thank you very much for allowing us to participate in her care. If you have any questions or concerns, feel free to contact me at any time. [facility]
[2017-06-15] MEDS ORDERED: LORAZEPAM 0.5 MG TAB PO PRN (09:00)
[2017-06-15] MEDS ORDERED: LORAZEPAM 2 MG/ML 1 ML VIAL IV PRN (09:00)
[2017-06-15] MEDS: HYDROmorphone INJ 1 MG/ML SYR IV PRN (15:23)
[2017-06-15] MEDS: ONDANSETRON INJ 2 MG/ML 2 ML VIAL IV PRN ×2 (15:29→23:46)
[2017-06-15] MEDS ORDERED: ALBUT/IPRATROP 3MG/0.5MG NEB 3 ML VIAL INH PRN (16:15)
[2017-06-15] MEDS: FORMOTEROL FUMA NEBULIZER SOLN 20 MCG/2 ML VIAL INH SCH (19:18)
[2017-06-15] MEDS: METHYLPREDNISOLONE IV 40 MG in SYRINGE 0 ML IV SCH (23:38)
[2017-06-15] MEDS: HYDROmorphone INJ 0.5 MG/0.5 ML SYR IV PRN (23:46)
[2017-06-16] VITALS (14 sets, daily range): BP systolic 92–114; BP diastolic 56–70; PULSE 79–96; TEMP 36.3–36.8; O2SAT 91–96
[2017-06-16] MEDS: CEFTRIAXONE SOD INJ 1 GM in DEXTROSE 5% ADD-VANTAGE 50ML 50 ML IV SCH (01:39)
[2017-06-16] MEDS: LEVOFLOXACIN / D5W 750 MG in PREMIXED IN D5W 150 ML IV SCH (01:39)
[2017-06-16] MEDS: HYDROmorphone HCL 2 MG TAB PO PRN ×4 (03:59→22:20)
[2017-06-16] MEDS: FORMOTEROL FUMA NEBULIZER SOLN 20 MCG/2 ML VIAL INH SCH ×2 (07:10→19:52)
[2017-06-16 07:13] LABS: HEMATOCRIT 33.9 % (37-47); HEMOGLOBIN 11.2 g/dL (12.0-16.0); MEAN CELL VOLUME 107.3 fL (80-100); MEAN CORPUSCULAR HEMOGLOBIN 35.4 pg (25-34); MEAN PLATELET VOLUME 9.7 fL (7.4-10.4); PLATELET COUNT 148 K/uL (130-400); WHITE BLOOD COUNT 8.21 K/uL (4.8-10.8)
[2017-06-16 07:42] LABS: CREATININE 0.45 mg/dl (0.60-1.20); POTASSIUM 4.2 mmol/L (3.5-5.1)
[2017-06-16] MEDS: ALBUT/IPRATROP 3MG/0.5MG NEB 3 ML VIAL INH SCH ×4 (07:43→19:52)
[2017-06-16] MEDS: MULTIVITAMIN TAB PO SCH (08:24)
[2017-06-16] MEDS: CITALOPRAM 40 MG TAB PO SCH (08:24)
[2017-06-16] MEDS: ENOXAPARIN 40 MG/0.4 ML SYR SC SCH (08:25)
[2017-06-16] MEDS: METHYLPREDNISOLONE IV 40 MG in SYRINGE 0 ML IV SCH ×2 (08:25→16:50)
[2017-06-16] MEDS: CHECK FENTANYL PATCH PLACEMENT SCH ×2 (08:25→16:51)
--- NOTE | 2017-06-16 11:58 | Progress Note ---
Subjective Date of Service: Jun 16, 2017. Subjective pt has improved but remains in respiratory distress speaking in short sentences and being tachypneic, she has no pain and a non productive cough, she mostly complains about hives which she typically gets from chemo Problem List Medical Problems: (1) Acute alcohol intoxication Status: Acute (2) Alcohol abuse Status: Chronic (3) Alteration in self-care ability Status: Acute (4) Anxiety Status: Chronic (5) Breast abscess Status: Acute (6) Cellulitis Status: Acute (7) Closed head injury Status: Acute (8) Depression Status: Chronic (9) Facial abrasion Status: Acute (10) Facial contusion Status: Acute (11) Fibromyalgia Status: Chronic (12) Generalized weakness Status: Acute (13) Hepatitis Status: Chronic (14) Hyponatremia Status: Acute (15) Malnourished Status: Chronic (16) Pneumonia Status: Acute (17) Pneumonia, community acquired Status: Acute (18) PTSD (post-traumatic stress disorder) Status: Chronic Review of Systems Constitutional: + weakness, + fatigue, No fever, No chills Respiratory: + cough, + shortness of breath, + dyspnea at rest, No sputum Cardiac: No chest pain, No edema Abdomen: No pain, No nausea, No vomiting Musculoskeletal: + joint pain, + muscle pain Neurologic: + weakness, No memory loss Psychiatric: + depression symptoms, + anxiety Objective Vital Signs Date Time Temp Pulse Resp B/P (MAP) Pulse Ox O2 Delivery O2 Flow Rate FiO2 06/16/17 11:35 36.5 82 19 99/61 (74) 92 Nasal Cannula 12.0 06/16/17 11:13 82 20 94 Mask 15.0 06/16/17 08:00 Oxymask 15.0 06/16/17 07:45 36.4 79 19 93/63 (73) 95 Mask 15.0 06/16/17 07:10 92 22 91 Mask 15.0 06/16/17 04:00 Oxymask 15.0 06/16/17 02:51 36.3 96 20 92/56 (68) 92 Mask 15.0 06/16/17 00:14 36.7 87 20 96/61 (73) 91 Mask 15.0 06/16/17 00:01 Oxymask 15.0 06/15/17 20:00 Oxymask 15.0 06/15/17 19:40 36.8 94 24 95/59 (71) 90 Oxymask 15.0 06/15/17 19:18 92 24 93 Mask 15.0 06/15/17 16:00 Oxymask 15.0 06/15/17 15:06 36.3 98 22 114/64 (81) 89 Oxymask 15.0 06/15/17 14:30 87 22 91 Mask 15.0 06/15/17 12:24 36.3 97 24 110/74 (86) 94 Oxymask 15.0 06/15/17 12:00 Oxymask 15.0 Physical Exam General Appearance: + moderate distress, + thin Eyes: normal inspection, sclerae normal Respiratory/Chest: + decreased breath sounds, + accessory muscle use, + rhonchi Cardiovascular: regular rate, rhythm, no murmur Abdomen: normal bowel sounds, non tender, soft Extremities: no pedal edema, no calf tenderness Neurologic/Psychiatric: alert, oriented x 3 Laboratory Results Last 24 Hours Test 06/16/17 06:51 White Blood Count 8.21 K/uL Red Blood Count 3.16 M/uL Hemoglobin 11.2 g/dL Hematocrit 33.9 % Mean Corpuscular Volume 107.3 fL Mean Corpuscular Hemoglobin 35.4 pg Mean Corpuscular Hemoglobin Concent 33.0 g/dl RDW Standard Deviation 59.0 fL RDW Coefficient of Variation 15.0 % Platelet Count 148 K/uL Mean Platelet Volume 9.7 fL Sodium Level 133 mmol/L Potassium Level 4.2 mmol/L Chloride Level 96 mmol/L Carbon Dioxide Level 32 mmol/L Anion Gap 5.0 mmol/L Blood Urea Nitrogen 9 mg/dl Creatinine 0.45 mg/dl Est Creatinine Clear Calc Drug Dose 108.6 ml/min Estimated GFR () 125.3 Estimated GFR (Non- 108.1 BUN/Creatinine Ratio 19.9 Random Glucose 118 mg/dl Calcium Level 9.0 mg/dl Assessment and Plan 61 y/o F presents with acute on chronic respiratory failure with hypoxia, has a PMHx of Invasive ductal carcinoma R breast Mar 2016 and 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 The day of her presentation was at radiation onc treatment and in and out of the cold air Acute Hypoxic Respiratory failure / COPD exacerbation /possible LLL pneumonia/ worsening metastatic dz - Levaqdisha, Rocephin.Solu-medrol taper dose as able - Duoneb Q4H prn sob - CT chest reviewed: pleural effusions- shows progression of metastatic disease/ hilar adenopathy -Feeling is this profound hypoxia is likley copd generated at CT did not show PE 's, if not improving may consider thoracentesis to help expand lung and have more surface area for diffusion. Current need for significant oxygen prohibits thought of going home Metastatic Breast carcinoma Oncology consulted - usually follows with Dr. Jayden Del Real as outpatient: currently undergoing chemotherapy with paclitaxel (last dose on 06/12) and concurrent lung XRT. - s/p whole brain XRT which finished on 03/19/17. Significant right shoulder pain- Pain management consulted and saw the patient 06/14 prior to admission: fentanyl 12 mcg patch, dilaudid 2 mg PO or IV for severe pain. Previous regimen including tramadol, hydrocodone abd oxycodone were not sufficient for pain control. Pt was in too significant distress to discuss end of life goals once she recovers some consider palliative medicine consult Depression citalopram 40 mg daily for now DVT ppx: Lovenox Code status: Code Full Disposition: From home, CM to assist with d/c planning, d/c possible in >2 days.
[2017-06-16] MEDS ORDERED: FAMOTIDINE IV INJ 20 MG in DEXTROSE 5% 100ML 100 ML IV SCH (12:00)
[2017-06-16] MEDS: FAMOTIDINE IV INJ 20 MG in SYRINGE 3 ML IV SCH ×2 (13:12→21:18)
[2017-06-16] MEDS: TRIAMCINOLONE ACET 0.1% CR 80 GM TUBE EXT PRN (13:13)
[2017-06-16] MEDS: HYDROmorphone INJ 0.5 MG/0.5 ML SYR IV PRN (20:01)
[2017-06-17] VITALS (10 sets, daily range): BP systolic 100–126; BP diastolic 51–78; PULSE 81–95; TEMP 36.4–36.6; O2SAT 4–96
[2017-06-17] MEDS: METHYLPREDNISOLONE IV 40 MG in SYRINGE 0 ML IV SCH ×4 (00:30→23:18)
[2017-06-17] MEDS: HYDROmorphone INJ 1 MG/ML SYR IV PRN ×4 (00:35→23:18)
[2017-06-17] MEDS: CEFTRIAXONE SOD INJ 1 GM in DEXTROSE 5% ADD-VANTAGE 50ML 50 ML IV SCH (00:35)
[2017-06-17] MEDS: LEVOFLOXACIN / D5W 750 MG in PREMIXED IN D5W 150 ML IV SCH (01:12)
[2017-06-17] MEDS: ALBUT/IPRATROP 3MG/0.5MG NEB 3 ML VIAL INH SCH ×4 (07:12→19:13)
[2017-06-17] MEDS: FORMOTEROL FUMA NEBULIZER SOLN 20 MCG/2 ML VIAL INH SCH ×2 (07:12→19:14)
[2017-06-17] MEDS: HYDROmorphone HCL 2 MG TAB PO PRN ×2 (08:49→15:50)
[2017-06-17] MEDS: FAMOTIDINE IV INJ 20 MG in SYRINGE 3 ML IV SCH ×2 (08:49→20:52)
[2017-06-17] MEDS: CITALOPRAM 40 MG TAB PO SCH (08:50)
[2017-06-17] MEDS: CHECK FENTANYL PATCH PLACEMENT SCH ×4 (08:50→23:24)
[2017-06-17] MEDS: ENOXAPARIN 40 MG/0.4 ML SYR SC SCH (08:50)
[2017-06-17] MEDS: MULTIVITAMIN TAB PO SCH (08:50)
[2017-06-17 09:04] LABS: CALCIUM 9.4 mg/dl (8.5-10.1); CREATININE 0.62 mg/dl (0.60-1.20); POTASSIUM 3.9 mmol/L (3.5-5.1)
[2017-06-17] MEDS: HYDROmorphone INJ 0.5 MG/0.5 ML SYR IV PRN ×2 (10:52→21:00)
[2017-06-17] MEDS ORDERED: ALTEPLASE, RECOMBINANT 1 MG/ML 2 ML VIAL IV ONE (12:00)
--- NOTE | 2017-06-17 12:14 | Hematology/Oncology Prog Note ---
Hematology/Onc Progress Note Date of Service Jun 17, 2017. Diagnoses Metastatic carcinoma, with history of triple negative breast cancer and small cell lung cancer Shortness of breath. Medications Medications Administered Medications (Trade) Dose Ordered Sig/Gaudencio Route Start Time Stop Time Status Last Admin Dose Admin Albuterol/ Ipratropium (Duoneb) 3 ml NOW STAT INH 06/14/17 22:52 06/14/17 22:56 DC 06/14/17 23:26 3 ML Ceftriaxone Sodium (Rocephin Inj) 1 gm NOW STAT IV 06/14/17 22:52 06/14/17 22:56 DC 06/15/17 00:20 1 GM Levofloxacin (Levaquin / D5W) 750 mg NOW STAT IV 06/14/17 22:52 06/14/17 22:56 DC 06/15/17 01:17 750 MG Methylprednisolone Sodium Succinate (Solu-Medrol IV) 125 mg NOW STAT IV 06/14/17 22:52 06/14/17 22:56 DC 06/14/17 23:26 125 MG Morphine Sulfate (MoRPHine SULFATE INJ) 4 mg NOW STAT IV 06/14/17 22:52 06/14/17 22:56 DC 06/14/17 23:27 4 MG Sodium Chloride 500 ml @ 999 mls/hr Q31M STAT IV 06/15/17 01:26 06/15/17 01:56 DC 06/15/17 01:33 999 MLS/HR Enoxaparin Sodium (Lovenox Inj) 40 mg Q24H SC 06/15/17 09:00 07/15/17 08:59 06/17/17 08:50 40 MG Ondansetron HCl (Zofran Inj) 4 mg Q6H PRN IV 06/15/17 02:00 07/15/17 01:59 06/15/17 23:46 4 MG Citalopram Hydrobromide (celeXA TAB) 40 mg QAM PO 06/15/17 09:00 07/15/17 08:59 06/17/17 08:50 40 MG Diphenhydramine HCl (Benadryl Cap) 25 mg Q4H PRN PO 06/15/17 02:00 06/16/17 12:00 DC 06/16/17 08:24 25 MG Fentanyl (Duragesic Patch) 12 mcg Q72H TD 06/15/17 09:00 06/29/17 08:59 06/15/17 08:36 12 MCG Hydromorphone HCl (Dilaudid Tab) 2 mg 3XDQ4 PRN PO 06/15/17 02:00 06/29/17 01:59 06/17/17 08:49 2 MG Multivitamins (Multivitamin Tab) 1 tab QAM PO 06/15/17 09:00 07/15/17 08:59 06/17/17 08:50 1 TAB Albuterol/ Ipratropium (Duoneb) 3 ml QIDR INH 06/15/17 08:00 07/15/17 07:59 06/17/17 10:57 3 ML Methylprednisolone Sodium Succinate 80 mg/Syringe 1.28 ml @ 1.5 mls/min Q6H IV 06/15/17 04:00 06/15/17 16:16 DC 06/15/17 15:22 1.5 MLS/MIN Levofloxacin 750 mg/Prmx 150 ml @ 100 mls/hr Q24H IV 06/16/17 02:00 06/21/17 03:29 06/17/17 01:12 100 MLS/HR Ceftriaxone Sodium 1 gm/ Dextrose 50 ml @ 100 mls/hr Q24H IV 06/16/17 01:00 06/21/17 01:29 06/17/17 00:35 100 MLS/HR Lorazepam (Ativan Inj) 0.5 mg NOW STAT IV 06/15/17 03:37 06/15/17 03:44 DC 06/15/17 04:01 0.5 MG Miscellaneous (Fentanyl Patch Remove & Waste) 1 ea Q3D N/A 06/15/17 08:59 07/15/17 08:58 06/15/17 08:35 1 EA Miscellaneous Information (Check Fentanyl Patch Placement) 1 ea QS N/A 06/15/17 08:00 07/15/17 07:59 06/17/17 08:50 1 EA Lorazepam (Ativan Tab) 0.5 mg Q6H PRN PO 06/15/17 09:00 07/15/17 08:59 06/16/17 02:54 0.5 MG Hydromorphone HCl (Dilaudid Inj) 0.5 mg Q2H PRN IV 06/15/17 14:45 06/29/17 14:44 06/17/17 10:52 0.5 MG Hydromorphone HCl (Dilaudid Inj) 1 mg Q2H PRN IV 06/15/17 14:45 06/29/17 14:44 06/17/17 02:48 1 MG Methylprednisolone Sodium Succinate 40 mg/Syringe 0.64 ml @ 1.5 mls/min Q8H IV 06/16/17 00:00 07/15/17 03:59 06/17/17 08:50 1.5 MLS/MIN Formoterol Fumarate (Perforomist 20MCG/2ML Neb Soln) 20 mcg BID INH 06/15/17 21:00 07/15/17 20:59 06/17/17 07:12 20 MCG Heparin Sodium (Porcine) (Heparin 100 Unit/ml 5ml Flush) 5 ml PRN PRN IV 06/16/17 00:15 07/16/17 00:14 06/17/17 11:44 5 ML Diphenhydramine HCl (Benadryl Cap) 50 mg Q4H PRN PO 06/16/17 12:00 07/15/17 01:59 06/17/17 08:49 50 MG Triamcinolone Acetonide (Triamcinolone Acet 0.1% Crm) 1 appln BID PRN EXT 06/16/17 12:00 07/16/17 11:59 06/16/17 13:13 1 APPLN Famotidine 20 mg/ Syringe 5 ml @ 2.5 mls/min BID IV 06/16/17 13:15 07/16/17 13:14 06/17/17 08:49 2.5 MLS/MIN Subjective Ms. Ann is looking a bit better this morning. She is breathing more comfortably with supportive care. She remains in pain but is starting RT for her shoulder metastasis. She looks very tired and weak. Review of Systems: Constitutional: + weakness, + fatigue Respiratory: + cough, + shortness of breath (improving) Cardiovascular: No chest pain Abdomen: No pain, No nausea, No vomiting Musculoskeletal: + joint pain (shoulder pain) Skin: + rash Vital Signs Vital Signs Past 12 Hours Date Time Temp Pulse Resp B/P (MAP) Pulse Ox O2 Delivery O2 Flow Rate FiO2 06/17/17 11:29 36.4 95 90 126/78 (94) 4 Nasal Cannula 06/17/17 10:57 86 18 91 Nasal Cannula 4.0 06/17/17 08:00 Nasal Cannula 4.0 06/17/17 07:46 36.5 85 18 109/63 (78) 95 Mask 10.0 06/17/17 07:13 81 20 96 Mask 8.0 06/17/17 04:00 92 Oxymask 10.0 06/17/17 03:45 36.5 94 20 101/51 (68) 92 Mask 10.0 Physical Exam Constitutional: General Apperance: cachectic Level of Distress: NAD, chronically ill Psychiatric: Mental Status: active & alert Orientation: oriented except where noted Lungs: Respiratory Effort: no dyspnea Auscuitation: deminished air movement, rhonchi Cardiovascular: Heart Auscultation: RRR Abdomen: Inspection & Palpation: soft, no tenderness, guarding & rebound Laboratory Last 24 Hours Test 06/17/17 08:18 Sodium Level 135 mmol/L Potassium Level 3.9 mmol/L Chloride Level 94 mmol/L Carbon Dioxide Level 34 mmol/L Anion Gap 7.0 mmol/L Blood Urea Nitrogen 9 mg/dl Creatinine 0.62 mg/dl Est Creatinine Clear Calc Drug Dose 78.8 ml/min Estimated GFR () 112.8 Estimated GFR (Non- 97.3 BUN/Creatinine Ratio 14.4 Random Glucose 149 mg/dl Osmolality 284 mOsm/kg Calcium Level 9.4 mg/dl Magnesium Level 2.3 mg/dl Assessment & Plan I had a long chat with Ms. Ann and her family. Her scans show progressive disease, with what appears to be lymphangitic spread of her tumor in the lungs. She also has a very symptomatic shoulder lesion. While she did just recently start a new line of therapy, my concern is that her disease may take her life before we have a chance to see a response. She also appears to be having a rash that may be related to the Taxol. Furthermore, her PS has declined such that it will take some time before she's a candidate for further treatment anyway and, in that time, her disease will only worsen. With all of that in mind, I suggested she transition her care to hospice. We reviewed the concept of hospice and what services they provide. After some contemplation, she agreed to this change. She also agreed to be DNR/DNI. I think this is a very prudent decision and will save her a great deal of suffering. She will complete her palliative RT to her shoulder and, if she's still here early next week, I would contact Dr. Downs to see if he can resume radiation before she leaves. However, she is very motivated to leave sooner if possible. I told her that might be difficult, as it's a holiday, but I will ask on her behalf. In the meantime, I would continue with supportive care as needed. I will check back in on her until she leaves and will be her attending of record for hospice.
[2017-06-17] MEDS: TRIAMCINOLONE ACET 0.1% CR 80 GM TUBE EXT SCH ×2 (15:50→19:27)
--- NOTE | 2017-06-17 18:21 | Progress Note ---
Subjective Date of Service: Jun 17, 2017. Subjective Pt evaluation today including: conversation w/ patient, conversation w/ family (multiple - at bedside), physical exam, chart review, lab review, conversation w / [employer] consultant (heme/onc, social work ), review of inpatient medication list Pain: right shoulder - severe PO Intake: poor Voiding: no voiding problems tele stable overnight patient had lengthy discussion with Dr. Parrish this am - she will return home (hopefully) with hospice she understands her disease has progressed significantly she will continue palliative XRT to right shoulder, however breathing "is better" with less wheezing Oxygen has been weaned Problem List Medical Problems: (1) Acute alcohol intoxication Status: Acute (2) Alcohol abuse Status: Chronic (3) Alteration in self-care ability Status: Acute (4) Anxiety Status: Chronic (5) Breast abscess Status: Acute (6) Cellulitis Status: Acute (7) Closed head injury Status: Acute (8) Depression Status: Chronic (9) Facial abrasion Status: Acute (10) Facial contusion Status: Acute (11) Fibromyalgia Status: Chronic (12) Generalized weakness Status: Acute (13) Hepatitis Status: Chronic (14) Hyponatremia Status: Acute (15) Malnourished Status: Chronic (16) Pneumonia Status: Acute (17) Pneumonia, community acquired Status: Acute (18) PTSD (post-traumatic stress disorder) Status: Chronic Review of Systems Constitutional: No fever, No chills Respiratory: + cough, + dyspnea on exertion, No hemoptysis Cardiac: No chest pain Abdomen: No pain Psychiatric: + insomnia (severe) Skin: + itch (generalized) Objective Vital Signs Date Time Temp Pulse Resp B/P (MAP) Pulse Ox O2 Delivery O2 Flow Rate FiO2 06/17/17 16:00 Nasal Cannula 4.0 06/17/17 15:15 36.5 92 20 100/57 (71) 96 Oxymask 4.0 06/17/17 15:10 94 18 90 Nasal Cannula 4.0 06/17/17 12:00 Nasal Cannula 4.0 06/17/17 11:29 36.4 95 90 126/78 (94) 90 Nasal Cannula 4.0 06/17/17 10:57 86 18 91 Nasal Cannula 4.0 06/17/17 08:00 Nasal Cannula 4.0 06/17/17 07:46 36.5 85 18 109/63 (78) 95 Mask 10.0 06/17/17 07:13 81 20 96 Mask 8.0 06/17/17 04:00 92 Oxymask 10.0 06/17/17 03:45 36.5 94 20 101/51 (68) 92 Mask 10.0 06/17/17 00:00 Oxymask 10.0 06/16/17 23:45 36.5 90 18 101/65 (77) 94 Nasal Cannula 10.0 06/16/17 20:00 93 Mask 10.0 06/16/17 19:52 93 22 92 Mask 10.0 06/16/17 19:48 36.8 88 24 114/70 (85) 92 Oxymask 10.0 Physical Exam General Appearance: + mild distress (scratching her skin in multiple places), + thin ENT: pharynx normal Neck: no JVD Respiratory/Chest: + decreased breath sounds (bases), + wheezing (b/l) Cardiovascular: regular rate, rhythm, no gallop Abdomen: normal bowel sounds, non tender, soft, no organomegaly Extremities: no pedal edema Neurologic/Psychiatric: alert, oriented x 3 Skin: + pertinent finding (full alopecia of head) Laboratory Results Last 24 Hours Test 06/17/17 08:18 Sodium Level 135 mmol/L Potassium Level 3.9 mmol/L Chloride Level 94 mmol/L Carbon Dioxide Level 34 mmol/L Anion Gap 7.0 mmol/L Blood Urea Nitrogen 9 mg/dl Creatinine 0.62 mg/dl Est Creatinine Clear Calc Drug Dose 78.8 ml/min Estimated GFR () 112.8 Estimated GFR (Non- 97.3 BUN/Creatinine Ratio 14.4 Random Glucose 149 mg/dl Osmolality 284 mOsm/kg Calcium Level 9.4 mg/dl Magnesium Level 2.3 mg/dl Assessment and Plan 62yo female with: 1. Acute Hypoxic Respiratory failure 2nd to COPD exacerbation with possible pneumonia. There also appears to be worsening metastatic disease. Her o2 requirement is down significantly. Cont levaquin; d/c rocephin. leave steroids as is today. Cont duonebs scheduled. 2. generalized pruritis - moisturizers, topical steroids, benadryl prn, doxepin at HS. 3. insomnia - doxepin 10mg at HS. 4. stage 4 and progressive breast ca - lengthy discussion today with Dr. Jayden Jimenez & patient. She has decided to initiate hospice. She understands her disease has progressed despite chemotherapy. She wishes to continue palliative XRT only to right shoulder. SW to assist with arranging home hospice. 5. right shoulder pain 2nd to bony mets - Pain management consulted and saw the patient 06/14 prior to admission - continue fentanyl 12 mcg patch, dilaudid 2 mg PO or IV for severe pain. Previous regimen including tramadol, hydrocodone and oxycodone were not sufficient for pain control. 6. depression - continue citalopram 40mg daily. 7. DVT prophylaxis - Lovenox 8. chronic pain syndrome 2nd to metastatic disease - continue current regimen. 9. hyponatremia - resolved. 10. patient made DNR today by Dr. Parrish following his discussion w/ her. Continued [facility] stay due to: multiple IV medications needed Discharge planning: home with Hospice
[2017-06-17] MEDS ORDERED: SENNA 8.6 MG TAB PO ONE (18:30)
[2017-06-17] MEDS: POLYETHYLENE (MIRALAX) 17 GM PACK PO SCH (19:26)
[2017-06-17] MEDS: DOXEPIN HCL 10 MG CAP PO SCH (20:53)
[2017-06-18] VITALS (9 sets, daily range): BP systolic 105–134; BP diastolic 70–79; PULSE 80–97; TEMP 36.3–36.8; O2SAT 90–95
[2017-06-18] MEDS: HYDROmorphone INJ 0.5 MG/0.5 ML SYR IV PRN ×2 (02:02→07:10)
[2017-06-18] MEDS: LEVOFLOXACIN / D5W 750 MG in PREMIXED IN D5W 150 ML IV SCH (02:02)
[2017-06-18] MEDS: HYDROmorphone HCL 2 MG TAB PO PRN ×2 (03:28→17:17)
[2017-06-18] MEDS: FORMOTEROL FUMA NEBULIZER SOLN 20 MCG/2 ML VIAL INH SCH ×2 (07:16→19:35)
[2017-06-18] MEDS: ALBUT/IPRATROP 3MG/0.5MG NEB 3 ML VIAL INH SCH ×4 (07:16→19:36)
[2017-06-18] MEDS: SENNA 8.6 MG TAB PO SCH (08:00)
[2017-06-18] MEDS: POLYETHYLENE (MIRALAX) 17 GM PACK PO SCH (08:00)
[2017-06-18] MEDS: FENTANYL PATCH REMOVE & WASTE SCH ×2 (08:08→12:36)
[2017-06-18] MEDS: CHECK FENTANYL PATCH PLACEMENT SCH ×2 (08:09→16:26)
[2017-06-18] MEDS: ENOXAPARIN 40 MG/0.4 ML SYR SC SCH (08:11)
[2017-06-18] MEDS: MULTIVITAMIN TAB PO SCH (08:11)
[2017-06-18] MEDS: TRIAMCINOLONE ACET 0.1% CR 80 GM TUBE EXT SCH ×3 (08:12→20:09)
[2017-06-18] MEDS: FENTANYL 12 MCG/HR TDSY TD SCH (08:12)
[2017-06-18] MEDS: CITALOPRAM 40 MG TAB PO SCH (08:44)
[2017-06-18] MEDS: METHYLPREDNISOLONE IV 40 MG in SYRINGE 0 ML IV SCH ×2 (08:45→16:26)
[2017-06-18] MEDS: FAMOTIDINE IV INJ 20 MG in SYRINGE 3 ML IV SCH ×2 (08:45→20:09)
[2017-06-18] MEDS: HYDROmorphone INJ 1 MG/ML SYR IV PRN ×2 (09:38→11:32)
[2017-06-18] MEDS: FENTANYL 25 MCG/HR TDSY TD SCH (12:33)
[2017-06-18] MEDS: HYDROmorphone INJ 2 MG/ML SYR/VIAL IV PRN ×3 (16:26→22:37)
[2017-06-18] MEDS: DOXEPIN HCL 10 MG CAP PO SCH (20:09)
[2017-06-19] VITALS (13 sets, daily range): BP systolic 97–126; BP diastolic 62–78; PULSE 74–97; TEMP 36.2–36.7; O2SAT 82–94
[2017-06-19] MEDS: CHECK FENTANYL PATCH PLACEMENT SCH ×3 (00:25→15:39)
[2017-06-19] MEDS: METHYLPREDNISOLONE IV 40 MG in SYRINGE 0 ML IV SCH ×2 (00:37→07:32)
[2017-06-19] MEDS: HYDROmorphone INJ 2 MG/ML SYR/VIAL IV PRN ×6 (01:11→22:20)
[2017-06-19] MEDS: LEVOFLOXACIN / D5W 750 MG in PREMIXED IN D5W 150 ML IV SCH (02:24)
[2017-06-19] MEDS: HYDROmorphone HCL 2 MG TAB PO PRN ×3 (06:15→21:10)
[2017-06-19] MEDS: SENNA 8.6 MG TAB PO SCH (07:18)
[2017-06-19] MEDS: POLYETHYLENE (MIRALAX) 17 GM PACK PO SCH (07:18)
[2017-06-19] MEDS: TRIAMCINOLONE ACET 0.1% CR 80 GM TUBE EXT SCH ×3 (07:20→19:45)
[2017-06-19] MEDS: CITALOPRAM 40 MG TAB PO SCH (07:20)
[2017-06-19] MEDS: ALBUT/IPRATROP 3MG/0.5MG NEB 3 ML VIAL INH SCH ×4 (07:20→20:00)
[2017-06-19] MEDS: ENOXAPARIN 40 MG/0.4 ML SYR SC SCH (07:20)
[2017-06-19] MEDS: MULTIVITAMIN TAB PO SCH (07:20)
[2017-06-19] MEDS: FORMOTEROL FUMA NEBULIZER SOLN 20 MCG/2 ML VIAL INH SCH ×2 (07:21→20:02)
[2017-06-19] MEDS: FAMOTIDINE IV INJ 20 MG in SYRINGE 3 ML IV SCH (07:31)
--- NOTE | 2017-06-19 11:59 | Hematology/Oncology Prog Note ---
Hematology/Onc Progress Note Date of Service Jun 19, 2017. Diagnoses Metastatic breast carcinoma triple negative Recent history of small cell lung carcinoma Decreased performance status COPD Refractory pain right shoulder Medications Medications Administered Medications (Trade) Dose Ordered Sig/Gaudencio Route Start Time Stop Time Status Last Admin Dose Admin Albuterol/ Ipratropium (Duoneb) 3 ml NOW STAT INH 06/14/17 22:52 06/14/17 22:56 DC 06/14/17 23:26 3 ML Ceftriaxone Sodium (Rocephin Inj) 1 gm NOW STAT IV 06/14/17 22:52 06/14/17 22:56 DC 06/15/17 00:20 1 GM Levofloxacin (Levaquin / D5W) 750 mg NOW STAT IV 06/14/17 22:52 06/14/17 22:56 DC 06/15/17 01:17 750 MG Methylprednisolone Sodium Succinate (Solu-Medrol IV) 125 mg NOW STAT IV 06/14/17 22:52 06/14/17 22:56 DC 06/14/17 23:26 125 MG Morphine Sulfate (MoRPHine SULFATE INJ) 4 mg NOW STAT IV 06/14/17 22:52 06/14/17 22:56 DC 06/14/17 23:27 4 MG Sodium Chloride 500 ml @ 999 mls/hr Q31M STAT IV 06/15/17 01:26 06/15/17 01:56 DC 06/15/17 01:33 999 MLS/HR Enoxaparin Sodium (Lovenox Inj) 40 mg Q24H SC 06/15/17 09:00 07/15/17 08:59 06/19/17 07:20 40 MG Ondansetron HCl (Zofran Inj) 4 mg Q6H PRN IV 06/15/17 02:00 07/15/17 01:59 06/15/17 23:46 4 MG Citalopram Hydrobromide (celeXA TAB) 40 mg QAM PO 06/15/17 09:00 07/15/17 08:59 06/19/17 07:20 40 MG Diphenhydramine HCl (Benadryl Cap) 25 mg Q4H PRN PO 06/15/17 02:00 06/16/17 12:00 DC 06/16/17 08:24 25 MG Fentanyl (Duragesic Patch) 12 mcg Q72H TD 06/15/17 09:00 06/18/17 11:38 DC 06/18/17 08:12 12 MCG Hydromorphone HCl (Dilaudid Tab) 2 mg 3XDQ4 PRN PO 06/15/17 02:00 06/29/17 01:59 06/19/17 06:15 2 MG Multivitamins (Multivitamin Tab) 1 tab QAM PO 06/15/17 09:00 07/15/17 08:59 06/19/17 07:20 1 TAB Albuterol/ Ipratropium (Duoneb) 3 ml QIDR INH 06/15/17 08:00 07/15/17 07:59 06/19/17 11:38 3 ML Methylprednisolone Sodium Succinate 80 mg/Syringe 1.28 ml @ 1.5 mls/min Q6H IV 06/15/17 04:00 06/15/17 16:16 DC 06/15/17 15:22 1.5 MLS/MIN Levofloxacin 750 mg/Prmx 150 ml @ 100 mls/hr Q24H IV 06/16/17 02:00 06/21/17 03:29 06/19/17 02:24 100 MLS/HR Ceftriaxone Sodium 1 gm/ Dextrose 50 ml @ 100 mls/hr Q24H IV 06/16/17 01:00 06/17/17 18:11 DC 06/17/17 00:35 100 MLS/HR Lorazepam (Ativan Inj) 0.5 mg NOW STAT IV 06/15/17 03:37 06/15/17 03:44 DC 06/15/17 04:01 0.5 MG Miscellaneous (Fentanyl Patch Remove & Waste) 1 ea Q3D N/A 06/15/17 08:59 06/18/17 11:49 DC 06/18/17 08:08 1 EA Miscellaneous Information (Check Fentanyl Patch Placement) 1 ea QS N/A 06/15/17 08:00 07/15/17 07:59 06/19/17 07:32 1 EA Lorazepam (Ativan Tab) 0.5 mg Q6H PRN PO 06/15/17 09:00 07/15/17 08:59 06/16/17 02:54 0.5 MG Hydromorphone HCl (Dilaudid Inj) 0.5 mg Q2H PRN IV 06/15/17 14:45 06/18/17 11:38 DC 06/18/17 07:10 0.5 MG Hydromorphone HCl (Dilaudid Inj) 1 mg Q2H PRN IV 06/15/17 14:45 06/18/17 11:38 DC 06/18/17 11:32 1 MG Methylprednisolone Sodium Succinate 40 mg/Syringe 0.64 ml @ 1.5 mls/min Q8H IV 06/16/17 00:00 06/19/17 11:38 DC 06/19/17 07:32 1.5 MLS/MIN Formoterol Fumarate (Perforomist 20MCG/2ML Neb Soln) 20 mcg BID INH 06/15/17 21:00 07/15/17 20:59 06/19/17 07:21 20 MCG Heparin Sodium (Porcine) (Heparin 100 Unit/ml 5ml Flush) 5 ml PRN PRN IV 06/16/17 00:15 07/16/17 00:14 06/19/17 09:24 5 ML Diphenhydramine HCl (Benadryl Cap) 50 mg Q4H PRN PO 06/16/17 12:00 07/15/17 01:59 06/19/17 06:45 50 MG Triamcinolone Acetonide (Triamcinolone Acet 0.1% Crm) 1 appln BID PRN EXT 06/16/17 12:00 07/16/17 11:59 06/16/17 13:13 1 APPLN Famotidine 20 mg/ Syringe 5 ml @ 2.5 mls/min BID IV 06/16/17 13:15 06/19/17 09:24 DC 06/19/17 07:31 2.5 MLS/MIN Alteplase, Recombinant (Activase Cathflo) 2 mg ONE ONCE IV 06/17/17 12:00 06/17/17 12:01 DC 06/17/17 12:33 2 MG Doxepin HCl (Sinequan Cap) 10 mg HS PO 06/17/17 21:00 07/17/17 20:59 06/18/17 20:09 10 MG Triamcinolone Acetonide (Triamcinolone Acet 0.1% Crm) 1 appln TID EXT 06/17/17 16:00 07/17/17 15:59 06/19/17 07:20 1 APPLN Polyethylene (Miralax Powder Packet) 17 gm DAILY PO 06/17/17 18:45 07/15/17 18:44 06/17/17 19:26 17 GM Senna (Senokot Tab) 17.2 mg 1830 ONCE PO 06/17/17 18:30 06/17/17 18:31 DC 06/17/17 19:26 17.2 MG Fentanyl (Duragesic Patch) 25 mcg Q3D@1200 TD 06/18/17 12:00 07/02/17 11:59 06/18/17 12:33 25 MCG Hydromorphone HCl (Dilaudid Inj) 1.5 mg Q2H PRN IV 06/18/17 11:45 06/29/17 14:44 06/19/17 09:23 1.5 MG Miscellaneous (Fentanyl Patch Remove & Waste) 1 ea Q3D@1200 N/A 06/18/17 12:00 07/18/17 11:59 06/18/17 12:36 1 EA Subjective She complains of fairly significant pain in the right shoulder. She had a discussion with Dr. Parrish recently about hospice placement and she is agreeable to that. States her breathing is better. She denies fever. She denies any abdominal pain. Review of Systems: Constitutional: Negative for weight loss, night sweats, or fever Eyes: Negative for event change of vision ENT: Negative for epistaxis, nasal discharge, sore throat, or deafness Cardiovascular: Negative for chest pain, palpitations, dizziness, diaphoresis Respiratory: He states her breathing is better. Gastrointestinal: Negative for diarrhea, hematemesis, melena, nausea, vomiting , or dyspepsia Integumentary (skin): Negative for rash or jaundice discoloration Genitourinary: Negative for urinary frequency, hematuria, or dysuria Neurological: Negative for weakness, seizure activity, headache, or dizziness Lymphatic/Hematologic: Negative for petechiae, bleeding or new adenopathy Musculoskeletal: Right shoulder is causing quite a bit of discomfort. Allergic/Immunologic: Negative for unusual rash or pruritis. Vital Signs Vital Signs Past 12 Hours Date Time Temp Pulse Resp B/P (MAP) Pulse Ox O2 Delivery O2 Flow Rate FiO2 06/19/17 11:39 88 20 91 Mask 6.0 06/19/17 11:17 36.7 97 18 124/78 (93) 92 06/19/17 08:45 Mask 6.0 06/19/17 07:22 78 20 82 Room Air 06/19/17 07:00 36.3 86 16 126/77 (93) 91 Mask 5.0 06/19/17 03:04 36.4 94 20 125/72 (89) 90 Nasal Cannula 3.0 06/19/17 02:31 90 Nasal Cannula 6.0 06/19/17 00:00 90 Nasal Cannula 5.0 Physical Exam Constitutional: vitals are stable. Eyes: Eyes are ROSA EOMI without conjuctival erythema or icterus. ENT: External examination was negative for masses. Neck: Negative for masses or palpable thyromegaly Respiratory: Lung sounds were generally clear bilaterally Cardiovascular: Heart was RRR without significant murmur, gallops aoe rubs Gastrointestinal: No palpable hepatic or splenomegaly. The abdomen was soft with normal bowel sounds. Lymphatic system: there was no palpable peripheral lymphadenopathy Musculoskeletal System: The musculoskeletal system seemed concordant with age. Skin: The skin was negative for jaundice. Neurologic exam: The exam was negative for any focal findings. Deep tendon reflexes were equal and symmetrical. Psychiatric exam: Was essentially negative with normal mood and effect. Breast exam: Not done Extremities:Favors the right arm - has limited mobility. Constitutional: General Apperance: cachectic Level of Distress: NAD, chronically ill Psychiatric: Mental Status: active & alert Orientation: oriented except where noted Lungs: Respiratory Effort: no dyspnea Auscuitation: deminished air movement, rhonchi Cardiovascular: Heart Auscultation: RRR Abdomen: Inspection & Palpation: soft, no tenderness, guarding & rebound Assessment & Plan Triple negative breast carcinoma metastatic disease and worsening performance status as well as a history of small cell lung carcinoma presumably limited stage status post therapy. Her performance status has decreased and conversations have led to hospice placement at this time. It would be warranted to ask palliative care namely Dr. Bridgette Cruz to help with pain management at this juncture. Radiation therapy will be seeing the patient today to resume radiation therapy to the right shoulder.
[2017-06-19] MEDS ORDERED: LORAZEPAM 0.5 MG TAB PO PRN (12:00)
[2017-06-19] MEDS: DEXAMETHASONE INJ 8 MG in SYRINGE 0 ML IV SCH ×2 (14:52→14:53)
--- NOTE | 2017-06-19 15:12 | Palliative Care Consultation ---
Consultation Date of Consultation: Jun 19, 2017. Requesting Physician: Dr Avilez Attending Physician: Dr Avilez Reason for Consultation: Assist with pain control and determine goals of care History of Present Illness Pt is a 62 yo female with a PMH of Metastatic triple negative Breast Cancer and Small Cell Lung Cancer who was admitted on 06/14 for increased SOB. CXR was read as bilateral , basilar ATX. A chest CT showed increased adenopathy, a new R breast nodule , increased liver mets, increased lung nodules and an old pathological fx of the R humerus. Pt states her SOB is better, she has significant pain in her R shoulder and arm. pain is constant, some relief with Dilaudid, pain increases with movement. Reviewed pt's prn pain meds - pt is reluctant to take frequent meds due to sedation and her h/o ETOH abuse. Discussed use of methadone to better control pain and to avoid SE assoc with her previous oxycodone - ie: AMS. Left printed hand out for pt to review. Would start methadone at 5 mg Q 8 hours and watch for sedation due to potentiation of her IV Dilaudid. Discussed with attending , switching her steroid to Decadron for bone pain adjunct. Pt would like to return home as soon as possible to enjoy whatever time she has left. Past Medical/Surgical History Medical History: Metastatic triple negative Breast cancer, Small Cell Lung Cancer, anxiety, depression, COPD, h/o ETOH abuse, smoked 1 ppd since age 19 - quit approx 1 year ago, h/o hepatitis. Surgical History: LALO, C sect, appendectomy Family History + for cancer and heart disease Social History Smoking Status: Former Smoker (quit over 1 year ago, 1 ppd since age 19) History of Alcohol Use: Yes Drug Use: none Marital Status: Housing Status: lives alone (family nearby who are able to assist with care), other (family live nearby and able to assist with care) Occupation Status: employed Review of Systems Constitutional: + fever, + weakness, + fatigue Eyes: No eye pain ENT: No hearing loss Respiratory: + cough, + wheezing, + shortness of breath Cardiac: No chest pain, No edema Abdomen: No pain Female : No dysuria Neurologic: + weakness Psychiatric: + depression symptoms, + anxiety Endo: + fatigue Skin: + rash (though to be due to Taxol) Allergies Coded Allergies: Vinegar (Verified Allergy, Severe, ANAPHYLAXIS, 02/05/17) Sulfa Antibiotics (Verified Allergy, Intermediate, HIVES,SWELLING,RASH, ) Latex (Verified Allergy, Mild, rash, 02/05/17) Adhesives (Verified Adverse Reaction, Mild, RASH IRRITATION, 02/05/17) Medications Current Inpatient Medications Medications (Trade) Dose Ordered Sig/Gaudencio Route Start Time Stop Time Status Last Admin Dose Admin Enoxaparin Sodium (Lovenox Inj) 40 mg Q24H SC 06/15/17 09:00 07/15/17 08:59 06/19/17 07:20 40 MG Acetaminophen (Tylenol Tab) 650 mg Q4H PRN PO 06/15/17 02:00 07/15/17 01:59 Al Hydrox/Mg Hydrox/Simethicone (Maalox Max Susp) 15 ml Q4H PRN PO 06/15/17 02:00 07/15/17 01:59 Magnesium Hydroxide (Milk Of Magnesia Susp) 30 ml Q12H PRN PO 06/15/17 02:00 07/15/17 01:59 Ondansetron HCl (Zofran Inj) 4 mg Q6H PRN IV 06/15/17 02:00 07/15/17 01:59 06/15/17 23:46 4 MG Nitroglycerin (Nitrostat Tab) 0.4 mg UD PRN SL 06/15/17 02:00 07/15/17 01:59 Citalopram Hydrobromide (celeXA TAB) 40 mg QAM PO 06/15/17 09:00 07/15/17 08:59 06/19/17 07:20 40 MG Salmeterol Xinafoate/ Fluticasone (Advair Diskus 250/50 Inh) 1 puff BID PRN INH 06/15/17 02:00 07/15/17 01:59 Future Hold Fluticasone Propionate (Flonase Nasal Chilo) 2 sprays BID PRN GISSELLE 06/15/17 02:00 07/15/17 01:59 Hydromorphone HCl (Dilaudid Tab) 2 mg 3XDQ4 PRN PO 06/15/17 02:00 06/29/17 01:59 06/19/17 06:15 2 MG Multivitamins (Multivitamin Tab) 1 tab QAM PO 06/15/17 09:00 1/28/18 08:59 06/19/17 07:20 1 TAB Ondansetron HCl (Zofran Tab) 8 mg TID PRN PO 06/15/17 02:00 07/15/17 01:59 Sodium Chloride ([place] Nasal [place]ilo) 2 sprays PRN PRN GISSELLE 06/15/17 02:00 07/15/17 01:59 Albuterol/ Ipratropium (Duoneb) 3 ml QIDR INH 06/15/17 08:00 07/15/17 07:59 06/19/17 15:01 3 ML Miscellaneous Information (Check Fentanyl Patch Placement) 1 ea QS N/A 06/15/17 08:00 07/15/17 07:59 06/19/17 07:32 1 EA Lorazepam (Ativan Inj) 1 mg Q4H PRN IV 06/15/17 09:00 07/15/17 08:59 Lorazepam (Ativan Inj) 0.5 mg Q4H PRN IV 06/15/17 09:00 07/15/17 08:59 Lorazepam (Ativan Tab) 0.5 mg Q6H PRN PO 06/15/17 09:00 07/15/17 08:59 06/16/17 02:54 0.5 MG Formoterol Fumarate (Perforomist 20MCG/2ML Neb Soln) 20 mcg BID INH 06/15/17 21:00 07/15/17 20:59 06/19/17 07:21 20 MCG Albuterol/ Ipratropium (Duoneb) 3 ml Q2H PRN INH 06/15/17 16:15 07/15/17 16:14 Heparin Sodium (Porcine) (Heparin 100 Unit/ml 5ml Flush) 5 ml PRN PRN IV 06/16/17 00:15 07/16/17 00:14 06/19/17 13:19 5 ML Triamcinolone Acetonide (Triamcinolone Acet 0.1% Crm) 1 appln BID PRN EXT 06/16/17 12:00 07/16/17 11:59 06/16/17 13:13 1 APPLN Doxepin HCl (Sinequan Cap) 10 mg HS PO 06/17/17 21:00 07/17/17 20:59 06/18/17 20:09 10 MG Triamcinolone Acetonide (Triamcinolone Acet 0.1% Crm) 1 appln TID EXT 06/17/17 16:00 07/17/17 15:59 06/19/17 14:50 1 APPLN Polyethylene (Miralax Powder Packet) 17 gm DAILY PO 06/17/17 18:45 07/15/17 18:44 06/17/17 19:26 17 GM Senna (Senokot Tab) 17.2 mg QAM PO 06/18/17 08:00 07/18/17 08:59 Fentanyl (Duragesic Patch) 25 mcg Q3D@1200 TD 06/18/17 12:00 07/02/17 11:59 06/18/17 12:33 25 MCG Hydromorphone HCl (Dilaudid Inj) 1.5 mg Q2H PRN IV 06/18/17 11:45 06/29/17 14:44 06/19/17 13:19 1.5 MG Miscellaneous (Fentanyl Patch Remove & Waste) 1 ea Q3D@1200 N/A 06/18/17 12:00 07/18/17 11:59 06/18/17 12:36 1 EA Famotidine (Pepcid Tab) 20 mg BID PO 06/19/17 20:00 07/19/17 19:59 Dexamethasone Sodium Phosphate 8 mg/Syringe 2 ml @ 1 mls/min Q12H IV 06/19/17 14:00 07/19/17 13:59 06/19/17 14:53 1 MLS/MIN Levofloxacin (Levaquin Tab) 750 mg DAILY@11 PO 06/20/17 08:00 06/21/17 23:59 Hydroxyzine HCl (Vistaril Tab) 25 mg Q6H PRN PO 06/19/17 12:00 07/19/17 11:59 Lorazepam (Ativan Tab) 0.5 mg Q6H PRN PO 06/19/17 12:00 07/19/17 11:59 Physical Exam Date Time Temp Pulse Resp B/P (MAP) Pulse Ox O2 Delivery O2 Flow Rate FiO2 06/19/17 15:02 74 20 91 Nasal Cannula 94.0 06/19/17 13:35 36.4 93 20 97/67 83 3.0 06/19/17 11:39 88 20 91 Mask 6.0 06/19/17 11:17 36.7 97 18 124/78 (93) 92 06/19/17 08:45 Mask 6.0 06/19/17 07:22 78 20 82 Room Air 06/19/17 07:00 36.3 86 16 126/77 (93) 91 Mask 5.0 06/19/17 03:04 36.4 94 20 125/72 (89) 90 Nasal Cannula 3.0 06/19/17 02:31 90 Nasal Cannula 6.0 06/19/17 00:00 90 Nasal Cannula 5.0 06/18/17 23:18 36.3 97 18 130/74 (92) 90 Oxymask 06/18/17 19:36 91 20 90 Mask 4.0 06/18/17 19:27 36.3 88 18 122/79 (93) 91 Nasal Cannula 4.0 06/18/17 16:15 36.5 87 18 105/70 (82) 93 Nasal Cannula 3.0 06/18/17 16:00 Mask 4.0 General Appearance: + mild distress Eyes: EOMI ENT: hearing grossly normal Neck: supple Respiratory: + decreased breath sounds, + rhonchi, + wheezing, + pertinent finding (sats 88-89% on 4 L O2) Cardiovascular: regular rate, rhythm Abdomen: non tender, + distended Musculoskeletal: normal tone Neurologic/Psychiatric: alert, + pertinent finding (tearful ) Skin: warm/dry Assessment & Plan Palliative Performance Scale: 40 % (1) Pain due to malignant neoplasm metastatic to bone Status: Chronic Assessment & Plan: Pt receiving XRT. Pt to consider starting methadone for improved pain control with no effect on mental status - recommendations in HPI - would start 5 mg Q 8 hours, consider morphine 15 mg prn for pain and dyspnea (2) Palliative care encounter Status: Acute Assessment & Plan: Pt would like to return home, is aware of prognosis , would like to enjoy whatever time she has left (3) Anxiety Status: Chronic Assessment & Plan: Cont prn ativan (4) Small cell carcinoma of left lung Status: Chronic Assessment & Plan: No further chemo planned (5) Breast cancer Status: Acute Assessment & Plan: No further chemo planned (6) COPD exacerbation Status: Acute Assessment & Plan: Improving Counseling and Coordination Chart review, reviewed scans, met with pt and sister - Total Time 70 min with > 50 % of time spent educating regarding pain med options and determining goals of care
--- NOTE | 2017-06-19 18:32 | Progress Note ---
Subjective Date of Service: Jun 19, 2017. Subjective Pt evaluation today including: conversation w/ patient, conversation w/ family (sister at bedside), physical exam, chart review, lab review, conversation w/ virtualization consultant (palliative care twice), review of inpatient medication list Pain: right shoulder - still problematic PO Intake: fair Voiding: no voiding problems patient slept ok last pm however, during my visit, she was quite agitated, tearful, and modestly delirious stating "someone told me I have an x-ray" she also is complaining that staff are not responding to her needs very anxious as well and scratching her skin, constantly moving her hands while I was there Problem List Medical Problems: (1) Acute alcohol intoxication Status: Acute (2) Alcohol abuse Status: Chronic (3) Alteration in self-care ability Status: Acute (4) Anxiety Status: Chronic (5) Breast abscess Status: Acute (6) Cellulitis Status: Acute (7) Closed head injury Status: Acute (8) Depression Status: Chronic (9) Facial abrasion Status: Acute (10) Facial contusion Status: Acute (11) Fibromyalgia Status: Chronic (12) Generalized weakness Status: Acute (13) Hepatitis Status: Chronic (14) Hyponatremia Status: Acute (15) Malnourished Status: Chronic (16) Pneumonia Status: Acute (17) Pneumonia, community acquired Status: Acute (18) PTSD (post-traumatic stress disorder) Status: Chronic Review of Systems Constitutional: No fever Respiratory: + cough, + dyspnea on exertion, No dyspnea at rest Cardiac: No chest pain Abdomen: No pain, No constipation Objective Vital Signs Date Time Temp Pulse Resp B/P (MAP) Pulse Ox O2 Delivery O2 Flow Rate FiO2 06/19/17 16:15 36.4 87 19 100/62 (75) 94 Nasal Cannula 4.0 Humidified Oxygen 06/19/17 15:02 74 20 91 Nasal Cannula 94.0 06/19/17 13:35 36.4 93 20 97/67 83 3.0 06/19/17 11:39 88 20 91 Mask 6.0 06/19/17 11:17 36.7 97 18 124/78 (93) 92 06/19/17 08:45 Mask 6.0 06/19/17 07:22 78 20 82 Room Air 06/19/17 07:00 36.3 86 16 126/77 (93) 91 Mask 5.0 06/19/17 03:04 36.4 94 20 125/72 (89) 90 Nasal Cannula 3.0 06/19/17 02:31 90 Nasal Cannula 6.0 06/19/17 00:00 90 Nasal Cannula 5.0 06/18/17 23:18 36.3 97 18 130/74 (92) 90 Oxymask 06/18/17 19:36 91 20 90 Mask 4.0 06/18/17 19:27 36.3 88 18 122/79 (93) 91 Nasal Cannula 4.0 Physical Exam General Appearance: + mild distress (agitated, constantly scratching her skin, listless, tearful) ENT: pharynx normal Neck: no JVD Respiratory/Chest: no respiratory distress, + crackles (left base), + rhonchi ( occasional ), + wheezing Cardiovascular: regular rate, rhythm, no gallop Abdomen: normal bowel sounds, non tender, soft, no organomegaly Extremities: no pedal edema Neurologic/Psychiatric: alert, + depressed affect, + pertinent finding (mildly confused) Assessment and Plan 62yo female with: 1. Acute Hypoxic Respiratory failure 2nd to COPD exacerbation with possible pneumonia. There also appears to be worsening metastatic disease contributing to this. Cont levaquin but change to PO. Wean steroids and change to decadron as this may help bone pain more so that prednisone. Cont duonebs scheduled. I would recommend O2 at d/c regardless of O2 sats. 2. generalized pruritis - moisturizers, topical steroids, doxepin at HS. Change benadryl to atarax. 3. insomnia - doxepin 10mg at HS. 4. stage 4 and progressive breast ca - Hospice to be initiated at d/c. Palliative care consult appreciated. She wishes to continue palliative XRT only to right shoulder. SW to assist with arranging home hospice. 5. right shoulder pain 2nd to bony mets - Pain management consulted and saw the patient 06/14 prior to admission - continue fentanyl 12 mcg patch, dilaudid 2 mg PO or IV for severe pain. Previous regimen including tramadol, hydrocodone and oxycodone were not sufficient for pain control. Decadron may help pain. Dr. Haq to assist with pain management as well. 6. depression - continue citalopram 40mg daily. 7. DVT prophylaxis - Lovenox 8. chronic pain syndrome 2nd to metastatic disease - see above. 9. hyponatremia - resolved. 10. encephalopathy, likely toxic from benadryl/dilaudid/steroids/etc. d/c benadryl - change to atarax; this may even help anxiety. wean steroids. cannot rule out brain mets but no plan to image the head. sister updated dispo planning Continued [facility] stay due to: multiple IV medications needed Discharge planning: home with Hospice
[2017-06-19] MEDS: FAMOTIDINE 20 MG TAB PO SCH (19:45)
[2017-06-19] MEDS: DOXEPIN HCL 10 MG CAP PO SCH (19:46)
[2017-06-19] MEDS: TRIAMCINOLONE ACET 0.1% CR 80 GM TUBE EXT PRN (22:59)
[2017-06-20] VITALS (10 sets, daily range): BP systolic 92–110; BP diastolic 60–74; PULSE 79–106; TEMP 36.3–36.6; O2SAT 85–94
[2017-06-20] MEDS: hydrOXYzine HCL 25 MG TAB PO PRN ×3 (01:31→16:48)
[2017-06-20] MEDS: HYDROmorphone INJ 2 MG/ML SYR/VIAL IV PRN ×4 (01:32→20:33)
[2017-06-20] MEDS: CHECK FENTANYL PATCH PLACEMENT SCH ×3 (01:33→15:46)
[2017-06-20] MEDS: HYDROmorphone HCL 2 MG TAB PO PRN ×2 (05:38→13:31)
[2017-06-20] MEDS: LEVOFLOXACIN 750 MG TAB PO SCH (07:39)
[2017-06-20] MEDS: FAMOTIDINE 20 MG TAB PO SCH ×2 (07:39→20:35)
[2017-06-20] MEDS: ALBUT/IPRATROP 3MG/0.5MG NEB 3 ML VIAL INH SCH ×4 (08:13→19:55)
[2017-06-20] MEDS: FORMOTEROL FUMA NEBULIZER SOLN 20 MCG/2 ML VIAL INH SCH ×2 (08:13→19:55)
[2017-06-20] MEDS: MULTIVITAMIN TAB PO SCH (08:23)
[2017-06-20] MEDS: CITALOPRAM 40 MG TAB PO SCH (08:23)
[2017-06-20] MEDS: TRIAMCINOLONE ACET 0.1% CR 80 GM TUBE EXT SCH ×3 (08:23→16:41)
[2017-06-20] MEDS: ENOXAPARIN 40 MG/0.4 ML SYR SC SCH (08:24)
[2017-06-20] MEDS: POLYETHYLENE (MIRALAX) 17 GM PACK PO SCH (08:41)
[2017-06-20] MEDS: SENNA 8.6 MG TAB PO SCH (08:41)
[2017-06-20] MEDS: NYSTATIN SUSP 500,000 U/5 ML UDC PO SCH ×3 (13:31→20:34)
--- NOTE | 2017-06-20 17:34 | Progress Note ---
Subjective Date of Service: Jun 20, 2017. Subjective Pt evaluation today including: conversation w/ patient, physical exam, chart review, lab review, review of inpatient medication list Pain: right shoulder - still quite severe PO Intake: poor Voiding: no voiding problems slept poorly overnight anxious about multiple things she is quite upset about an encounter she had had with a nurse on the telemetry unit she recounted the details of her interaction with that person and still remains quite upset about it even days later continues with generalized pruritis but relieved by atarax atarax also helps her anxiety had radiation to the right shoulder this AM and tolerated such Problem List Medical Problems: (1) Acute alcohol intoxication Status: Acute (2) Alcohol abuse Status: Chronic (3) Alteration in self-care ability Status: Acute (4) Anxiety Status: Chronic (5) Breast abscess Status: Acute (6) Cellulitis Status: Acute (7) Closed head injury Status: Acute (8) Depression Status: Chronic (9) Facial abrasion Status: Acute (10) Facial contusion Status: Acute (11) Fibromyalgia Status: Chronic (12) Generalized weakness Status: Acute (13) Hepatitis Status: Chronic (14) Hyponatremia Status: Acute (15) Malnourished Status: Chronic (16) Pneumonia Status: Acute (17) Pneumonia, community acquired Status: Acute (18) PTSD (post-traumatic stress disorder) Status: Chronic Review of Systems Respiratory: + cough, No dyspnea at rest Cardiac: No chest pain Abdomen: + diarrhea, No pain Objective Vital Signs Date Time Temp Pulse Resp B/P (MAP) Pulse Ox O2 Delivery O2 Flow Rate FiO2 06/20/17 16:25 36.3 106 18 105/66 (79) 2.0 06/20/17 14:46 106 19 90 Nasal Cannula 2.0 06/20/17 12:30 91 Nasal Cannula 2.0 06/20/17 11:41 36.6 87 20 107/68 (81) 88 Nasal Cannula 2.0 06/20/17 11:12 93 19 85 Room Air 06/20/17 10:20 Nasal Cannula 4.0 06/20/17 08:13 86 19 94 Nasal Cannula 6.0 06/20/17 06:57 36.3 79 18 110/73 (85) 90 Nasal Cannula 4.0 06/20/17 03:57 36.5 86 18 110/74 (86) 93 Nasal Cannula 4.0 06/20/17 00:00 Nasal Cannula 4.0 06/19/17 23:58 36.2 88 18 106/67 (80) 90 Nasal Cannula 4.0 06/19/17 20:04 76 19 87 Nasal Cannula 4.0 06/19/17 19:52 36.7 92 18 104/67 (79) 92 Nasal Cannula 4.0 Physical Exam General Appearance: + thin, + pertinent finding (still anxious, borderline tearful, but not as confused as yesterday) ENT: + pertinent finding (copious thrush on tongue and buccal mucosa) Neck: no JVD Respiratory/Chest: no respiratory distress, no accessory muscle use, + crackles (extensive on left), + rhonchi, + wheezing Cardiovascular: no gallop, no murmur, + tachycardia Abdomen: normal bowel sounds, non tender, soft, no organomegaly Extremities: no pedal edema Neurologic/Psychiatric: alert, + disoriented (slight today) Skin: + pertinent finding (generalized dryness on arms, legs - lots of scratching noted during the visit ) Assessment and Plan 62yo female with: 1. Acute Hypoxic Respiratory failure 2nd to COPD exacerbation with possible pneumonia - There also appears to be worsening metastatic disease contributing to this. Cont levaquin for 7-10 days, today is day #5. Change decadron to 8mg PO BID. Wean over the next few days down to 4mg daily and leave on this dose for bone pain. Cont duonebs scheduled. I would recommend O2 at d/c regardless of O2 sats. 2. generalized pruritis - moisturizers, topical steroids, doxepin at HS. Continue atarax. Could she have liver mets causing some of this? Last imaging of abdomen did indeed show mets to liver. Cont to treat symptoms. 3. insomnia - doxepin 10mg at HS. 4. stage 4 and progressive breast ca - Hospice to be initiated at d/c. Palliative care consult appreciated. She wishes to continue palliative XRT only to right shoulder. SW to assist with arranging home hospice. 5. right shoulder pain 2nd to bony mets - Pain management consulted and saw the patient 06/14 prior to admission - continue fentanyl 25 mcg patch, dilaudid 2 mg PO or 1.5mg IV for severe pain. Previous regimen including tramadol, hydrocodone and oxycodone were not sufficient for pain control. Decadron may help pain. Again wean decadron to 4mg and then leave at this dose indefinitely. Dr. Haq to assist with pain management as well. 6. depression - continue citalopram 40mg daily. 7. DVT prophylaxis - can stop lovenox due to pending hospice status. 8. chronic pain syndrome 2nd to metastatic disease - see above. 9. hyponatremia - resolved. 10. encephalopathy, likely toxic from benadryl/dilaudid/steroids/etc - improved today. cannot rule out brain mets contributing to this as last brain MRI showed brain mets. 11. thrush - start nystatin QID 12. diarrhea - check c. diff; if neg then immodium prn update family later today dispo planning Continued [facility] stay due to: inadequate oral pain control, multiple IV medications needed Discharge planning: home with Hospice
[2017-06-20] MEDS ORDERED: LOPERAMIDE HCL 2 MG CAP PO PRN (17:45)
[2017-06-20] MEDS: LORAZEPAM 2 MG/ML 1 ML VIAL IV PRN (20:31)
[2017-06-20] MEDS: DOXEPIN HCL 10 MG CAP PO SCH (20:35)
[2017-06-20] MEDS: DEXAMETHASONE 4 MG TAB PO SCH (20:37)
[2017-06-21] VITALS (10 sets, daily range): BP systolic 90–131; BP diastolic 54–84; PULSE 86–104; TEMP 35.5–36.6; O2SAT 90–94
[2017-06-21] MEDS: CHECK FENTANYL PATCH PLACEMENT SCH ×4 (00:06→23:40)
[2017-06-21] MEDS: HYDROmorphone INJ 2 MG/ML SYR/VIAL IV PRN ×3 (03:13→23:43)
[2017-06-21] MEDS: LORAZEPAM 2 MG/ML 1 ML VIAL IV PRN (03:13)
[2017-06-21 06:58] LABS: CALCIUM 8.9 mg/dl (8.5-10.1); CREATININE 0.49 mg/dl (0.60-1.20); POTASSIUM 3.9 mmol/L (3.5-5.1)
[2017-06-21] MEDS: ALBUT/IPRATROP 3MG/0.5MG NEB 3 ML VIAL INH SCH ×4 (07:25→20:00)
[2017-06-21] MEDS: FORMOTEROL FUMA NEBULIZER SOLN 20 MCG/2 ML VIAL INH SCH ×2 (07:25→20:28)
[2017-06-21] MEDS: FAMOTIDINE 20 MG TAB PO SCH ×2 (07:30→21:13)
[2017-06-21] MEDS: MULTIVITAMIN TAB PO SCH (07:33)
[2017-06-21] MEDS: HYDROmorphone HCL 2 MG TAB PO PRN ×4 (07:33→21:19)
[2017-06-21] MEDS: DEXAMETHASONE 4 MG TAB PO SCH ×2 (07:33→21:13)
[2017-06-21] MEDS: NYSTATIN SUSP 500,000 U/5 ML UDC PO SCH ×4 (07:33→21:13)
[2017-06-21] MEDS: CITALOPRAM 40 MG TAB PO SCH (07:33)
[2017-06-21] MEDS: TRIAMCINOLONE ACET 0.1% CR 80 GM TUBE EXT SCH ×3 (07:34→21:12)
[2017-06-21] MEDS: LEVOFLOXACIN 750 MG TAB PO SCH (11:14)
--- NOTE | 2017-06-21 11:30 | Palliative Care Progress Note ---
Palliative Care Progress Note Date of Service Jun 21, 2017. Subjective Pt evaluation today including: conversation w/ patient, physical exam, chart review Pain: No change in R shoulder/arm pain after 4 XRT sessions PO Intake: fair Pt received IV Dilaudid and IV ativan overnight and became more lethargic. Nursing reports pt was found on the floor. No increased pain and no new pain reported by pt. Pt read handout on methadone and wishes to think about it when she is less sedated. Plan outlined in consult note if pt wishes to start it. Review of Systems unable to obtain due to sedation - pt dozes off quickly Objective Vital Signs Date Time Temp Pulse Resp B/P (MAP) Pulse Ox O2 Delivery O2 Flow Rate FiO2 06/21/17 11:09 36.6 86 18 99/66 (77) 92 4.0 06/21/17 11:00 Nasal Cannula 4.0 06/21/17 07:34 35.5 102 17 105/69 (81) 90 06/21/17 07:29 104 20 90 Nasal Cannula 3.0 06/21/17 04:18 36.3 97 20 119/79 (92) 91 Nasal Cannula 4.0 06/21/17 00:05 36.5 90 20 131/84 (100) 91 Nasal Cannula 2.0 06/21/17 00:00 Nasal Cannula 3.0 06/20/17 19:56 102 19 92 Nasal Cannula 2.0 06/20/17 18:55 36.6 94 18 92/60 (71) 88 Nasal Cannula 2.0 06/20/17 16:25 36.3 106 18 105/66 (79) 2.0 06/20/17 16:00 Nasal Cannula 2.5 06/20/17 14:46 106 19 90 Nasal Cannula 2.0 06/20/17 12:30 91 Nasal Cannula 2.0 06/20/17 11:41 36.6 87 20 107/68 (81) 88 Nasal Cannula 2.0 Physical Exam General Appearance: no apparent distress Eyes: EOMI ENT: hearing grossly normal Neck: supple Respiratory/Chest: + decreased breath sounds, + rhonchi, + pertinent finding ( productive cough) Cardiovascular: regular rate, rhythm Abdomen: non tender Extremities: no pedal edema Neurologic/Psychiatric: + pertinent finding (drowsy) Skin: warm/dry Laboratory Results Last 24 Hours Test 06/21/17 05:50 Sodium Level 133 mmol/L Potassium Level 3.9 mmol/L Chloride Level 94 mmol/L Carbon Dioxide Level 33 mmol/L Anion Gap 6.0 mmol/L Blood Urea Nitrogen 10 mg/dl Creatinine 0.49 mg/dl Est Creatinine Clear Calc Drug Dose 97.6 ml/min Estimated GFR () 121.9 Estimated GFR (Non- 105.2 BUN/Creatinine Ratio 21.2 Random Glucose 132 mg/dl Calcium Level 8.9 mg/dl Magnesium Level 2.3 mg/dl Assessment and Plan (1) Pain due to malignant neoplasm metastatic to bone Status: Chronic Assessment & Plan: Pt considering methadone - would start 5 mg TID and monitor for sedation due to potentiation of Dilaudid. Decadron useful with boen pain. 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
[2017-06-21] MEDS: FENTANYL PATCH REMOVE & WASTE SCH (12:41)
[2017-06-21] MEDS: FENTANYL 25 MCG/HR TDSY TD SCH (12:42)
--- NOTE | 2017-06-21 17:12 | Progress Note ---
Subjective Date of Service: Jun 21, 2017. Subjective this pt is slightly confused as she did have some ativan for anxiety caused by air hunger from her metastatic lung and breast cancer, she is able to recognize me from last week and answer questions although she is tired Problem List Medical Problems: (1) Acute alcohol intoxication Status: Acute (2) Alcohol abuse Status: Chronic (3) Alteration in self-care ability Status: Acute (4) Anxiety Status: Chronic (5) Breast abscess Status: Acute (6) Cellulitis Status: Acute (7) Closed head injury Status: Acute (8) Depression Status: Chronic (9) Facial abrasion Status: Acute (10) Facial contusion Status: Acute (11) Fibromyalgia Status: Chronic (12) Generalized weakness Status: Acute (13) Hepatitis Status: Chronic (14) Hyponatremia Status: Acute (15) Malnourished Status: Chronic (16) Pneumonia Status: Acute (17) Pneumonia, community acquired Status: Acute (18) PTSD (post-traumatic stress disorder) Status: Chronic Review of Systems Constitutional: + weakness, + fatigue, No fever, No chills Respiratory: + cough, + shortness of breath, + dyspnea on exertion Cardiac: + edema, No chest pain Abdomen: No pain, No nausea Musculoskeletal: + joint pain, + muscle pain Neurologic: + memory loss, + weakness Psychiatric: + depression symptoms, + anxiety Objective Vital Signs Date Time Temp Pulse Resp B/P (MAP) Pulse Ox O2 Delivery O2 Flow Rate FiO2 06/21/17 15:19 36.1 94 18 104/64 (77) 91 4.0 06/21/17 15:11 100 18 93 Nasal Cannula 4.0 06/21/17 11:20 101 20 93 Nasal Cannula 4.0 06/21/17 11:09 36.6 86 18 99/66 (77) 92 4.0 06/21/17 11:00 Nasal Cannula 4.0 06/21/17 07:34 35.5 102 17 105/69 (81) 90 06/21/17 07:29 104 20 90 Nasal Cannula 3.0 06/21/17 04:18 36.3 97 20 119/79 (92) 91 Nasal Cannula 4.0 06/21/17 00:05 36.5 90 20 131/84 (100) 91 Nasal Cannula 2.0 06/21/17 00:00 Nasal Cannula 3.0 06/20/17 19:56 102 19 92 Nasal Cannula 2.0 06/20/17 18:55 36.6 94 18 92/60 (71 88 Nasal Cannula 2.0 Physical Exam General Appearance: + moderate distress, + thin Eyes: normal inspection, sclerae normal Respiratory/Chest: + respiratory distress, + decreased breath sounds, + rhonchi Cardiovascular: regular rate, rhythm, + systolic murmur Abdomen: normal bowel sounds, non tender, soft Extremities: no pedal edema, no calf tenderness Neurologic/Psychiatric: alert, + depressed affect Laboratory Results Last 24 Hours Test 06/21/17 05:50 Sodium Level 133 mmol/L Potassium Level 3.9 mmol/L Chloride Level 94 mmol/L Carbon Dioxide Level 33 mmol/L Anion Gap 6.0 mmol/L Blood Urea Nitrogen 10 mg/dl Creatinine 0.49 mg/dl Est Creatinine Clear Calc Drug Dose 97.6 ml/min Estimated GFR () 121.9 Estimated GFR (Non- 105.2 BUN/Creatinine Ratio 21.2 Random Glucose 132 mg/dl Calcium Level 8.9 mg/dl Magnesium Level 2.3 mg/dl Assessment and Plan 61 y/o F presents with acute on chronic respiratory failure with hypoxia, has a PMHx of Invasive ductal carcinoma R breast Mar 2016 and 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 The day of her presentation was at radiation onc treatment and in and out of the cold air Acute Hypoxic Respiratory failure / COPD exacerbation /possible LLL pneumonia/ worsening metastatic dz improved, pt is able to be tapered from high oxygen requirements levaquin for 7 days, Last dose 06/22 decadron to 8mg PO BID. Wean as able Cont duonebs scheduled. - CT chest reviewed: pleural effusions- shows progression of metastatic disease/ hilar adenopathy Metastatic Breast carcinoma - usually follows with Dr. Camacho as outpatient: he is supportive of palliative direction, methadone added for symptom control with recommendation of palliative care Significant right shoulder pain- Pain management consulted and saw the patient 06/14 prior to admission: fentanyl 12 mcg patch, dilaudid 2 mg PO or IV for severe pain. Depression citalopram 40 mg daily for now insomnia - doxepin 10mg at HS. Toxic encephalopathy,likley from [facility] including ativan, may be also due to metastatic brain lesion and XRT to Brain, supportive care and judicious use of ativan and pain meds thrush - start nystatin QID diarrhea - check c. diff; neg -> immodium prn Continued [facility] stay due to: inadequate oral pain control, multiple IV medications needed Discharge planning: home with Hospice
[2017-06-21] MEDS: hydrOXYzine HCL 25 MG TAB PO PRN ×2 (17:31→23:44)
[2017-06-21] MEDS: DOXEPIN HCL 10 MG CAP PO SCH (21:13)
[2017-06-21] MEDS: METHADONE HCL 5 MG TAB PO SCH (21:19)
[2017-06-22] VITALS (9 sets, daily range): BP systolic 100–123; BP diastolic 64–75; PULSE 72–110; TEMP 36.4–36.8; O2SAT 90–92
[2017-06-22] MEDS: HYDROmorphone HCL 2 MG TAB PO PRN ×3 (01:37→12:11)
[2017-06-22] MEDS: HYDROmorphone INJ 2 MG/ML SYR/VIAL IV PRN ×2 (03:34→07:24)
[2017-06-22] MEDS: TRIAMCINOLONE ACET 0.1% CR 80 GM TUBE EXT PRN (03:34)
[2017-06-22] MEDS: hydrOXYzine HCL 25 MG TAB PO PRN (06:30)
[2017-06-22] MEDS: ALBUT/IPRATROP 3MG/0.5MG NEB 3 ML VIAL INH SCH ×3 (07:09→15:31)
[2017-06-22] MEDS: FORMOTEROL FUMA NEBULIZER SOLN 20 MCG/2 ML VIAL INH SCH (07:09)
[2017-06-22] MEDS: NYSTATIN SUSP 500,000 U/5 ML UDC PO SCH ×3 (07:24→16:38)
[2017-06-22] MEDS: TRIAMCINOLONE ACET 0.1% CR 80 GM TUBE EXT SCH ×2 (07:24→14:26)
[2017-06-22] MEDS: FAMOTIDINE 20 MG TAB PO SCH (07:25)
[2017-06-22] MEDS: DEXAMETHASONE 4 MG TAB PO SCH (07:25)
[2017-06-22] MEDS: CITALOPRAM 40 MG TAB PO SCH (07:25)
[2017-06-22] MEDS: MULTIVITAMIN TAB PO SCH (07:25)
[2017-06-22] MEDS: CHECK FENTANYL PATCH PLACEMENT SCH ×2 (07:30→16:11)
[2017-06-22] MEDS: METHADONE HCL 5 MG TAB PO SCH ×2 (07:36→14:27)
--- NOTE | 2017-06-22 10:53 | Palliative Care Progress Note ---
Palliative Care Progress Note Date of Service Jun 22, 2017. Subjective Pt evaluation today including: conversation w/ patient, physical exam, chart review, review of inpatient medication list Pain: improved PO Intake: fair Voiding: no voiding problems Pt sedated - received 2 doses of IV Dilaudid at 1.5 mg ( oral morphine equivalent of 60 mg ) and 2 doses of PO Dilaudid at 2 mg ( oral morphine equivalent of 16 mg) , she also received IV ativan X 1 at 1 mg. Would consider using PO ativan at 0.5 mg prn to avoid oversedation and could use PO morphine at 15 mg Q 4 hours prn for break thru pain while methadone reaches steady state ( expect to reach steady state by 06/28) . Pt wishes not to be sedated for pain relief. Her Fentanyl patch was increased on 06/18 to 25 mcg. Review of Systems Constitutional: + fatigue, No fever Eyes: No worsening of vision ENT: No hearing loss Respiratory: + cough, + dyspnea on exertion Cardiac: No chest pain, No edema Abdomen: No pain Female : No dysuria Neurologic: + weakness Psychiatric: + anxiety, + problem reported (h/o ETOH abuse) Heme: No abnormal bleeding/bruising Endo: + fatigue Skin: No new/changing skin lesions Objective Vital Signs Date Time Temp Pulse Resp B/P (MAP) Pulse Ox O2 Delivery O2 Flow Rate FiO2 06/22/17 08:30 Nasal Cannula 4.0 06/22/17 07:16 36.5 82 20 103/64 (77) 92 Oxymask 4.0 06/22/17 07:12 110 18 92 Mask 4.0 06/22/17 04:04 36.6 72 20 123/75 (91) 90 Nasal Cannula 4.0 06/22/17 00:49 36.5 87 20 100/69 (79) 91 Nasal Cannula 4.0 06/22/17 00:00 Nasal Cannula 4.0 06/21/17 20:31 97 18 91 Nasal Cannula 4.0 06/21/17 19:21 36.3 89 20 90/54 (66) 94 Nasal Cannula 4.0 06/21/17 15:19 36.1 94 18 104/64 (77) 91 4.0 06/21/17 15:11 100 18 93 Nasal Cannula 4.0 06/21/17 11:20 101 20 93 Nasal Cannula 4.0 06/21/17 11:09 36.6 86 18 99/66 (77) 92 4.0 06/21/17 11:00 Nasal Cannula 4.0 Physical Exam General Appearance: no apparent distress, + pertinent finding (drowsy) Eyes: EOMI ENT: hearing grossly normal Respiratory/Chest: + decreased breath sounds, + rhonchi Cardiovascular: regular rate, rhythm Abdomen: non tender Extremities: no pedal edema Neurologic/Psychiatric: + pertinent finding (drowsy) Skin: warm/dry Assessment and Plan (1) Pain due to malignant neoplasm metastatic to bone Status: Chronic Assessment & Plan: On day 4 of methadone - expect to reach steady state by day7. Methadone will potentiate her IV Dilaudid - pt able to take PO - would switch to oral morphine at 15 mg Q 4 hours prn. Pt sedated - would d/c IV ativan and use PO at 0.5 or 1 mg prn. 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
[2017-06-22] MEDS ORDERED: MTH5 PO (16:08)
[2017-06-22] MEDS ORDERED: ATV5 PO (16:08)
[2017-06-22] MEDS ORDERED: DXM4 PO (16:08)
[2017-06-22] MEDS ORDERED: IPRASOL4 INH (16:08)
[2017-06-22] MEDS ORDERED: HYDR2TAB48 PO (16:08)
[2017-06-22] MEDS ORDERED: DRGTP25 TD (16:08)
[2017-06-22] MEDS ORDERED: SNQ10 PO (16:08)
--- NOTE | 2017-06-22 16:10 | Discharge Instructions ---
Discharge Instructions Date of Service Jun 22, 2017. Admission Reason for Admission: Copd Exacerbation, Hypoxia Discharge Discharge Diagnosis / Problem: shortness of breath Discharge Goals Goal(s): Therapeutic intervention Activity Recommendations Activity Limitations: as noted below Lifting Limitations: gradually increase as tolerated Exercise/Sports Limitations: gradually increase as tolerated . Current Hospital Diet Patient's current hospital diet: Regular Diet Discharge Diet Recommended Diet: Regular Diet Pending Studies Studies pending at discharge: no Medical Emergencies . Who to Call and When: Medical Emergencies: If at any time you feel your situation is an emergency, please call 911 immediately. . Non-Emergent Contact Non-Emergency issues call your: Specialist (hospice provider) . . "Provider Documentation" section prepared by Luiz Anderson. . VTE Core Measure Inpt VTE Proph given/why not?: SCD's
[2017-06-22] MEDS ORDERED: OXGN (16:12)
--- NOTE | 2017-06-22 18:43 | Discharge Summary ---
Discharge Summary Date of Service Jun 22, 2017. Discharge Summary Admission Date: Jun 15, 2017 at 02:10 Discharge Date: Jun 22, 2017 Discharge Disposition: Home with services (hospice care) Principal Diagnosis: acute on chronic respiratory failure from metastatic cancer breast/lung Problems/Secondary Diagnoses: (1) Alcohol abuse Status: Chronic (2) Anxiety Status: Chronic (3) Depression Status: Chronic (4) Fibromyalgia Status: Chronic (5) Hepatitis Status: Chronic (6) Malnourished Status: Chronic (7) PTSD (post-traumatic stress disorder) Status: Chronic Immunizations: Have You Had Influenza Vaccine: Yes History of Tetanus Vaccine?: Yes History of Pneumococcal: Yes Pneumococcal Date: Jun 26, 2009 History of Hepatitis B Vaccine: No Medication Reconciliation New Medications: Home O2 Therapy (Oxygen) Gas 4 LITERS NA CONTINOUS, #1 UNIT home and portable units Dexamethasone (Dexamethasone) 4 Mg Tab 8 MG PO UD, #30 TAB 2 pills bid x4 days then 1 pill am 2 pills pm x4 days then 1 bid x4 days then one a day Doxepin Hcl (Sinequan) 10 Mg Cap 10 MG PO HS, #30 CAP Fentanyl (Fentanyl) 25 Mcg Tdsy 25 MCG TD Q3D@1200, #10 PATCH Ipratropium-Albuterol (Duoneb) 3 Ml Nebu 3 ML INH Q2H PRN for SOB/WHEEZING, #60 DOSE 6 Refills Lorazepam (Lorazepam) 0.5 Mg Tab 0.5-1 MG PO Q6H PRN for Anxiety, #30 TAB Methadone HCl (Methadone HCl) 5 Mg Tab 5 MG PO TID, #90 TAB Continued Medications: Citalopram (Citalopram Hydrobromide) 40 Mg Tab 40 MG PO QAM Fluticasone Prop/Salmeterol (Advair Diskus 250/50 60 Dose) 1 Ea Aerp 1 PUFF INH BID PRN for SOB/Wheezing, INHALER Fluticasone Propionate (Nasal) (Flonase Allergy Relief) 50 Mcg/Act Spr 2 SPRAYS GISSELLE BID PRN for Nasal Congestion Hydromorphone Hcl (Dilaudid) 2 Mg Tab 2 MG PO UD/PRN, #30 TAB (This prescription has been renewed) Ipratropium-Albuterol (Combivent Respimat) 1 Aer Aer 1 PUFFS INH Q4 PRN for Shortness of Breath, INH Ondansetron Hcl (Zofran) 8 Mg Tab 8 MG PO TID PRN for Nausea, TAB Saline (Saline Nasal [place] ) 0.65 % Spr 1-2 SPRY GISSELLE PRN Discontinued Medications: Diphenhydramine Hcl (Benadryl) 25 Mg Cap 25 MG PO Q4H PRN for hives, CAP Fentanyl (Fentanyl) 12 Mcg Tdsy 12 MCG TD [id number] Multivitamin (Multivitamin) Tab 1 TAB PO QAM, TAB [IV chemo] () weekly Discharge Exam Review of Systems: Constitutional: No fever, No chills Respiratory: + cough, + sputum, + shortness of breath, + dyspnea on exertion , + dyspnea at rest Cardiovascular: No chest pain, No orthopnea, No edema Abdomen: + pain, + nausea Musculoskeletal: + joint pain, + muscle pain, + swelling Neurologic: No memory loss, No paralysis, No weakness Psychiatric: No depression symptoms, No anhedonism Physical Exam: General Appearance: WD/WN, no apparent distress Eyes: normal inspection, sclerae normal Neck: supple, no JVD Respiratory/Chest: chest non-tender, + accessory muscle use, + rales, + rhonchi Cardiovascular: regular rate, rhythm, no murmur Abdomen / GI: normal bowel sounds, soft Extremities: no pedal edema, normal range of motion Neurologic/Psychiatric: alert, oriented x 3 Hospital Course 61 y/o F presents with acute on chronic respiratory failure with hypoxia, has a PMHx of Invasive ductal carcinoma R breast Mar 2016 and 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 The day of her presentation was at radiation onc treatment and in and out of the cold air Acute Hypoxic Respiratory failure / COPD exacerbation /possible LLL pneumonia/ worsening metastatic dz improved, pt is able to be tapered from high oxygen requirements, but still will require 4 liters at home levaquin for 7 days, Last dose 1/5 decadron to 8mg PO BID. will taper as able at home on hospice - CT chest reviewed: pleural effusions- shows progression of metastatic disease/ hilar adenopathy Metastatic Breast carcinoma - usually follows with Dr. Camacho as outpatient: he is supportive of palliative direction, methadone added for symptom control with recommendation of palliative care, will complete XRT at home on hospice Significant right shoulder pain- Pain management consulted and saw the patient 06/14 prior to admission: fentanyl 25 mcg patch, methadone, and prn dilaudid Depression citalopram 40 mg daily for now insomnia - doxepin 10mg at HS. Toxic encephalopathy,likely from medication including Ativan, may be also due to metastatic brain lesion and XRT to Brain, supportive care and judicious use of ativan and pain meds thrush - start nystatin QID, completed course diarrhea - check c. diff; neg -> immodium prn Total Time Spent: Greater than 30 minutes This includes examination of the patient, discharge planning, medication reconciliation, and communication with other providers. Discharge Instructions Please refer to the electronic Patient Visit Report (Discharge Instructions) for additional information.
== END 2017-06-22 18:32 | disposition hospice, home (50) | DRG 189 ==
LOC: EDBD 22:41 → C.EDB 22:42 → C.2T 06-15 02:10 → ENRESERV 06-15 02:19 → C.4E 06-17 19:00
PROVIDERS: ADMIT Hospitalist; ATTEND Internal Medicine
DX: J96.21 Acute and chronic respiratory failure with hypoxia (principal); G92 Toxic encephalopathy; J18.9 Pneumonia, unspecified organism; C78.02 Secondary malignant neoplasm of left lung; C79.51 Secondary malignant neoplasm of bone; C79.31 Secondary malignant neoplasm of brain; J44.1 Chronic obstructive pulmonary disease with (acute) exacerbation; J44.0 Chronic obstructive pulmonary disease with (acute) lower respiratory infection; Z51.5 Encounter for palliative care; C77.9 Secondary and unspecified malignant neoplasm of lymph node, unspecified; E87.1 Hypo-osmolality and hyponatremia; B37.0 Candidal stomatitis; C50.912 Malignant neoplasm of unspecified site of left female breast; G89.3 Neoplasm related pain (acute) (chronic); M25.511 Pain in right shoulder; G89.4 Chronic pain syndrome; T42.4X5A Adverse effect of benzodiazepines, initial encounter; R19.7 Diarrhea, unspecified; F32.9 Major depressive disorder, single episode, unspecified; F41.9 Anxiety disorder, unspecified; G47.00 Insomnia, unspecified; Z51.81 Encounter for therapeutic drug level monitoring; Z79.899 Other long term (current) drug therapy; Z79.891 Long term (current) use of opiate analgesic; Z87.898 Personal history of other specified conditions; Z66 Do not resuscitate; Z87.891 Personal history of nicotine dependence